=== PATIENT | male | born 1955 | race Hispanic/Latino ===

== ENCOUNTER 2023-12-19 17:22 | Inpatient (IN) | payer BC, OTHER ==
[2023-12-19] MEDS ORDERED: NA CHLORIDE 0.9% 1,000 ML ONE ×2 (18:10→20:11)
[2023-12-19 18:21] LABS: Absolute Lymphocytes (CBC) 0.2 K/uL (0.7-4.9); Absolute Monocytes 0.5 K/uL (0.1-1.3); Absolute Neutrophil 5.9 K/uL (1.8-8.0); Basophils % 0.2 % (0-1.3); Eosinophils % 0.7 % (0-4.4); Hematocrit 40.6 % (39.6-49.0); Hemoglobin 13.3 g/dL (13.6-17.9); Lymphocytes % 2.9 % (15.3-44.8); MCH 30.3 pg (27.0-35.0); MCHC 32.7 g/dL (32.0-36.0); MCV 92.7 fL (80-100); MPV 12.4 fL (7.6-11.3); Monocytes % 8.1 % (3.3-12.3); Neutrophils % 88.1 % (41.7-73.7); Platelets 85 thou/uL (152-406); RBC Red Blood Cell Count 4.38 M/uL (4.33-5.43)
[2023-12-19 18:39] LABS: Magnesium 2.5 mg/dL (1.6-2.4)
[2023-12-19 18:52] LABS: PTT, Activated Partial Thromb 21.8 SECONDS (24.3-36.9); Protime INR 1.19
[2023-12-19] MEDS ORDERED: CALCIUM GLUCONATE 1 GM IVPB 2 GM/100 ML BAG IV ONE (19:03)
[2023-12-19 19:08] LABS: Band Neutrophils 11 % (0-1); Blood Morphology Comment NOT SEEN (NOT SEEN); Differential Total Cells Count 100; Lymphocytes 4 % (15-42); Monocytes 14 % (0-10); Platelet Estimate DECR; Segmented Neutrophils 71 % (40-80); Toxic Granulation 1+; White Blood Cell Scan OK (OK)
[2023-12-19] MEDS ORDERED: KCL 20 MEQ/100 mL IVPB 100 ML IV ONE (20:11)
--- NOTE | 2023-12-19 20:53 | RAD REPORT ---
[facility] 6[facility]58 pm CLINICAL HISTORY: hypotension COMPARISON: No comparisons TECHNIQUE: Portable AP view of the chest. FINDINGS: The lungs are clear. No pneumothorax or effusion. The cardiomediastinal contours are unre markable. IMPRESSION: No acute cardiopulmonary process.
--- NOTE | 2023-12-19 21:09 | ER ---
Nurse's Notes [facility] Name: Shailesh Zavala Age: 68 yrs Sex: Male : 1955 Arrival Date: 12/19/2023 Time: 17:22 Bed 14 Private MD: Darren Allan Diagnosis: Hypocalcemia, hypokalemia, hyponatremia, dehydration, bandemia Presentation: 12/18 17:49 Chief complaint: Patient states: sent from dr office for low calcium. Coronavirus ko1 screen: At this time, the client does not indicate any symptoms associated with coronavirus-19. Ebola Screen: No symptoms or risks identified at this time. Initial Sepsis Screen: Does the patient meet any 2 criteria? No. Patient's initial sepsis screen is negative. Does the patient have a suspected source of infection? No. Patient's initial sepsis screen is negative. Risk Assessment: Do you want to hurt yourself or someone else? Patient reports no desire to harm self or others. Onset of symptoms is unknown. 17:49 Method Of Arrival: Wheelchair ko1 17:49 Acuity: LUCRETIA 3 ko1 Triage Assessment: 17:52 General: Appears in no apparent distress. ill, Behavior is calm, cooperative, ko1 appropriate for age. Pain: Complains of pain in abdomen. Historical: - Allergies: 17:52 No Known Allergies; ko1 - PMHx: 17:52 multiple myeloma; ko1 - Immunization history:: Adult Immunizations up to date. - Infectious Disease History:: Denies. - Social history:: Smoking status: Patient denies any tobacco usage or history of. - Family history:: not pertinent. - Hospitalizations: : No recent hospitalization is reported. Screenin:43 [facility] ED Fall Risk Assessment (Adult) History of falling in the last 3 months, cp4 including since admission No falls in past 3 months (0 pts) Confusion or Disorientation No (0 pts) Intoxicated or Sedated No (0 pts) Impaired Gait No (0 pts) Mobility Assist Device Used No (0 pt) Altered Elimination No (0 pt) Score/Fall Risk Level 0 - 2 = Low Risk. Abuse screen: Denies threats or abuse. Nutritional screening: No deficits noted. Tuberculosis screening: No symptoms or risk factors identified. Assessment: 18:43 General: Appears ill, Behavior is calm, cooperative, appropriate for age. Pain: Denies cp4 pain. Neuro: Level of Consciousness is awake, alert, obeys commands, Oriented to person, place, time, situation, Ancillary Specialist are equal bilaterally Moves all extremities. Gait is unsteady, Speech is normal, Facial symmetry appears normal, Pupils are PERRLA, Intact. 22:10 General: Appears in no apparent distress. uncomfortable, Behavior is calm, cooperative, jw7 appropriate for age. Pain: Denies pain. Neuro: Level of Consciousness is awake, alert, obeys commands, Oriented to person, place, time, situation. Cardiovascular: Capillary refill < 3 seconds Patient's skin is warm and dry. 22:10 GI: Abdomen is round non-distended, Bowel sounds present X 4 quads. Abd is soft Abdomen jw7 is tender to palpation. : No deficits noted. No signs and/or symptoms were reported regarding the genitourinary system. EENT: No deficits noted. No signs and/or symptoms were reported regarding the EENT system. Derm: Skin is intact, is healthy with good turgor, Skin is dry, Skin is normal, Skin temperature is warm. Musculoskeletal: Circulation, motion, and sensation intact. Range of motion: intact in all extremities. 22:10 Respiratory: Airway is patent Trachea midline Respiratory effort is even, unlabored, jw7 Respiratory pattern is regular, symmetrical, Breath sounds are clear bilaterally. Vital Signs: 17:49 BP 98 / 52; Pulse 93; Resp 16; Temp 97.6; Pulse Ox 97% ; ko1 18:30 BP 81 / 51; Pulse 83; Resp 18; Pulse Ox 94% ; cp4 19:00 BP 77 / 49; Pulse 82; Resp 18; Pulse Ox 96% ; cp4 19:24 BP 88 / 46; Pulse 84; Resp 18; Pulse Ox 96% ; Weight 80.29 kg; cp4 19:57 BP 90 / 46; Pulse 82; Resp 17; Pulse Ox 96% ; cp4 20:30 BP 87 / 46; Pulse 84; Resp 18; Pulse Ox 96% ; cp4 21:00 BP 91 / 48; Pulse 82; Resp 17; Pulse Ox 96% ; cp4 22:15 BP 91 / 49; Pulse 85; Resp 18 S; Pulse Ox 93% on R/A; jw7 ED Course: 17:24 Patient arrived in ED. mr 17:24 Darren Allan DO is Private Physician. mr 17:32 Toby Dennis MD is Attending Physician. rn 17:52 Triage completed. ko1 17:52 Arm band placed on right wrist. Patient placed in an exam room, on a stretcher, on ko1 senior environmental scientist, on pulse oximetry, Patient notified of wait time. 17:54 Winter Bhatia is Primary Nurse. cp4 18:11 Magnesium Sent. em1 18:11 BMP Sent. em1 18:11 CBC with Diff Sent. em1 18:11 Initial lab(s) drawn, by al, sent to lab. Inserted saline lock: 22 gauge in right em1 forearm, using aseptic technique. Blood collected. 18:43 Placed in gown. Bed in low position. Call light in reach. Side rails up X2. cp4 18:43 Blood Culture Adult (2) Sent. cp4 18:43 No provider procedures requiring assistance completed. cp4 18:59 Chest Single View XRAY In Process Unspecified. EDMS 20:04 Attending Physician role handed off by Toby Dennis MD sp3 20:04 Onel Allan MD is Attending Physician. sp3 21:08 Prince Sawyer MD is Hospitalizing Provider. sp3 21:09 CT Abd/Pelvis - IV Contrast Only In Process Unspecified. EDMS 22:10 Provided Education on: Use of Call Light. jw7 22:34 Patient admitted, IV remains in place. jw7 Administered Medications: 18:39 Drug: NS 0.9% IV 1000 ml IV at 1000 ml once Route: IV; Rate: 1000 ml; Site: right cp4 antecubital; 20:15 Follow up: Response: No adverse reaction; IV Status: Completed infusion cp4 19:07 Drug: Calcium Gluconate IVPB 2 grams IVPB once over 60 mins; (mix in NS 100 mL) Route: cp4 IVPB; Infused Over: 60 mins; Site: right antecubital; 20:02 Follow up: Response: No adverse reaction; IV Status: Completed infusion cp4 20:15 Drug: NS 0.9% IV 1000 ml IV at 1000 ml once Route: IV; Rate: 1000 ml; Site: right cp4 antecubital; 22:35 Follow up: Response: No adverse reaction; IV Status: Completed infusion; IV Intake: jw7 1000ml 20:15 Drug: Potassium Chloride IV 20 mEq IV at calculated rate once; administer over 1-2 cp4 hours Route: IV; Rate: calculated rate; Site: right antecubital; 22:35 Follow up: Response: No adverse reaction; IV Status: Infusion continued upon admission; jw7 IV Intake: 25ml 20:43 Drug: NS 0.9% IV (30 ml/kg) 30 ml/kg IV at bolus once; subtract fluids already given, cp4 for total of 30ml/kg Route: IV; Rate: bolus; Site: right antecubital; 22:35 Follow up: Response: No adverse reaction; IV Status: Completed infusion; IV Intake: jw7 2408ml 22:00 Drug: Cefepime IVPB 1 grams IVPB at 200 ml/hr once over 30 mins; (mix in NS 100 mL) cp4 Route: IVPB; Rate: 200 ml/hr; Infused Over: 30 mins; Site: right antecubital; 22:34 Follow up: Response: No adverse reaction; IV Status: Completed infusion; IV Intake: jw7 100ml Medication: 18:43 VIS not applicable for this client. cp4 Intake: 22:34 IV: 100ml; Total: 100ml. jw7 22:35 IV: 2408ml; Total: 2508ml. jw7 22:35 IV: 1000ml; Total: 3508ml. jw7 22:35 IV: 25ml; Total: 3533ml. jw7 Outcome: 21:09 Decision to Hospitalize by Provider. sp3 22:33 Admitted to OR accompanied by nurse, family with patient, via stretcher, norris 22:33 Condition: stable 22:33 Instructed on the need for admit, Need for Surgery Demonstrated understanding of instructions, 22:37 Patient left the ED. jw7 Signatures: Dispatcher [employer] EDWA HamiltonGaviota cline, Reg Reg mr Toby Dennis MD MD rn Martinez, Eric em1 Patel, Setul, MD MD sp3 Nakia Valencia RN RN jwMadyson Roberts RN RN Winter Meade cp4 Corrections: (The following items were deleted from the chart) 22:33 22:27 General: Appears in no apparent distress. uncomfortable, Behavior is calm, jw7 cooperative, appropriate for age, jwTrisha 22:33 22:27 Pain: Denies pain. jw7 jw7 22:27 Neuro: Level of Consciousness is awake, alert, obeys commands, Oriented to jw7 person, place, time, situation, jw7 : Cardiovascular: Capillary refill < 3 seconds Patient's skin is warm and dry. jw7 7 :27 Respiratory: Airway is patent Trachea midline Respiratory effort is even, jw7 unlabored, Respiratory pattern is regular, symmetrical, jw7
--- NOTE | 2023-12-19 21:09 | EDPHYS ---
Physician Documentation [facility] Name: Shailesh Zavala Age: 68 yrs Sex: Male : 1955 Arrival Date: 12/19/2023 Time: 17: Bed 14 Private MD: Jerrell [facility] ED Physician Onel Allan HPI: 12/18 17:59 This 68 yrs old Male presents to ER via Wheelchair with complaints of Abnormal rn picu Results. 17:59 Patient reports has multiple myeloma and currently undergoing chemotherapy. Had blood rn work drawn and showed low calcium, told to come to emergency room for infusion. No other acute complaints. Reports chronic lower abdominal pain that he is being worked up with GI and PCP. No vomiting or diarrhea. No fever. Reports muscle cramping and generalized weakness. Onset: The symptoms/episode began/occurred at an unknown time. Severity of symptoms: At their worst the symptoms were mild in the emergency department the symptoms are unchanged. The patient has not experienced similar symptoms in the past. The patient has been recently seen by a physician:. Historical: - Allergies: 17:52 No Known Allergies; ko1 - PMHx: 17:52 multiple myeloma; ko1 - Immunization history:: Adult Immunizations up to date. - Infectious Disease History:: Denies. - Social history:: Smoking status: Patient denies any tobacco usage or history of. - Family history:: not pertinent. - Hospitalizations: : No recent hospitalization is reported. ROS: 17:59 Constitutional: Negative for fever, chills, and weight loss, Neck: Negative for injury, rn pain, and swelling, Cardiovascular: Negative for chest pain, palpitations, and edema, Respiratory: Negative for shortness of breath, cough, wheezing, and pleuritic chest pain, Abdomen/GI: Negative for abdominal pain, nausea, vomiting, diarrhea, and constipation, Back: Negative for injury and pain, MS/Extremity: Negative for injury and deformity, Skin: Negative for injury, rash, and discoloration, Neuro: Positive for generalized weakness Exam: 17:59 Constitutional: This is a well developed, well nourished patient who is awake, alert, rn and in no acute distress. ENT: Dry mucous membranes Cardiovascular: Regular rate and rhythm. No pulse deficits. Respiratory: No increased work of breathing, no retractions or nasal flaring. Abdomen/GI: Soft, non-tender Neuro: Awake and alert, GCS 15 Vital Signs: 17:49 BP 98 / 52; Pulse 93; Resp 16; Temp 97.6; Pulse Ox 97% ; ko1 18:30 BP 81 / 51; Pulse 83; Resp 18; Pulse Ox 94% ; cp4 19:00 BP 77 / 49; Pulse 82; Resp 18; Pulse Ox 96% ; cp4 19:24 BP 88 / 46; Pulse 84; Resp 18; Pulse Ox 96% ; Weight 80.29 kg; cp4 19:57 BP 90 / 46; Pulse 82; Resp 17; Pulse Ox 96% ; cp4 20:30 BP 87 / 46; Pulse 84; Resp 18; Pulse Ox 96% ; cp4 21:00 BP 91 / 48; Pulse 82; Resp 17; Pulse Ox 96% ; cp4 22:15 BP 91 / 49; Pulse 85; Resp 18 S; Pulse Ox 93% on R/A; jw7 MDM: 17:32 Patient medically screened. rn 19:31 ED course: Once triage, patient noted to be hypotensive. Will order full 30/kg bolus rn and reassess situation. No source of infection identified at this time.. 21:06 Data reviewed: vital signs, lab test result(s). ED course: I spoke to patient and sp3 confirmed the patient is not on immunotherapy. Given his extensive electrolyte abnormalities and bandemia, I have started cefepime. Patient will be admitted to hospitalist service for further follow-up and intervention as indicated.. 21:56 ED course: CT scan demonstrates extensive free air from bowel perforation. I have sp3 discussed this with Dr. Moore who will be coming in for emergency surgery. Patient will be placed in the ICU for continued hemodynamic support. Dr. Silverio torres is also here in the ED evaluating the patient.. 22:01 ED course: . sp3 12/18 17:50 Order name: CBC with Diff; Complete Time: 19:10 rn 12/18 17:50 Order name: BMP; Complete Time: 19:02 rn 12/18 17:50 Order name: Magnesium; Complete Time: 19:02 rn 12/18 18:14 Order name: Blood Culture Adult (2) rn 12/18 18:14 Order name: CMP rn 12/18 18:14 Order name: Lactate w/ 2H reflex if indic.; Complete Time: 19:10 rn 12/18 18:14 Order name: Protime (+inr); Complete Time: 19:02 rn 12/18 18:14 Order name: Ptt, Activated; Complete Time: 19:02 rn 12/18 18:14 Order name: Urinalysis w/ reflexes rn 12/18 18:28 Order name: CBC Smear Scan; Complete Time: 19:10 EDMS 12/18 19:07 Order name: Manual Differential; Complete Time: 19:10 EDMS 12/18 18:14 Order name: Chest Single View XRAY; Complete Time: 21:51 rn 12/18 18:16 Order name: CT Abd/Pelvis - IV Contrast Only; Complete Time: 21:56 rn 12/18 17:50 Order name: EKG; Complete Time: 17:51 rn 12/18 17:50 Order name: IV Start; Complete Time: 18:11 rn 12/18 17:50 Order name: EKG - Nurse/Tech; Complete Time: 18:43 rn 12/18 18:14 Order name: Accucheck; Complete Time: 18:39 rn 12/18 18:14 Order name: Cardiac monitoring; Complete Time: 18:39 rn 12/18 18:14 Order name: IV Saline Lock - Large Bore; Complete Time: 18:39 rn 12/18 18:14 Order name: Labs collected and sent; Complete Time: 18:39 rn 12/18 18:14 Order name: O2 Per Protocol; Complete Time: 18:39 rn 12/18 18:14 Order name: O2 Sat Monitoring; Complete Time: 18:39 rn 12/18 18:14 Order name: Vital Signs; Complete Time: 18:39 rn 12/18 19:42 Order name: Misc. Order: Recollect - Blue Top; Complete Time: 20:10 ty 12/18 21:57 Order name: NPO; Complete Time: 22:00 sp3 Administered Medications: 18:39 Drug: NS 0.9% IV 1000 ml IV at 1000 ml once Route: IV; Rate: 1000 ml; Site: right cp4 antecubital; 20:15 Follow up: Response: No adverse reaction; IV Status: Completed infusion cp4 19:07 Drug: Calcium Gluconate IVPB 2 grams IVPB once over 60 mins; (mix in NS 100 mL) Route: cp4 IVPB; Infused Over: 60 mins; Site: right antecubital; 20:02 Follow up: Response: No adverse reaction; IV Status: Completed infusion cp4 20:15 Drug: NS 0.9% IV 1000 ml IV at 1000 ml once Route: IV; Rate: 1000 ml; Site: right cp4 antecubital; 22:35 Follow up: Response: No adverse reaction; IV Status: Completed infusion; IV Intake: jw7 1000ml 20:15 Drug: Potassium Chloride IV 20 mEq IV at calculated rate once; administer over 1-2 cp4 hours Route: IV; Rate: calculated rate; Site: right antecubital; 22:35 Follow up: Response: No adverse reaction; IV Status: Infusion continued upon admission; jw7 IV Intake: 25ml 20:43 Drug: NS 0.9% IV (30 ml/kg) 30 ml/kg IV at bolus once; subtract fluids already given, cp4 for total of 30ml/kg Route: IV; Rate: bolus; Site: right antecubital; 22:35 Follow up: Response: No adverse reaction; IV Status: Completed infusion; IV Intake: jw7 2408ml 22:00 Drug: Cefepime IVPB 1 grams IVPB at 200 ml/hr once over 30 mins; (mix in NS 100 mL) cp4 Route: IVPB; Rate: 200 ml/hr; Infused Over: 30 mins; Site: right antecubital; 22:34 Follow up: Response: No adverse reaction; IV Status: Completed infusion; IV Intake: jw7 100ml Disposition Summary: 12/19/23 21:09 Hospitalization Ordered Notes: Hospitalization Status: Inpatient Admission sp3 Provider: Prince Silverio sp3 Location: Telemetry/[facility] (Inpatient) sp3 Condition: Stable sp3 Problem: an acute exacerbation sp3 Symptoms: have worsened sp3 Bed/Room Type: Standard sp3 Room Assignment: sp3 Diagnosis - Hypocalcemia, hypokalemia, hyponatremia, dehydration, bandemia sp3 Forms: - Medication Reconciliation Form sp3 - SBAR form sp3 - Leadership Thank You Letter sp3 Critical care time excluding procedures: 22:01 Critical care time: Bedside Care: 10 minutes, Consultation: 15 minutes, Family sp3 Intervention: 10 minutes. Total time: 35 minutes Signatures: Dispatcher [employer] EDToby Gallardo MD MD rn Patel, Setul, MD MD sp3 Madyson Field, RN RN [email or web address] Winter Bhatia cp4 Adama Palomares Jodi RN jw7 Corrections: (The following items were deleted from the chart) 18:15 18:15 BLOOD CULTURE*+BA.LAB.BRZ ordered. EDMS EDMS 18:15 18:15 COMPREHENSIVE METABOLIC PANEL+C.LAB.BRZ ordered. EDMS EDMS 18:15 18:15 LACTATE+C.LAB.BRZ ordered. EDMS EDMS 18:15 18:15 PROTIME (+INR)+COAG.LAB.BRZ ordered. EDMS EDMS 18:15 18:15 PTT, ACTIVATED+COAG.LAB.BRZ ordered. EDMS EDMS 18:15 18:15 Urinalysis+U.LAB.BRZ ordered. EDMS EDMS 18:15 18:15 Chest Single View+RAD.RAD.BRZ ordered. EDMS EDMS
[2023-12-19] MEDS: NA CHLORIDE 0.9% 1,000 ML IV SCH (21:16)
--- NOTE | 2023-12-19 21:27 | P.HP ---
Certification for Inpatient Patient admitted to: Inpatient With expected LOS: >2 Midnights Practitioner: I am a practitioner with admitting privileges, knowledge of patient current condition, hospital course, and medical plan of care. Services: Services provided to patient in accordance with Admission requirements found in Title 42 Section 412.3 of the Code of Federal Regulations Patient History Date of Service: 12/19/23 Reason for admission: Perforated bowel History of Present Illness: Patient is a 68-year-old male with newly diagnosed multiple myeloma and currently on chemotherapy. Presented to the ER accompanied by daughter after his oncologist urged him to present to the ER due to electrolyte abnormalities. Patient has severe hypocalcemia with a calcium of 5.9, hypokalemia with a potassium of 3.0 and hyponatremia with a sodium of 127. He has received some potassium replacement by the ER, 2 L of normal saline and 1 g of calcium gluconate. Daughter states that patient has been weak over the past few weeks. His appetite has been poor as well. Additionally, patient has been having abdominal pain especially in the epigastric area. CT abdomen pelvis revealed perforated small bowel. General surgery was urgently consulted and patient be taken to the OR. Allergies No Known Allergies Allergy (Verified 10/23/23 10:14) Physical Examination - Physical Exam General: Mild distress, Other (Frail) HEENT: Atraumatic, Normocephalic Neck: Supple Respiratory: Clear to auscultation bilaterally, Normal air movement Cardiovascular: No edema, Normal pulses, Regular rate/rhythm, Normal S1 S2 Gastrointestinal: Other (Mildly distended abdomen and epigastric tenderness), Tenderness Neurological: Normal speech, Cranial nerves 3-12 intact - Studies Laboratory Data (last 24 hrs) 12/19/23 12/19/23 12/19/23 18:35 18:10 18:10 WBC 6.70 Hgb 13.3 L Hct 40.6 Plt Count 85 L PT 13.0 H INR 1.19 APTT 21.8 L Sodium 127 L Potassium 3.0 L BUN 73 H Creatinine 2.84 H Glucose 288 H Magnesium 2.5 H Assessment and Plan - Problems (Diagnosis) (1) Multiple myeloma Current Visit: Yes Status: Acute (2) Generalized weakness Current Visit: Yes Status: Acute (3) Hypocalcemia Current Visit: Yes Status: Acute (4) Hyponatremia Current Visit: Yes Status: Acute (5) Hypokalemia Current Visit: Yes Status: Acute (6) Thrombocytopenia Current Visit: Yes Status: Acute (7) ARSALAN (acute kidney injury) Current Visit: Yes Status: Acute - Plan Assessments Patient is a 68-year-old male currently on chemotherapy for multiple myeloma. He received chemotherapy this morning and was later called by his oncologist to present to the ER for evaluation of hypocalcemia. Patient and has been having abdominal pain over the past week. Outpatient abdominal ultrasound obtained on 12/15 revealed gallbladder sludge. During this admission, a CT abdomen pelvis revealed a perforated small bowel. Perforated small bowel - please refer to report below General surgery consulted Patient will be taken urgently to the OR Transfer to ICU after surgery due to borderline blood pressure IMPRESSION: Extensive intraperitoneal free air and moderate mostly free fluid in the right flank and pelvis. Areas of poorly loculated fluid in the left aspect of the mesenteric, with adjacent mild fat stranding, may suggest adjacent small bowel perforation, although the site of perforation remains indeterminate. Numerous lucent osseous lesions, concerning for metastatic disease. Healing pathologic fracture of the anterior left ninth rib Hypotension Patient's SBP has remained in the low 90s despite receiving 2 L of fluid Should be transferred to the ICU after his surgery Given patient's immunosuppressive state and perforated viscus, will treat empirically with broad-spectrum antibiotics ARSALAN Most likely prerenal azotemia from a poor oral intake He has received 2 L of normal saline in the ER Will continue with normal saline infusion His baseline creatinine is 0.9 Consider nephrology consult if patient fails to respond to intervention above Electrolyte abnormalities Sodium of 127, potassium of 3.0 and chloride of 91 Patient has received normal saline and potassium replacement in the ER We are repeating BMP in 1 hour will replace as needed Hypermagnesemia Continue monitor Thrombocytopenia Platelet of 85,000. Most likely chemo induced Will avoid anticoagulation for now Generalized weakness Multifactorial: Due to ongoing chemotherapy and malignancy Nutrition consulted PT/OT ordered as well DVT prophylaxisSCD DispoHome when medically cleared CODE STATUSfull code - Advance Directives Does patient have a Living Will: No Does patient have a Durable POA for Healthcare: No
[2023-12-19] MEDS ORDERED: CEFEPIME 1 GM/VIAL ONE (21:55)
[2023-12-19] MEDS ORDERED: NA CHLORIDE 0.9% 100 ML ONE (21:55)
--- NOTE | 2023-12-19 21:55 | RAD REPORT ---
EXAM DESCRIPTION: CT - Abdomen Pelvis W Contrast - 12/19/2023 9:09 pm CLINICAL HISTORY: hypotension;Abd pain COMPARISON: Chest Single View dated 12/19/2023; Abdomen Exam Complete dated 12/16/2023; Shoulder Left Wo Con dated 07/12/2023 TECHNIQUE: Thin cut axial CT imaging of the abdomen and pelvis was performed following intravenous a dministration of 75 mL Isovue 300. Multiplanar reformats were generated and reviewed. All CT scans are performed using dose optimization technique as appropriate and may include automated exposure control or mA/KV adjustment according to patient size. FINDINGS: No suspicious findings in the lung bases. Trace layering left pleural effusion The liver, spleen, adrenal glands, and pancreas show no suspicious findings. Gallbladder is moderatel y distended with numerous small layering calculi. Symmetric renal function is seen with no hydronephrosis or suspicious renal mass. 3.1 cm exophytic le ft superior pole cyst. Extensive intraperitoneal free air, and moderate free fluid in the right flank and pelvis. Long segme nts of mildly prominent small bowel without focal transition. Small areas of poorly loculated fluid a long the mesentery left of midline, with some adjacent mild adventitial small-bowel fat stranding, bueno ggesting a at the site of perforation median dislocation. Mild colonic diverticulosis. No free air, f ree fluid or inflammatory stranding. No hernia, mass or bulky lymphadenopathy. The urinary bladder is without significant finding. Numerous rounded and ovoid lucent osseous lesions. One of the lesions is present along the anterior l eft ninth rib, with changes of a healing pathologic fracture. Partial healing of internally fixated r ight proximal femoral shaft fracture. . IMPRESSION: Extensive intraperitoneal free air and moderate mostly free fluid in the right flank and pelvis. Areas of poorly loculated fluid in the left aspect of the mesenteric, with adjacent mild fat strandin g, may suggest adjacent small bowel perforation, although the site of perforation remains indetermina te. Numerous lucent osseous lesions, concerning for metastatic disease. Healing pathologic fracture of th e anterior left ninth rib. Cholelithiasis. Trace layering left pleural effusion. The findings were communicated to Onel Allan on 12/19/2023 at 21:48 hours.
[2023-12-19] MEDS: CEFEPIME 1 GM in NA CHLORIDE 0.9% 100 ML IV SCH (22:05)
[2023-12-19] MEDS ORDERED: VANCOMYCIN 1 GM in NA CHLORIDE 0.9% 250 ML IVPB SCH (22:06)
[2023-12-19] MEDS: METRONIDAZOLE 500mg IVPB 500 MG/100 ML BAG IV SCH (22:30)
[2023-12-19] MEDS: VANCOMYCIN 1.5 GM in NA CHLORIDE 0.9% 500 ML IVPB ONE (22:30)
[2023-12-19] MEDS: Ringers Lactate 1,000 ML IV ONE ×2 (22:35)
--- NOTE | 2023-12-20 01:06 | P.BOP ---
Preoperative diagnosis: Peritonitis, perforated viscous, MM cancer on chemotherapy Postoperative diagnosis: Perforated diverticulitis, intrabdominal abscess, ventral hernia Primary procedure: 1. Emergent exploratory laparotomy, 2. sigmoid bowel resection Secondary procedure: 3. End colostomy, 4. evacuation of intrabdominal abscess Other procedure(s): 5. Repair of ventral hernia 3cm Estimated blood loss: <100cc Specimen: perforated sigmoid colon Findings: perforated sigmoid colon, intrabdominal abscess Anesthesia: General Complications: None Drain(s): Nasogastric, Urinary catheter, MILLY drain, Other (Packing wet to dry) Transferred to: ICU Condition: Critical
[2023-12-20] MEDS: NA CHLORIDE 0.9% 1,000 ML ONE (01:15)
[2023-12-20] MEDS ORDERED: ONDANSETRON 4 MG/2 ML VIAL IV PRN (01:16)
[2023-12-20] MEDS ORDERED: SODIUM CHLORIDE 0.9% 10ML INJ IV PRN (01:16)
[2023-12-20] MEDS ORDERED: PIPER TAZO 3.375 GM in NA CHLORIDE 0.9% 100 ML IV ONE (01:30)
[2023-12-20] MEDS: HYDROMORPHONE HCL 1 MG/ML INJ ONE (01:45)
[2023-12-20] MEDS: NA CHLORIDE 0.9% 1,000 ML IV SCH (02:38)
[2023-12-20] MEDS: PIPER TAZO 3.375 GM in NA CHLORIDE 0.9% 100 ML IV ONE (02:39)
[2023-12-20] MEDS: NA CHLORIDE 0.9% 100 ML ONE (02:40)
[2023-12-20] MEDS: NA CHLORIDE 0.9% 1,000 ML IV ONE (03:30)
[2023-12-20] MEDS: HYDROMORPHONE HCL 1 MG/ML INJ IV PRN (03:35)
[2023-12-20] MEDS ORDERED: NOREPINEPHRINE BITARTRATE/D5W 4 MG/250 ML BAG IV ONE (04:36)
[2023-12-20] MEDS: NOREPINEPHRINE 4 MG in D5W 250 ML IV SCH (04:49)
--- NOTE | 2023-12-20 05:00 | CON ---
Date of Consultation: 12/19/2023 Diagnoses: Pneumoperitoneum, acute abdominal pain, peritonitis. History Of Present Illness: This is a case of a 68-year-old patient, came to us in ER today after se en this morning by the oncologist and found to have electrolyte abnormalities and sent to the ER. Th ey have been doing a workup on him. They mentioned also for the last 2 weeks he has been having some abdominal pain. Since that did not improve this afternoon, they decided to do a CAT scan and now it was discovered the patient has free air in the diaphragm, unknown etiology and General Surgery now c ray for evaluation. He says he does not have any specific reason for it. He has no previous surge j luis. He having pain so he did not think that this was something different from before un til he got a little bit worse. He denies any recent colonoscopy, he says was several years ago and h as been followed with [facility] over the last few years. The last one was last year and he stated th ere was no cancer found. The multiple myeloma was found in May when he had some shoulder pain a nd when they did the workup, they found something strange and they find out to have cancer. He has b een in chemotherapy to the point that the last chemotherapy was done this morning. The patient nausea with no vomiting. No dysuria, hematuria, hematochezia or melena. Allergies: NONE. Medical Problems: Diabetes, although no insulin dependent. Surgeries: None. Social History: He does not smoke. He does not drink alcohol. Family History: Noncontributory. Review of Systems: Ten points, otherwise, unremarkable. Physical Examination: General: The patient is awake and alert. Eyes: Pupils are equal and reactive. Anicteric. Neck: Supple. Chest: Clear. Abdomen: Distended, generalized abdominal pain with guarding and rebound. Rectal: Deferred. Extremities: Good capillary refill. Laboratory Data: Blood work shows WBC count of 6.7, hemoglobin of 13, platelets of 85. Coag, INR 1. 19, calcium is 5.9, glucose 288, sodium is 127, potassium 3.0, bicarb is 22, creatinine is 2.84. CAT scan of the abdomen and pelvis interpreted by Dr. Ashour as extensive intraperitoneal free fluid and moderate free fluid in the right flank and pelvis. Long segments of mild prominent small bowel w ithout focal transition. Small area of pleural loculated fluid along the mesentery left of the midli ne with some adjacent mild adventitial small bowel fat stranding suggesting a site of perforation. M ild colonic diverticulosis. No hernias seen. Numerous rounded and ovoid osseous lesions suggestive of metastatic cancer. Assessment: This is a 68-year-old patient with multiple myeloma, chemotherapy as recent as this morn ing, found to have electrolyte abnormalities and also in the abdomen, undetermined etiolog y. The patient has peritonitis. He understand the options of emergent laparotomy, possible bowel re section, possible ostomy with benefits, alternatives, and risks including, but not limited to infecti on, bleeding, damage to adjacent structures, anesthesia complication, abscess, SD, even . He al so understands this may not relieve the symptoms, he might need well a surgical intervention, he unde rstands this is a life threatening condition. He still wants to proceed with surgery. LUANN/PETER Voice ID: [id number] Report ID: [id number]
[2023-12-20] MEDS: CEFOXITIN 1 GM in NA CHLORIDE 0.9% 50 ML IVPB SCH (05:09)
[2023-12-20] MEDS ORDERED: CEFOXITIN 1 GM in NA CHLORIDE 0.9% 50 ML IVPB SCH (06:00)
[2023-12-20] MEDS: CALCIUM GLUCONATE 1 GM IVPB 1 GM/50 ML BAG IV ONE ×5 (06:32→23:02)
[2023-12-20] MEDS: CALCIUM GLUC 10% INJ 4.65 MEQ in NA CHLORIDE 0.9% 100 ML IV ONE (07:00)
[2023-12-20] MEDS ORDERED: POTASSIUM CL 40 MEQ in NA CHLORIDE 0.9% 500 ML IV SCH (07:00)
--- NOTE | 2023-12-20 07:05 | P.PN ---
Date of Service: 12/20/23 Subjective: ROS: 10 point ROS as noted above, otherwise negative Physical Exam: GEN: Alert, oriented, NAD HEENT: Normal conjunctiva, sclera anicteric, NGT in place CV: Regular rate and rhythm, no edema Pulm: Nonlabored respirations on 3L NC, diminished ABD: epigastric tederness, dressing in placed packed wet to dry with blood on dressing, colostomy bag in place with blood-tinged stool output Neuro: Normal speech, normal affect NGT in place Sol in place MILLY drain in place colostomy bag in place vitals reviewed Problem List: Perforated diverticulitis, s/p sigmoid bowel resection with end colostomy (12/19) intraabdominal abscess s/p evacuation (12/19) Ventral hernia 3cm s/p repair (12/19) NSTEMI Hypotension ARSALAN Hyponatremia, Hypokalemia, Hypocalcemia Multiple myeloma on chemotherapy Generalized weakness Thrombocytopenia Perforated diverticulitis, s/p sigmoid bowel resection with end colostomy (12/19) intraabdominal abscess s/p evacuation (12/19) Ventral hernia 3cm s/p repair (12/19) Hypotension Came to ER per patients oncologist due to outpatient labs with electrolyte abnormalities. Presents with epigastric abdominal pain, generalized weakness, poor PO intake over the past weeks. CT abdomen (12/19): Extensive intraperitoneal free air and moderate mostly free fluid in the right flank and pelvis. Areas of poorly loculated fluid in the left aspect of the mesenteric, with adjacent mild fat stranding, may suggest adjacent small bowel perforation, although the site of perforation remains indeterminate. Numerous lucent osseous lesions, concerning for metastatic disease. Healing pathologic fracture of the anterior left ninth rib Moderate gallbladder distention with numerous small layering calculi. Trace layering left pleural effusion Recent abdominal ultrasound (12/15) fatty liver, gallbladder distention with sludge, benign 3.1 cm cyst left kidney KUB (12/19): ordered to further evlucrecia Moore, general surgery consulted Taken to OR for emergent ex lap, found to have perforated diverticulitis, intrabdominal abscess, ventral hernia s/p sigmoid bowel resection with end colostomy, evacuation of intraabdominal abscess, and ventral hernia repair (12/19) NGT, MILLY drain in place wound care per surgery IV Protonix BID Continue empiric zosyn and cefoxitin (12/19-) ID consulted afebrile, no leukocytosis follow blood and wound cultures PRN analgesics / antiemetics Dr. Rich, pulm/sheet metal former consulted PICC line ordered 12/19 STEMI Patient noted to be in vtach HR 140s this morning and felt like his heart was racing. +chest pain Rapid response called ~5:50 am today. BP dropped to 43/38 - MAP 43 levophed adjusted EKG with ST elevations Cardiology called this morning and on way in to take patient for cath for STEMI aspirin 325mg, brilinta, and heparin IV 4000 x1 ordered per cardiology recs prior to cath continue close monitoring in ICU ARSALAN Hyponatremia, Hypokalemia, Hypocalcemia suspect prerenal ARSALAN secondary to poor intake. Family reports patients been feeling weak past few weeks and has had very poor appetite/intake. Creatinine 2.84 on admission Nephrology consulted Continue IV fluids on levophed drip continue to monitor renal function Monitor electrolytes. replete as needed Multiple myeloma on chemotherapy Generalized weakness Thrombocytopenia Reports recent diagnosis of multiple myeloma. On chemotherapy - last received chemo treatment 12/18 am. weakness and thrombocytopenia likely secondary to cancer / chemo PT/OT/Dietitian consult Code: Full Dispo: continue ICU level of care
[2023-12-20 07:17] LABS: AST/SGOT 11 U/L (15-37); Albumin 1.9 g/dL (3.4-5.0); Albumin/Globulin Ratio 0.6 (1.1-1.8); Alkaline Phosphatase 54 U/L (45-117); Anion Gap 16.1 mEq/L (5.0-15.0); BUN Blood Urea Nitrogen 70 mg/dL (7-18); Bicarbonate 20 mEq/L (21-32); Bilirubin Total 0.7 mg/dL (0.2-1.0); Globulin 3.3 g/dL (2.3-3.5); Glomerular Filtration Rate 26 ml/min (=/>90); Glucose Level 166 mg/dL (74-106); Magnesium 2.4 mg/dL (1.6-2.4); Potassium 3.1 mEq/L (3.5-5.1); Protein, Total 5.2 g/dL (6.4-8.2); Sodium Level 136 mEq/L (136-145)
[2023-12-20 07:18] LABS: ALT/SGPT < 14 U/L (16-61)
[2023-12-20] MEDS: TICAGRELOR 90 MG TABLET PO ONE (07:22)
[2023-12-20 07:23] LABS: Troponin High Sensitivity 293.3 pg/mL (<58.9)
[2023-12-20] MEDS: ASPIRIN 325 MG TAB PO ONE (07:23)
[2023-12-20] MEDS: HEPARIN 5000 UNIT/ML 1 ML VIAL IV ONE (07:23)
[2023-12-20] MEDS ORDERED: LIDOCAINE 1% 20 ML MDV ONE (07:25)
[2023-12-20] MEDS ORDERED: NITROGLYCERIN/D5W 50 MG/250 ML BTL IV ONE (07:25)
[2023-12-20] MEDS ORDERED: HEPA 1000U/500MLS 2,000 UNIT/1,000 ML BAG IV ONE (07:25)
[2023-12-20] MEDS: Mupirocin NASAL 2 APPL/1 GM TUBE NAS SCH (07:25)
[2023-12-20] MEDS: KCL 20 MEQ/100 mL IVPB 100 ML IV SCH (07:25)
[2023-12-20] MEDS ORDERED: MIDAZOLAM HCL 2 MG/2 ML INJ ONE (07:26)
[2023-12-20] MEDS ORDERED: TICAGRELOR 90 MG TABLET PO ONE (07:26)
[2023-12-20] MEDS ORDERED: ATROPINE SULF 1 MG/10 ML SYR IV ONE (07:26)
[2023-12-20] MEDS ORDERED: FENTANYL CITR 100 MCG/2 ML ONE (07:26)
[2023-12-20] MEDS: PANTOPRAZOLE 40 MG INJ IVP SCH (07:26)
[2023-12-20] MEDS ORDERED: HEPARIN 10,000 UNIT/10 ML VIAL IV ONE (07:27)
[2023-12-20] MEDS ORDERED: ASPIRIN 325 MG TAB ONE (07:27)
[2023-12-20] MEDS ORDERED: CLOPIDOGREL 75 MG TABLET ONE (07:27)
[2023-12-20] MEDS ORDERED: Phenylephrine HCl 10 MG/ML 1 ML VIAL ONE (07:28)
[2023-12-20] MEDS: NOREPINEPHRINE 8 MG in D5W 250 ML IV SCH (11:13)
[2023-12-20 11:19] LABS: Anion Gap 12.4 mEq/L (5.0-15.0); Potassium 3.4 mEq/L (3.5-5.1)
--- NOTE | 2023-12-20 11:34 | P.CNS ---
Date of Consult: 12/20/23 Reason for Consult: ARSALAN, hypocalcemia, hypokalemia Requesting Physician: Eddie Dennis Chief Complaint: Perforated bowel History of Present Illness: Pls note history obtained solely through chart review and information provided by family at bedside. Patient is a 68-year-old male with reports of multiple myeloma (unspecified stage/other) and currently on chemotherapy with recent administration. Presented to the ER yesterday reportedly being advised to do so after recent labs revealed electrolyte abnormalities. Patient found to have renal impairment and severe hypocalcemia with a total (uncorrected) calcium of 5.9, hypokalemia with a potassium of 3.0 and hyponatremia with a sodium of 127. Pt reported had beel weak over the past few weeks. His appetite has been poor as well. Additionally, patient had been having abdominal pain especially in the epigastric area. CT abdomen pelvis revealed perforated bowel and free air. S/p laparatomy and sigmoid colon resection with end colostomy and washout of peritonitis related abscess, other. Pt also in the post operative period developed V-tach and NSTEMI and is now s/p LHC and PCI with reported several stents placed. He is in the ICU on pressor support. Allergies No Known Allergies Allergy (Verified 10/23/23 10:14) - Past Medical/Surgical History Diabetic: Yes -: Multiple Myeloma - Social History Alcohol use: No CD- Drugs: No Caffeine use: Yes Place of Residence: Home Review of Systems is unable to be obtained Physical Examination Temp Pulse Resp BP Pulse Ox 96.7 F L 96 H 14 117/64 98 12/20/23 06:45 12/20/23 07:30 12/20/23 07:30 12/20/23 07:30 12/20/23 07:30 General: Other (Lethargic, resting) HEENT: Atraumatic, Normocephalic, Other (NC) Neck: Supple, Other (Rt IJ CVC) Respiratory: Other (b/l air entry without wheezes or rhonchi) Cardiovascular: Other (Non tachy, mostly regular) Gastrointestinal: Other (Distended, mild to mod, midline incision covered with dressing, left sided stoma with blood in the colostomy bag, MILLY drains) Musculoskeletal: Other (No sig LE edema, SCDs b/l) Integumentary: No rashes Neurological: Other (Lethargic, sleeping from recent sedation, no tremors or myoclonus noted) Laboratory Data (last 24 hrs) 12/19/23 12/19/23 12/19/23 18:35 18:14 18:10 WBC Hgb Hct Plt Count PT 13.0 H INR 1.19 APTT 21.8 L Sodium Cancelled 127 L Potassium Cancelled 3.0 L BUN Cancelled 73 H Creatinine Cancelled 2.84 H Glucose Cancelled 288 H Magnesium 2.5 H Total Bilirubin Cancelled AST Cancelled ALT Cancelled Alkaline Phosphatase Cancelled 12/19/23 18:10 WBC 6.70 Hgb 13.3 L Hct 40.6 Plt Count 85 L PT INR APTT Sodium Potassium BUN Creatinine Glucose Magnesium Total Bilirubin AST ALT Alkaline Phosphatase Conclusions/Impression: A/P) 1. Stage II ARSALAN in the setting of infection, hypotension, hypovolemia, other. Cr level acutely elevated from earlier in the mo. Now s/p contrast load with PCI, will have to see if PORTIA develops and perpetuates the renal injury. 2. However, UOP good currently, pt is non oliguric. 3. Hyponatremia on admission 2nd to hypovolemia with Na level rising with isotonic IVF, trend closely 4. Hypokalemia in the setting of GI losses, other -cont to replete with IV KCL, 20 meq IV given this AM, additional 20 meq ordered now 5. Severe hypocalcemia with total corrected Ca < 7 mg/dl, unclear if ionized Ca level sent off, will order STAT. Drop in Ca in the setting of acute illness +/- any recent administration of Prolia or bisphosphonates as OP as family mentions a prior hx of hypercelamia with MM. Will dose additional 2 gm of Ca gluconate now, 2 gm given this AM, each gram may raise levels by ~ 0.5 mg/dl 6. Hypotension in the setting of infection, peritonitis, other -cont pressor support, cont crystalloids, change maintenance IVF to a balanced solution like LR 7. Perforated viscus, peritonitis s/p lap, sigmoid colectomy with end colostomy -management per gen surgery Ike Friend MD, JUAN PABLO
--- NOTE | 2023-12-20 11:40 | RAD REPORT ---
EXAM DESCRIPTION: RADChest Single View12/20/2023 10:39 am CLINICAL HISTORY: central line placement COMPARISON: Chest Single View dated 12/19/2023 TECHNIQUE: Portable AP view of the chest. FINDINGS: Decreased inspiratory effort limits evaluation. Elevation of the right hemidiaphragm. Josseline hilar interstitial and streaky opacities, may reflect atelectasis or mild edema. Right IJ CVC in plac e with catheter tip projecting at the level of the right atrium. Enteric tube courses below the lower film margin. No pneumothorax or effusion. The cardiomediastinal contours are unremarkable. IMPRESSION: Right IJ CVC in place, with catheter tip projecting at the level of the right atrium. Perihilar interstitial and streaky opacities, may reflect atelectasis in the setting of decreased ins piratory effort, or mild edema.
[2023-12-20] MEDS: PIPER TAZO 3.375 GM in NA CHLORIDE 0.9% 100 ML IV SCH (11:55)
[2023-12-20] MEDS: Ringers Lactate 1,000 ML IV SCH (11:57)
[2023-12-20] MEDS: CALCIUM GLUCONATE 1 GM IVPB 1 GM/50 ML BAG IV SCH (11:57)
[2023-12-20] MEDS: KCL 20 MEQ/100 mL IVPB 20 MEQ/100 ML BAG IV SCH (11:57)
--- NOTE | 2023-12-20 12:50 | OP ---
Date of Procedure: 12/20/2023 Surgeon: Fred Moore MD Preoperative Diagnoses: Peritonitis; perforated viscus; multiple myeloma, cancer, on chemotherapy. Postoperative Diagnoses: Perforated diverticulitis, intraabdominal abscess, ventral hernia. Procedures: 1.Emergent exploratory laparotomy. 2.Sigmoid bowel resection. 3.End-colostomy. 4.Evacuation of intraabdominal abscess. 5.Repair of ventral hernia about 3 cm. Estimated Blood Loss: Less than 100 cc. Specimen: Perforated sigmoid colon. Findings: The patient has perforated sigmoid colon with intraabdominal abscess involving the entire abdomen, multiple fibrin present in all small bowel and large bowel loops. Anesthesia: General. Complications: None. Drain: MILLY drain x2. Indications: This is the case of a 68-year-old patient who comes to us with multiple medical problem s this morning from the oncology service after chemotherapy with imbalance of electrolytes, found to have in ER to have a perforated viscus. I was called emergently, taken to the surgery. The etiology of that is unknown. Did have fluid levels and collections in the abdomen. The patient stated that he always has some discomfort, so he is not sure exactly when this started and just he fell sick toda y, so that is why he came to the ER. The benefits, alternatives, and risks of emergent laparotomy, p ossible bowel resection, possible ostomy were fully explained, which include, but not limited to infe ction, bleeding, damage to adjacent structures, anesthesia complication, abscess, LA, and even . He also understands this may not relieve the symptoms. He might need more than one surgical interv ention. He did present even a high risk. He just received chemotherapy, so has also high risk for u ncontrolled infection. He understood his options. He still wanted to go for surgery, so the person in the OR was emergently called. Description Of Procedure: The patient was brought to the operating room, placed in supine position. Anesthesia was done without complication. Abdominal area was prepped and draped in sterile fashion. A time-out was called. Midline incision was made. Once we got incision, we had foul-smelling flui d coming from the abdomen. A lot of fibrin present in all small bowel and large bowel. When we had profuse irrigation of several liters, we were able to identify a perforated diverticulitis. So, we m obilized the left colon through white line of Toldt. We preserved the ureters. I obtained proximal and distal control around the perforation. Then, transected the bowel with a ALEXANDRA 80 proximal and dis maryam making sure once again, the ureters were protected. The mesentery was a dissected once again pro tecting the ureters and the specimen was sent to the pathologist. At that moment, we decided to crea te a colostomy so we could pick a space in the abdomen where we can put through the mobilized proxima l colon. We did profuse irrigation of the abdomen with several liters until clear. We cleaned the s mall bowel and large bowel. We did not see any other pathology at this moment, evacuated the hematom a. I have to mention on the entrance of his abdomen, we noticed a ventral hernia that was also repai red at the end. We verified NG tube to be in place. Once again, the profuse irrigation was obtained and then after that proceeded to MILLY #10 in the lower abdomen and then proceeded to verify for any bl eeding. Once we have no bleeding, no bowel leak and then at that moment, I proceeded to close the fa scia with #2 nylon in a running fashion. We are going to leave the midline to be closed by secondary intentions, so we packed the area and covered it. Then, after that we proceeded to [place] the colost leilani and mature it and we did chromic at 3, 9, 6, and 12 o'clock and then a 3-0 chromic in between tho se multiple times. Ostomy seems to be nice and smooth and pink. We visualized the colostomy and see ms to be Intact. Midline was covered with wet-to-dry dressing. The patient tolerated the procedure well. Sp onge count and instrument count was correct. The patient was sent to recovery room in critical condition. Patient will go to the ICU. HM/MODL Voice ID: [id number] Report ID: [id number]
[2023-12-20 13:07] LABS: Hematocrit 32.1 % (39.6-49.0); Hemoglobin 10.4 g/dL (13.6-17.9); Lymphocytes % 4.8 % (15.3-44.8); MCH 30.1 pg (27.0-35.0); MCHC 32.4 g/dL (32.0-36.0); MCV 92.8 fL (80-100); MPV 13.3 fL (7.6-11.3); Neutrophils % 78.7 % (41.7-73.7); RBC Red Blood Cell Count 3.46 M/uL (4.33-5.43); Red Cell Distribution Width 16.8 % (12.1-15.2)
[2023-12-20 13:08] LABS: Absolute Eosinophils 0.1 K/uL (0-0.5); Absolute Lymphocytes (CBC) 0.1 K/uL (0.7-4.9); Absolute Monocytes 0.4 K/uL (0.1-1.3); Absolute Neutrophil 2.4 K/uL (1.8-8.0); Basophils % 0.1 % (0-1.3); Eosinophils % 2.6 % (0-4.4); Monocytes % 13.8 % (3.3-12.3)
[2023-12-20 13:09] LABS: Platelets 40 thou/uL (152-406)
--- NOTE | 2023-12-20 13:26 | P.CNS ---
Date of Consult: 12/20/23 Reason for Consult: bowel perforation Chief Complaint: Perforated bowel History of Present Illness: 68-year-old male with newly diagnosed multiple myeloma and currently on chemotherapy. Presented to the ER after his oncologist urged him to present to the ER due to electrolyte abnormalities. Patient was found to have severe hypocalcemia, hypokalemia and hyponatremia. Patient reportedly has been weak over the past few weeks. His appetite has been poor as well. Additionally, patient has been having abdominal pain especially in the epigastric area. CT abdomen pelvis revealed perforated small bowel. General surgery was urgently consulted and patient was taken to the OR. Allergies No Known Allergies Allergy (Verified 10/23/23 10:14) Home medications list reviewed: Yes - Past Medical/Surgical History Diabetic: Yes -: Multiple Myeloma - Social History Alcohol use: No CD- Drugs: No Caffeine use: Yes Place of Residence: Home Physical Examination Temp Pulse Resp BP Pulse Ox 98.9 F 88 16 106/64 100 12/20/23 12:00 12/20/23 13:00 12/20/23 13:00 12/20/23 13:00 12/20/23 13:00 Patient off unit - laborer yard Laboratory, Microbiology and Imaging Data reviewed Conclusions/Impression: Problem List Perforated Diverticulitis Intra-Abdominal Abscess Ventral Hernia NSTEMI Hypotension Acute Kidney Injury Multiple Myeloma, on chemo Perforated Diverticulitis Intra-Abdominal Abscess - CT abdomen pelvis 12/18: "Extensive intraperitoneal free air and moderate mostly free fluid in the right flank and pelvis. Areas of poorly loculated fluid in the left aspect of the mesenteric, with adjacent mild fat stranding, may suggest adjacent small bowel perforation, although the site of perforation remains indeterminate. Numerous lucent osseous lesions, concerning for metastatic disease. Healing pathologic fracture of the anterior left ninth rib. Cholelithiasis. Trace layering left pleural effusion. " - OR 12/[address] Moore, found to have Perforated diverticulitis, intrabdominal abscess, ventral hernia - procedures: Emergent exploratory laparotomy, Sigmoid bowel resection, End colostomy, and Evacuation of intrabdominal abscess - blood cultures 12/18: pending - Abdominal wound culture 12/18: pending - Currently on Zosyn Recommendations - Started on empiric Meropenem and Vancomycin. - follow up with blood and wound culture results. will adjust antibiotics as appropriate. - renally dose medications - electrolyte replacement per protocol - surgical site care per Dr. Moore - supportive care Case discussed with Senait Bellamy
[2023-12-20 13:36] LABS: Blood Morphology Comment NOTED (NOT SEEN); Platelet Estimate DECR; White Blood Cell Scan OK (OK)
[2023-12-20] MEDS: Meropenem 1,000 MG in NA CHLORIDE 0.9% 100 ML IV SCH (14:08)
[2023-12-20] MEDS: VANCOMYCIN 1.75 GM in NA CHLORIDE 0.9% 500 ML IVPB SCH (14:08)
[2023-12-20 15:18] LABS: Anion Gap 15.6 mEq/L (5.0-15.0); Potassium 3.6 mEq/L (3.5-5.1)
--- NOTE | 2023-12-20 15:40 | EKG ---
Test Date: 2023-12-20 Test Time: 06:12:35 Audio Visual [employer]ids Director: GEORGIANA MEASUREMENT RESULTS: Intervals: Rate: 89 HI: 180 QRSD: 84 QT: 398 QTc: 484 [place]: P: 34 HI: 180 QRS: -11 T: 5 INTERPRETIVE STATEMENTS: Sinus rhythm with premature atrial complexes with aberrant conduction ST elevation, consider anterolateral injury or acute infarct ST elevation, consider inferior injury or acute infarct Prolonged QT ACUTE IN Abnormal ECG Compared to ECG 12/19/2023 18:05:51 Atrial premature complex(es) now present Aberrant conduction of supraventricular beat(s) now present ST (T wave) deviation now present Myocardial infarct finding now present Left-axis deviation no longer present Electronically Signed On 12-20-23 15:40:06 CDT by Jaskaran Frederick
--- NOTE | 2023-12-20 15:43 | EKG ---
Test Date: 2023-12-19 Test Time: 18:05:51 Staff Occupational Therapist: DASHA MEASUREMENT RESULTS: Intervals: Rate: 87 TX: 160 QRSD: 98 QT: 452 QTc: 543 [place]: P: 55 TX: 160 QRS: -63 T: 50 INTERPRETIVE STATEMENTS: Normal sinus rhythm Left axis deviation Prolonged QT Abnormal ECG No previous ECG available for comparison Electronically Signed On 12-20-23 15:40:53 CDT by Jaskaran Frederick
--- NOTE | 2023-12-20 15:57 | P.CNS ---
Date of Consult: 12/20/23 Chief Complaint: Perforated bowel History of Present Illness: Patient is s/p open lapratomy for bowel perforation, started having chest pain, wide complex tachycardia then bradycardia, EKG shown ST elevation anterolateral leads so patient was taken emergently to [facility]. Allergies No Known Allergies Allergy (Verified 10/23/23 10:14) Home Medications: Lenalidomide [Revlimid] 25 mg PO DAILY 12/20/23 Olmesartan Medoxomil [Benicar] 20 mg PO DAILY 12/20/23 RX: Aspirin 81 mg PO DAILY 12/20/23 RX: Simvastatin 20 mg PO DAILY 12/20/23 RX: hydroCHLOROthiazide [Hydrochlorothiazide] 25 mg PO DAILY 12/20/23 Vitamin D [Drisdol] 50 mcg PO DAILY 12/20/23 Vitamin E (Dl,Tocopheryl Acet) [Vitamin E] 180 mg PO DAILY 12/20/23 dexAMETHasone [Hemady] 20 mg PO DAILY 12/20/23 - Past Medical/Surgical History Diabetic: Yes -: Multiple Myeloma - Social History Alcohol use: No CD- Drugs: No Caffeine use: Yes Place of Residence: Home Review of Systems 10-point ROS is otherwise unremarkable Physical Examination Temp Pulse Resp BP Pulse Ox 98.9 F 92 H 20 105/61 100 12/20/23 12:00 12/20/23 15:15 12/20/23 15:15 12/20/23 15:15 12/20/23 15:15 General: Alert, In no apparent distress HEENT: Atraumatic, PERRLA, Mucous membr. moist/pink, EOMI, Sclerae nonicteric Neck: Supple, 2+ carotid pulse no bruit, No LAD, Without JVD or thyroid abnormality Respiratory: Clear to auscultation bilaterally, Normal air movement Cardiovascular: Regular rate/rhythm, Normal S1 S2 Musculoskeletal: No tenderness Integumentary: No rashes Neurological: Normal gait, Normal speech, Normal tone, Normal affect Lymphatics: No axilla or inguinal lymphadenopathy Laboratory Data (last 24 hrs) 12/19/23 12/19/23 12/19/23 18:35 18:14 18:10 WBC Hgb Hct Plt Count PT 13.0 H INR 1.19 APTT 21.8 L Sodium Cancelled 127 L Potassium Cancelled 3.0 L BUN Cancelled 73 H Creatinine Cancelled 2.84 H Glucose Cancelled 288 H Magnesium 2.5 H Total Bilirubin Cancelled AST Cancelled ALT Cancelled Alkaline Phosphatase Cancelled 12/19/23 18:10 WBC 6.70 Hgb 13.3 L Hct 40.6 Plt Count 85 L PT INR APTT Sodium Potassium BUN Creatinine Glucose Magnesium Total Bilirubin AST ALT Alkaline Phosphatase - Problems (1) STEMI (ST elevation myocardial infarction) Current Visit: Yes Status: Acute Plan: Patient developed VT and ST elevation OK after Lapratomy, EKG shown ST elevation anterolateral leads so was taken emergently to [facility] and multiple stents were placed. ASA 81 mg daily Brilinta 90 mg po BID Lipitor 40 mg daily (2) Shock Current Visit: Yes Status: Acute Plan: most likely secondary to recent lapratomy and peritonitis, continue vasopressors support for MAP > 65 mmHg appreciate surgical team input. please get Echo (3) Perforated bowel Current Visit: Yes Status: Acute Plan: appreciate surgical team input and follow up.
[2023-12-20] MEDS: CALCIUM GLUC 10% INJ 9.3 MEQ in NA CHLORIDE 0.9% 100 ML IV ONE (16:06)
--- NOTE | 2023-12-20 16:06 | P.CNS ---
Date of Consult: 12/20/23 Reason for Consult: Hypovolemia shock Chief Complaint: Perforated bowel History of Present Illness: Patient is 68 years of age admitted with that ball perforations status post colostomy also developed the STEMI postop and had to undergo three emergent stents patient is currently on leave a fed alert responsive Allergies No Known Allergies Allergy (Verified 10/23/23 10:14) Home Medications: Aspirin 81 mg PO DAILY 12/20/23 Lenalidomide [Revlimid] 25 mg PO DAILY 12/20/23 Olmesartan Medoxomil [Benicar] 20 mg PO DAILY 12/20/23 Simvastatin 20 mg PO DAILY 12/20/23 Vitamin D [Drisdol] 50 mcg PO DAILY 12/20/23 Vitamin E (Dl,Tocopheryl Acet) [Vitamin E] 180 mg PO DAILY 12/20/23 dexAMETHasone [Hemady] 20 mg PO DAILY 12/20/23 hydroCHLOROthiazide [Hydrochlorothiazide] 25 mg PO DAILY 12/20/23 - Past Medical/Surgical History Diabetic: Yes -: Multiple Myeloma - Social History Alcohol use: No CD- Drugs: No Caffeine use: Yes Place of Residence: Home Review of Systems 10-point ROS is otherwise unremarkable General: Weakness Gastrointestinal: Abdominal Pain Physical Examination Temp Pulse Resp BP Pulse Ox 98.9 F 92 H 20 105/61 100 12/20/23 12:00 12/20/23 15:15 12/20/23 15:15 12/20/23 15:15 12/20/23 15:15 General: Alert, In no apparent distress, Oriented x3 Neck: Supple Respiratory: Clear to auscultation bilaterally Cardiovascular: No edema, Regular rate/rhythm, Normal S1 S2 Musculoskeletal: No clubbing, No swelling Integumentary: No rashes, No breakdown Laboratory Data (last 24 hrs) 12/19/23 12/19/23 12/19/23 18:35 18:14 18:10 WBC Hgb Hct Plt Count PT 13.0 H INR 1.19 APTT 21.8 L Sodium Cancelled 127 L Potassium Cancelled 3.0 L BUN Cancelled 73 H Creatinine Cancelled 2.84 H Glucose Cancelled 288 H Magnesium 2.5 H Total Bilirubin Cancelled AST Cancelled ALT Cancelled Alkaline Phosphatase Cancelled 12/19/23 18:10 WBC 6.70 Hgb 13.3 L Hct 40.6 Plt Count 85 L PT INR APTT Sodium Potassium BUN Creatinine Glucose Magnesium Total Bilirubin AST ALT Alkaline Phosphatase - Problems (1) Shock Current Visit: Yes Status: Acute Plan: Patient is 68 years of age admitted with bowel perforation status post laparotomy with a colostomy postoperatively patient developed a STEMI and and had to undergo three stents. Is currently on leave of Fed alert responsive denies any dyspnea. Oxygenation is satisfactory labs reviewed/Currently on Merem and Vanc IV Fluid bolus/Non specific changes on /cxry [id number] Procedures: 1. Emergent exploratory laparotomy. 2. Sigmoid bowel resection. 3. End-colostomy. 4. Evacuation of intraabdominal abscess. 5. Repair of ventral hernia about 3 cm.
--- NOTE | 2023-12-20 16:18 | RAD REPORT ---
EXAM DESCRIPTION: RAD - Abdomen 1 View (KUB) - 12/20/2023 1:56 am CLINICAL HISTORY: Placement of NGT/OGT. Post Insertion. COMPARISON: None. TECHNIQUE: XR ABDOMEN 1 VIEW (KUB) 12/20/2023 1:16 AM CDT FINDINGS: Bowel gas pattern is nonspecific. There are no abnormal radiopaque foreign bodies or abnor mal calcifications. Osseous structures are grossly unremarkable. NG tube tip is in the distal stomach . There are postoperative changes of the pelvis. IMPRESSION: NG tube tip in stomach. Electronically signed by: Caesar Guidry MD 12/20/2023 02:54 AM CDT RP Due to temporary technical issues with the PACS/Fluency reporting system, reports are being signed by the in house radiologists without review as a courtesy to insure prompt reporting. The interpreting radiologist is fully responsible for the content of the report.
[2023-12-20] MEDS: CALCIUM GLUCONATE 1 GM IVPB 2 GM/100 ML BAG IV ONE (18:04)
[2023-12-20 18:46] LABS: Absolute Eosinophils 0.1 K/uL (0-0.5); Absolute Lymphocytes (CBC) 0.1 K/uL (0.7-4.9); Absolute Monocytes 0.5 K/uL (0.1-1.3); Absolute Neutrophil 4.2 K/uL (1.8-8.0); Basophils % 0.1 % (0-1.3); Eosinophils % 2.2 % (0-4.4); Hemoglobin 10.2 g/dL (13.6-17.9); MCH 30.5 pg (27.0-35.0); MCHC 32.9 g/dL (32.0-36.0); MCV 92.6 fL (80-100); MPV 13.1 fL (7.6-11.3); Monocytes % 10.2 % (3.3-12.3); Neutrophils % 85.5 % (41.7-73.7); Nucleated Red Blood Cells % 0.2 % (0-0); Platelets 45 thou/uL (152-406); RBC Red Blood Cell Count 3.35 M/uL (4.33-5.43); Red Cell Distribution Width 16.5 % (12.1-15.2)
--- NOTE | 2023-12-20 19:06 | PN ---
Date of Progress Note: 12/20/2023 Reason For Service: Perforated diverticulitis with intraabdominal abscess. Sepsis. Subjective: This is the case of a 68-year-old patient who came to us with sepsis, intraabdominal abs cess. He is on chemotherapy for metastatic cancer disease. Yesterday, he received his chemotherapy in the afternoon, sent to the ER, then found to have free air, taken emergently to surgery just fincharu diaz this morning, sent to the ICU. After that, this morning, they find out the patient also is havin g signs of HI. Cardiology came and did workup, did stents. He is still in critical condition since the beginning. The family understand how critical he is, and understand also his prognosis. From th e surgical standpoint, they have to anticoagulate this patient due to the stents placed and the HI an d even though we just finished the surgery a few hours ago, but we explained to the personnel and the staff and the MDs that this obviously will create some other complications that may be hematomas and bleeding. We have drains in that area. We have a colostomy that looks viable today. Objective: Abdomen: Intact surgical site. Bowel sounds negative. Extremities: Good capillary refill. Blood Work: WBC count of 3.1 with hemoglobin of 10.4 and platelets of 40. INR of 1.19, glucose 253, potassium 3.4. Plan: Continue in ICU, Critical Care, Cardiology, Medicine, and Surgery. NPO. Wet-to-dry dressing midline. HM/MODL Voice ID: [id number] Report ID: [id number]
[2023-12-20 19:37] LABS: Anion Gap 21.6 mEq/L (5.0-15.0); Potassium 3.6 mEq/L (3.5-5.1)
[2023-12-20] MEDS: TICAGRELOR 90 MG TABLET PO SCH (20:21)
[2023-12-20 21:55] LABS: Blood Morphology Comment NOT SEEN (NOT SEEN); Platelet Estimate DECR; White Blood Cell Scan OK (OK)
[2023-12-20 22:41] LABS: Anion Gap 20.6 mEq/L (5.0-15.0); Potassium 3.6 mEq/L (3.5-5.1)
[2023-12-20] MEDS ORDERED: CALCIUM GLUC 10% INJ 4.65 MEQ in NA CHLORIDE 0.9% 100 ML IV ONE (23:00)
[2023-12-20] MEDS: NA CHLORIDE 0.9% 250 ML ONE (23:59)
--- NOTE | 2023-12-21 02:12 | OP ---
Date of Procedure: 12/20/2023 Surgeon: Jaskaran Frederick Procedures Performed: 1.Left heart catheterization. 2.Selective coronary angiogram. 3.PCI of the LAD with Synergy 2.5 x 38 mm drug-eluting stent. 4.PCI of the diagonal with 2.25 x 20 mm drug-eluting stent. 5.PCI of the OM1 with Synergy 2.5 x 20 mm drug-eluting stent. Indication For Procedure: ST-elevation RI after having an open laparotomy, shock. Complications: None. Access: 1.Right IJ central line secured in place. 2.Right common femoral artery 6-Burmese, closed by an Angio-Seal. Sedation: Sedation time is 90 minutes with Versed and fentanyl. Description Of Procedure: After risks, benefits, and alternatives were explained to the patient and family, the patient was brought back to the energy systems laboratory director in critical condition. The patient signed infor med consent and prepped and draped in sterile fashion. Right internal jugular artery access was obta ined using micropuncture technique. A central line sheath was inserted and secured in place. Next, right common femoral artery 6-Burmese ultrasound-guided micropuncture technique was obtained. Next, J R4 catheter was advanced over a J wire. Right coronary angiogram was performed that was later exchan ged for an EBU 3.5 mm guide into the left coronary system. ACT was administered. Heparin was therap eutic, so we inserted a run-through wire into the LAD and another run-through wire into the diagonal. We pre-dilated the diagonal lesions with a 2.0 mm balloon and then we pre-dilated the LAD lesions w ith a 2.5 mm balloon. Next, we placed 2.25 mm x 20 mm drug-eluting stent into the diagonal back into the LAD that was later crashed and we recrossed and dilated the diagonal stent and then after that, we placed a 2.5 x 38 mm drug-eluting stent and closed the LAD that was postdilated with an NC 3.0 mm balloon. The LAD crossed into the diagonal and serial predilatation was done and then final kissing balloon inflation was done with 2.5 NC into the diagonal and 2.75 into the LAD. Final angiogram show s OLESYA-3 flow. Next, we passed the run-through wire into the OM1 lesion. The Synergy 2.[address] ug-eluting stent was placed to close the lesion, postdilated with a stent balloon. Final angiogram s hows OLESYA-3 flow in all arteries. So, wires were removed. Guide was removed over a J-wire and sheat h was removed and Angio-Seal applied. The patient was moved back to the ICU in stable condition. Findings: 1.Left main is normal. 2.LAD, proximal mild LI, mid diffuse hazy 80% disease. PCI done with Synergy 2.5 x 38 mm drug-eluti ng stent, mid to distal mild LI. 3.Diagonal at the origin of the LAD disease that has proximal to mid diffuse 80% to 90% disease. PC I done with 2.25 x 20 mm drug-eluting stent in a kissing fashion with LAD stent. 4.Left circ, proximal mild LI, continues with large OM1 that has proximal 90% disease with PCI done with Synergy 2.5 x 20 mm drug-eluting stent. 5.RCA, large, dominant, diffuse mild LI, RPDA mild LI, RPLV gives 2 branches, one of them has proxim al 80% disease. Assessment: 1.Severe mid LAD disease and diagonal disease, bifurcation stenting was done with Synergy 2.5 x 38 m m drug-eluting stent into LAD and Synergy 2.25 x 20 mm drug-eluting stent into the diagonal. 2.Significant mid circ/proximal OM1 disease, PCI done with Synergy 2.5 x 20 mm drug-eluting stent. 3.Severe proximal RPLV disease, medical management for now until the patient's condition stabilize. Plan: 1.Aspirin 325 mg x1 was given in the energy systems laboratory director, continue aspirin 81 mg daily. 2.Brilinta 180 mg p.o. x1 was given in the energy systems laboratory director, continue Brilinta 90 mg p.o. b.i.d. 3.Continue aggressive medical treatment for CAD. LOGAN/PETER Voice ID: [id number] Report ID: [id number]
[2023-12-21 02:26] LABS: MPV 11.6 fL (7.6-11.3); Platelet Distribution Width 16.7 fL (9.0-17.0); Platelets 70 thou/uL (152-406)
[2023-12-21 04:54] LABS: Absolute Basophils 0.1 K/uL (0-0.5); Absolute Eosinophils 0.1 K/uL (0-0.5); Absolute Lymphocytes (CBC) 0.2 K/uL (0.7-4.9); Absolute Monocytes 1.3 K/uL (0.1-1.3); Absolute Neutrophil 5.1 K/uL (1.8-8.0); Basophils % 1.1 % (0-1.3); Eosinophils % 1.6 % (0-4.4); Hematocrit 26.8 % (39.6-49.0); Hemoglobin 8.7 g/dL (13.6-17.9); Lymphocytes % 3.2 % (15.3-44.8); MCH 30.3 pg (27.0-35.0); MCHC 32.5 g/dL (32.0-36.0); MCV 93.3 fL (80-100); MPV 11.3 fL (7.6-11.3); Monocytes % 19.1 % (3.3-12.3); Nucleated Red Blood Cells % 0.1 % (0-0); Platelets 65 thou/uL (152-406); RBC Red Blood Cell Count 2.87 M/uL (4.33-5.43); Red Cell Distribution Width 16.7 % (12.1-15.2)
[2023-12-21 05:19] LABS: Anion Gap 17.3 mEq/L (5.0-15.0); Magnesium 2.1 mg/dL (1.6-2.4); Phosphorus 3.6 mg/dL (2.5-4.9); Potassium 3.3 mEq/L (3.5-5.1)
[2023-12-21] MEDS ORDERED: CALCIUM GLUC 10% INJ 9.3 MEQ in NA CHLORIDE 0.9% 100 ML IV ONE (06:00)
[2023-12-21] MEDS: CALCIUM GLUCONATE 1 GM IVPB 1 GM/50 ML BAG IV SCH (06:04)
[2023-12-21] MEDS: NA CHLORIDE 0.9% 100 ML ONE (06:04)
[2023-12-21] MEDS: KCL 20 MEQ/100 mL IVPB 20 MEQ/100 ML BAG IV SCH (06:04)
--- NOTE | 2023-12-21 06:50 | P.PN ---
Date of Service: 12/21/23 Subjective: s/p LHC yesterday and had 3 stents placed MILLY drain with minimal serosanguinous output small amount of blood clots in colostomy with some soft stool remains on levophed. BP in 110-120s ROS: 10 point ROS as noted above, otherwise negative Physical Exam: GEN: Alert, oriented, NAD HEENT: Normal conjunctiva, sclera anicteric, NGT in place CV: Regular rate and rhythm, no edema Pulm: Nonlabored respirations on 2L NC, diminished ABD: epigastric tederness, dressing in placed packed wet to dry with blood on dressing, colostomy bag in place with blood-tinged stool output Neuro: Normal speech, normal affect NGT in place Sol in place MILLY drain in place colostomy bag in place vitals reviewed Problem List: Perforated diverticulitis, s/p sigmoid bowel resection with end colostomy (12/19) intraabdominal abscess s/p evacuation (12/19) Ventral hernia 3cm s/p repair (12/19) Hypotension acute blood loss anemia STEMI Severe CAD, s/p PCI x3 (12/19) ARSALAN Hyponatremia, Hypokalemia, Hypocalcemia Multiple myeloma on chemotherapy Generalized weakness Thrombocytopenia Perforated diverticulitis, s/p sigmoid bowel resection with end colostomy (12/19) intraabdominal abscess s/p evacuation (12/19) Ventral hernia 3cm s/p repair (12/19) Hypotension Came to ER per patients oncologist due to outpatient labs with electrolyte abnormalities. Presents with epigastric abdominal pain, generalized weakness, poor PO intake over the past weeks. CT abdomen (12/19): Extensive intraperitoneal free air and moderate mostly free fluid in the right flank and pelvis. Areas of poorly loculated fluid in the left aspect of the mesenteric, with adjacent mild fat stranding, may suggest adjacent small bowel perforation, although the site of perforation remains indeterminate. Numerous lucent osseous lesions, concerning for metastatic disease. Healing pathologic fracture of the anterior left ninth rib Moderate gallbladder distention with numerous small layering calculi. Trace layering left pleural effusion Recent abdominal ultrasound (12/15) fatty liver, gallbladder distention with sludge, benign 3.1 cm cyst left kidney Dr. Moore, general surgery consulted Taken to OR for emergent ex lap, found to have perforated diverticulitis, intrabdominal abscess, ventral hernia s/p sigmoid bowel resection with end colostomy, evacuation of intraabdominal abscess, and ventral hernia repair (12/19) NGT, MILLY drain in place wound care per surgery IV Protonix BID zosyn/cefoxitin (12/19-12/19) switched to merrem / vanc (12/19-) ID following afebrile, no leukocytosis follow blood and wound cultures PRN analgesics / antiemetics acute blood loss anemia pt with unknown IgG antibody currently on chemo ordered irradiated PRBCs, hb downtrending, seems to be slowing oozing on exam slowing and levophed weaning down STEMI Severe CAD, s/p PCI x3 (12/19) Patient noted to be in vtach HR 140s 12/19 morning and felt like his heart was racing. +chest pain. BP dropped to 43/38 at the time - MAP 43 levophed adjusted EKG with ST elevations Cardiology is following s/p LHC found to have Severe mid LAD disease (~80%) and diagonal disease (80- 90%), s/p PCI to LAD and diagonal Significant mid circ/proximal OM1 disease (90%), s/p PCI Severe proximal RPLV disease (~80%), continue medical management for now until the patient's condition stabilize. obtain echo continue aspirin 81 mg, brilinta continue close monitoring in ICU ARSALAN Hyponatremia, Hypokalemia, Hypocalcemia suspect prerenal ARSALAN secondary to poor intake. Family reports patients been feeling weak past few weeks and has had very poor appetite/intake. Nephrology consulted Continue IV fluids on levophed drip continue to monitor renal function Monitor electrolytes. replete as needed Multiple myeloma on chemotherapy Generalized weakness Thrombocytopenia Reports recent diagnosis of multiple myeloma. On chemotherapy - last received chemo treatment 12/18 am. weakness and thrombocytopenia likely secondary to cancer / chemo PT/OT/Dietitian consult s/p 1 platelet transfusion overnight 12/19-12/20 Code: Full Dispo: continue ICU level of care
[2023-12-21] MEDS: ASPIRIN 81 MG CHEWABLE TABLET PO SCH (08:45)
--- NOTE | 2023-12-21 11:02 | P.PN ---
Subjective Date of Service: 12/21/23 Chief Complaint: Perforated bowel Subjective: No new changes Review of Systems 10-point ROS is otherwise unremarkable Physical Examination - Vital Signs Temperature: 97.8 F Blood Pressure: 98/76 Pulse: 95 Respirations: 26 Pulse Ox (%): 99 - Physical Exam General: Alert, In no apparent distress HEENT: Atraumatic, PERRLA, EOMI Neck: Supple, JVD not distended Respiratory: Clear to auscultation bilaterally, Normal air movement Cardiovascular: Regular rate/rhythm, Normal S1 S2 Musculoskeletal: No tenderness Integumentary: No rashes Neurological: Normal speech, Normal tone, Normal affect Lymphatics: No axilla or inguinal lymphadenopathy - Studies Medications List Reviewed: Yes Assessment And Plan - Current Problems (Diagnosis) (1) STEMI (ST elevation myocardial infarction) Current Visit: Yes Status: Acute Plan: Patient developed VT and ST elevation OR after Lapratomy, EKG shown ST elevation anterolateral leads so was taken emergently to seed laboratory technician and multiple stents were placed. ASA 81 mg daily Brilinta 90 mg po BID Lipitor 40 mg daily (2) Shock Current Visit: Yes Status: Acute Plan: most likely secondary to recent lapratomy and peritonitis and bleeding, continue vasopressors support for MAP > 65 mmHg appreciate surgical team input. please get Echo (3) Perforated bowel Current Visit: Yes Status: Acute Plan: appreciate surgical team input and follow up.
[2023-12-21 11:59] LABS: Hematocrit 24.7 % (39.6-49.0); MCH 29.9 pg (27.0-35.0); MCHC 32.2 g/dL (32.0-36.0); MPV 12.2 fL (7.6-11.3); Platelets 52 thou/uL (152-406); RBC Red Blood Cell Count 2.66 M/uL (4.33-5.43); Red Cell Distribution Width 16.7 % (12.1-15.2)
--- NOTE | 2023-12-21 15:09 | PN ---
Date of Progress Note: 12/21/2023 Diagnoses: Metastatic cancer, on chemotherapy, perforated diverticulitis with intraabdominal abscess , large contamination of the abdomen with stools in the colon due to large perforation. The patient also is septic, heart attack, morbid obesity, diabetes. Objective: Vital Signs: Today showed blood pressure about 98/53. Respiratory rate about 17. [place] rature is 97.6. General: The patient is awake, he responds, always keeps high spirits. He understands how many issu es he has at this moment, how many battles he is fighting. Chest: Clear. Abdomen: Soft and depressible. Ostomy looks viable. Obviously the patient has to be on anticoagula tion, so you are going to see more oozing from the ostomy site, but the ostomy itself looks good with no significant active GI bleed. Mid line is intact. Obviously we have packing there. So the skin is open. The MILLY drains, no active bleeding coming from them, we have 2 MILLY drains inside the belly. Laboratory Data: Blood work shows a WBC count of 5.5 with hemoglobin of 8 and platelets of 52. Chem istry shows a calcium 6.4, bicarb of 17, potassium 3.3, glucose 340. Plan: Continue resuscitation. This patient may need blood transfusion. Obviously, he did have rece nt surgery and heparin anticoagulation has to be started. As long as we understand this will somehow bring down the hemoglobin even in this case where the platelets are so low. I did not see any signi ficant bleeding right now other than oozing, a little bit from the ostomy and the MILLY drains are putti ng minimal, but we have to keep an eye on that one because that even though it is not large over the days he is going to drop his hemoglobin. Obviously, heparin anticoagulation is important for the res t of the medical issue so after surgery just keep an eye on that and see how we can minimize the blee ding. Other than that, really hoping the best, hopefully he has good attitude, although once again, like I mentioned so many battles at the same time. Continue the antibiotics. HM/MODL Voice ID: [id number] Report ID: [id number]
[2023-12-21 15:10] LABS: PTT, Activated Partial Thromb 24.1 SECONDS (24.3-36.9)
[2023-12-21 15:11] LABS: PT Prothrombin Time 13.1 SECONDS (9.5-12.5); Protime INR 1.2
--- NOTE | 2023-12-21 21:24 | RAD REPORT ---
EXAM DESCRIPTION: RAD - Chest Single View - 12/21/2023 9:10 pm CLINICAL HISTORY: PICC Placement COMPARISON: Chest Single View dated 12/20/2023; Abdomen 1 View (KUB) dated 12/20/2023; Chest Single Vi ew dated 12/19/2023; Abdomen Pelvis W Contrast dated 12/19/2023 FINDINGS: Lines: Right subclavian approach PICC with tip overlying the distal SVC. Right IJ approach central line with tip at the lower right atrium. Enteric tube below the diaphragm terminating in the stomach. Lungs: No evidence of edema or pneumonia. Pleural: No significant pleural effusions or pneumothorax. Cardiac: The heart size is within normal limits. Mediastinum: Within normal limits. Bones: No acute fractures. Other: None IMPRESSION: The PICC terminates overlying the the distal SVC in satisfactory position. Lungs are charles ar.
[2023-12-21] MEDS: NA CHLORIDE 0.9% 250 ML ONE (22:28)
[2023-12-22 06:32] LABS: Albumin 1.6 g/dL (3.4-5.0); Albumin/Globulin Ratio 0.5 (1.1-1.8); Bilirubin Total 0.4 mg/dL (0.2-1.0); Globulin 3.2 g/dL (2.3-3.5); Phosphorus 2.5 mg/dL (2.5-4.9); Protein, Total 4.8 g/dL (6.4-8.2)
[2023-12-22 06:33] LABS: Absolute Eosinophils 0.2 K/uL (0-0.5); Absolute Lymphocytes (CBC) 0.2 K/uL (0.7-4.9); Absolute Monocytes 0.8 K/uL (0.1-1.3); Basophils % 0.2 % (0-1.3); Eosinophils % 3.7 % (0-4.4); Hematocrit 24.8 % (39.6-49.0); Hemoglobin 8.3 g/dL (13.6-17.9); Lymphocytes % 4.3 % (15.3-44.8); MCH 30.3 pg (27.0-35.0); MCHC 33.2 g/dL (32.0-36.0); MCV 91.2 fL (80-100); MPV 11.7 fL (7.6-11.3); Monocytes % 18.9 % (3.3-12.3); Neutrophils % 72.9 % (41.7-73.7); Nucleated Red Blood Cells % 0.1 % (0-0); Platelets 24 thou/uL (152-406); RBC Red Blood Cell Count 2.72 M/uL (4.33-5.43); Red Cell Distribution Width 17.2 % (12.1-15.2)
[2023-12-22] MEDS: NA CHLORIDE 0.9% 100 ML ONE (07:02)
[2023-12-22] MEDS: KCL 20 MEQ/100 mL IVPB 20 MEQ/100 ML BAG IV SCH ×2 (07:03→19:31)
[2023-12-22] MEDS: CALCIUM GLUCONATE 1 GM IVPB 1 GM/50 ML BAG IV ONE (08:23)
--- NOTE | 2023-12-22 08:41 | P.PN ---
Date of Service: 12/22/23 Subjective: minimal bloody output from ostomy/MILLY drain overnight reported off levophed since 6am Awake/alert. Responding to questions appropriately NGT remains in place hungry ROS: 10 point ROS as noted above, otherwise negative Physical Exam: GEN: Alert, oriented, NAD HEENT: Normal conjunctiva, sclera anicteric, NGT in place CV: Regular rate and rhythm, trace pedal edema Pulm: Nonlabored respirations on 2L NC, diminished ABD: epigastric tederness, dressing in placed packed wet to dryg, colostomy bag in place with some bloody output Neuro: Normal speech, normal affect NGT in place Sol in place MILLY drain x2 in place colostomy bag in place vitals reviewed Problem List: Perforated diverticulitis, s/p sigmoid bowel resection with end colostomy (12/19) intraabdominal abscess s/p evacuation (12/19) Ventral hernia 3cm s/p repair (12/19) Shock - multifactorial - sepsis/hypovolemic ARSALAN acute blood loss anemia STEMI, Severe CAD, s/p PCI x3 (12/19) Hyponatremia, Hypokalemia, Hypocalcemia Multiple myeloma on chemotherapy Generalized weakness Thrombocytopenia Perforated diverticulitis, s/p sigmoid bowel resection with end colostomy (12/19) intraabdominal abscess s/p evacuation (12/19) Ventral hernia 3cm s/p repair (12/19) Shock - multifactorial - sepsis/hypovolemic Came to ER per patients oncologist due to outpatient labs with electrolyte abnormalities. Presents with epigastric abdominal pain, generalized weakness, poor PO intake over the past weeks. CT abdomen (12/19): Extensive intraperitoneal free air and moderate mostly free fluid in the right flank and pelvis. Areas of poorly loculated fluid in the left aspect of the mesenteric, with adjacent mild fat stranding, may suggest adjacent small bowel perforation, although the site of perforation remains indeterminate. Numerous lucent osseous lesions, concerning for metastatic disease. Healing pathologic fracture of the anterior left ninth rib Moderate gallbladder distention with numerous small layering calculi. Trace layering left pleural effusion Recent abdominal ultrasound (12/15) fatty liver, gallbladder distention with sludge, benign 3.1 cm cyst left kidney Dr. Moore, general surgery consulted Taken to OR for emergent ex lap, found to have perforated diverticulitis, intrabdominal abscess, ventral hernia s/p sigmoid bowel resection with end colostomy, evacuation of intraabdominal abscess, and ventral hernia repair (12/19) NGT, MILLY drain x2 in place IV Protonix BID zosyn/cefoxitin (12/19-12/19) switched to merrem / vanc (12/19-) ID following afebrile, no leukocytosis blood cx (12/18): NGTD wound cx (12/18): 1+ GNR prelim PRN analgesics / antiemetics shock likely secondary to hypovolemic and a degree of distributive shock from perforated diverticulitis / sepsis improving start TPN 12/21, adjust IVF acute blood loss anemia pt with unknown IgG antibody - lab report reaction is effect of his MM medication and not true allergy currently on chemo - is immunosupressed s/p 1 unit irradiated PRBCs (12/20) oozing on exam slowing and levophed weaned off earlier this morning Continue to monitor H&H. fibrinogen pending STEMI Severe CAD, s/p PCI x3 (12/19) Patient noted to be in vtach HR 140s 12/19 morning and felt like his heart was racing. +chest pain. BP dropped to 43/38 at the time - MAP 43 levophed adjusted EKG with ST elevations Cardiology is following s/p LHC found to have Severe mid LAD disease (~80%) and diagonal disease (80- 90%), s/p PCI to LAD and diagonal Significant mid circ/proximal OM1 disease (90%), s/p PCI Severe proximal RPLV disease (~80%), continue medical management for now until the patient's condition stabilize. obtain echo continue aspirin 81 mg, brilinta continue close monitoring in ICU ARSALAN Hyponatremia, Hypokalemia, Hypocalcemia suspect prerenal ARSALAN secondary decreased PO intake, hypotension. Family reports patients been feeling weak past few weeks and has had very poor appetite/intake. Nephrology consulted Continue IV fluids on levophed drip continue to monitor renal function Monitor electrolytes. replete as needed Multiple myeloma on chemotherapy Generalized weakness Thrombocytopenia Reports recent diagnosis of multiple myeloma. On chemotherapy - last received chemo treatment 12/18 am. weakness and thrombocytopenia likely secondary to cancer / chemo PT/OT/Dietitian consult s/p 1 platelet transfusion overnight (12/19-12/20) platelets down to 24 (12/21) 1 unit irradiated plt ordered (12/21) fibrinogen pending Code: Full Dispo: continue ICU level of care
--- NOTE | 2023-12-22 13:07 | P.PN ---
Subjective Date of Service: 12/22/23 Chief Complaint: Perforated bowel Subjective: No new changes, No C/O voiced, Tolerating diet, Ambulating, Improving Review of Systems 10-point ROS is otherwise unremarkable Physical Examination - Vital Signs Temperature: 98.6 F Blood Pressure: 124/64 Pulse: 67 Respirations: 15 Pulse Ox (%): 98 - Physical Exam General: Alert, In no apparent distress HEENT: Atraumatic, PERRLA, EOMI Neck: Supple, JVD not distended Respiratory: Clear to auscultation bilaterally, Normal air movement Cardiovascular: Regular rate/rhythm, Normal S1 S2 Gastrointestinal: Normal bowel sounds, No tenderness Musculoskeletal: No tenderness Integumentary: No rashes Neurological: Normal speech, Normal tone, Normal affect Lymphatics: No axilla or inguinal lymphadenopathy - Studies Medications List Reviewed: Yes Assessment And Plan - Current Problems (Diagnosis) (1) STEMI (ST elevation myocardial infarction) Current Visit: Yes Status: Acute Plan: Patient developed VT and ST elevation [place] after Lapratomy, EKG shown ST elevation anterolateral leads so was taken emergently to veterinarian laboratory animal care and multiple stents were placed. ASA 81 mg daily Brilinta 90 mg po BID Lipitor 40 mg daily (2) Shock Current Visit: Yes Status: Acute Plan: most likely secondary to recent lapratomy and peritonitis and bleeding, continue vasopressors support for MAP > 65 mmHg appreciate surgical team input. please get Echo (3) Perforated bowel Current Visit: Yes Status: Acute Plan: appreciate surgical team input and follow up.
[2023-12-22] MEDS: VANCOMYCIN 2 GM in NA CHLORIDE 0.9% 500 ML IVPB SCH (14:05)
[2023-12-22] MEDS: AA 5%/D20W/ELECTROLYTES-TPN 2,000 ML, Lipids 20% 250 ML with MULTIVITAMINS INJ 10 ML IV SCH (17:00)
[2023-12-22 18:17] LABS: Absolute Eosinophils 0.1 K/uL (0-0.5); Absolute Lymphocytes (CBC) 0.1 K/uL (0.7-4.9); Absolute Monocytes 0.8 K/uL (0.1-1.3); Absolute Neutrophil 2.9 K/uL (1.8-8.0); Basophils % 0.3 % (0-1.3); Eosinophils % 3.7 % (0-4.4); Hematocrit 26.8 % (39.6-49.0); Hemoglobin 8.8 g/dL (13.6-17.9); Lymphocytes % 3.2 % (15.3-44.8); MCH 29.2 pg (27.0-35.0); MCHC 32.7 g/dL (32.0-36.0); MCV 89.1 fL (80-100); Monocytes % 19.8 % (3.3-12.3); Nucleated Red Blood Cells % 0.1 % (0-0); RBC Red Blood Cell Count 3.01 M/uL (4.33-5.43); Red Cell Distribution Width 17.2 % (12.1-15.2)
[2023-12-22 18:22] LABS: MPV 8.8 fL (7.6-11.3); Platelets 31 thou/uL (152-406)
[2023-12-22 18:58] LABS: Band Neutrophils 4 % (0-1); Differential Total Cells Count 100; Lymphocytes 5 % (15-42); Segmented Neutrophils 68 % (40-80)
[2023-12-22 18:59] LABS: Anisocytosis SLIGHT; Blood Morphology Comment NOTED (NOT SEEN); Eosinophils 6 % (0-3); Monocytes 17 % (0-10); Platelet Estimate DECR
[2023-12-22] MEDS: POTASSIUM CHLORIDE-0.45% NACL 20 MEQ/1,000 ML BAG IV SCH (19:00)
[2023-12-22] MEDS ORDERED: NACHLORIDE 0.45% 1,000 ML with POTASSIUM CL 40 MEQ IV SCH (19:00)
[2023-12-22] MEDS: Ringers Lactate 1,000 ML IV SCH (19:52)
--- NOTE | 2023-12-22 21:17 | P.PN ---
Subjective Date of Service: 12/22/23 Chief Complaint: Perforated bowel, intrabd abscess, metastatic cancer on chemo, diabetes, [place] Subjective: Improving Review of Systems Respiratory: Shortness of Breath (no) Cardiovascular: Chest Pain (no) Gastrointestinal: Nausea (no), No Distention Genitourinary: Dysuria (no) Physical Examination - Vital Signs Temperature: 97 F Blood Pressure: 131/70 Pulse: 68 Respirations: 19 Pulse Ox (%): 99 - Physical Exam General: Alert, In no apparent distress, Oriented x3 HEENT: Normocephalic, PERRLA Neck: Supple Cardiovascular: Normal pulses Gastrointestinal: Hypoactive, Other (intact midline, MILLY serosanguineous minimal, ostomy viable) Neurological: Normal speech - Studies Medications List Reviewed: Yes Assessment And Plan - Plan INcntive Shani d/c NGT wound care meds with sip of water scd abx
--- NOTE | 2023-12-22 21:51 | PN ---
Date of Progress Note: 12/22/2023 Subjective: The patient was seen and examined in the NICU at bedside. The patient denies any other complaints. He has gotten some IV potassium replacement and repeat potassium is still at 3.2. He is still not able to take p.o. intake. He has an NG tube in place. Physical Examination: Vital Signs: At this time are showing temperature of 98.6, pulse rate of 67, respiratory rate of 18, and blood pressure of 124/64. O2 saturation of 99% on room air. General: He appears in no acute distress. HEENT: Atraumatic head. Lungs: Auscultation of lungs revealed bilateral equal air entry anteriorly. Abdomen: Slightly distended. No bowel sounds were appreciated. Extremities: No evidence of edema. Laboratory Data: At this time are showing sodium of 139, potassium of 3.2, chloride of 108, BUN of 5 8, and creatinine of 2.34. Calcium is at 6.2. He received 1 g of calcium gluconate this morning. L FTs are within normal limits. CBC showing stable hemoglobin, hematocrit, and platelet count. Current Medications: Have been reviewed. Impression: 1.Acute renal failure secondary to combination of contrast-induced nephropathy as well as acute tubu lar necrosis. Nonoliguric and stable renal function despite having contrast exposure on Saturday. 2.Multiple electrolyte abnormalities, including hypokalemia and hypocalcemia. The patient's IV flui ds will be changed to half NS with 20 of potassium chloride and another additional 20 mEq of potassiu m chloride will be repleted IV, and also for the calcium, I have ordered 2 g of calcium gluconate berta ly to be given for the next 3 days. 3.Perforated diverticulitis status post sigmoid bowel resection and end colostomy. The patient will benefit from starting TPN. 4.Ugh-VA-aylvwanye myocardial infarction status post percutaneous coronary intervention 2 days ago. Continue medical management and monitor hemoglobin closely. Plan: Overall, the patient is clinically stable. Continue to address replacement protocols with courtney cium gluconate and potassium chloride. Will benefit from starting TPN. Continue to monitor closely and will follow up. VV/MODL Voice ID: [id number] Report ID: [id number]
[2023-12-23 04:42] LABS: Absolute Eosinophils 0.2 K/uL (0-0.5); Absolute Lymphocytes (CBC) 0.2 K/uL (0.7-4.9); Absolute Monocytes 0.9 K/uL (0.1-1.3); Absolute Neutrophil 2.6 K/uL (1.8-8.0); Basophils % 0.2 % (0-1.3); Eosinophils % 4.6 % (0-4.4); Hemoglobin 8.8 g/dL (13.6-17.9); Lymphocytes % 4.2 % (15.3-44.8); MCH 30.2 pg (27.0-35.0); MCV 88.9 fL (80-100); MPV 9.7 fL (7.6-11.3); Monocytes % 22.4 % (3.3-12.3); Neutrophils % 68.6 % (41.7-73.7); Nucleated Red Blood Cells % 0.3 % (0-0); Platelets 28 thou/uL (152-406); RBC Red Blood Cell Count 2.92 M/uL (4.33-5.43); Red Cell Distribution Width 17.1 % (12.1-15.2)
[2023-12-23 05:12] LABS: AST/SGOT 17 U/L (15-37); Albumin 1.7 g/dL (3.4-5.0); Albumin/Globulin Ratio 0.5 (1.1-1.8); Alkaline Phosphatase 50 U/L (45-117); Anion Gap 10.5 mEq/L (5.0-15.0); BUN Blood Urea Nitrogen 49 mg/dL (7-18); Bicarbonate 23 mEq/L (21-32); Bilirubin Total 0.5 mg/dL (0.2-1.0); Globulin 3.2 g/dL (2.3-3.5); Glomerular Filtration Rate 38 ml/min (=/>90); Glucose Level 154 mg/dL (74-106); Magnesium 1.5 mg/dL (1.6-2.4); Potassium 3.5 mEq/L (3.5-5.1); Protein, Total 4.9 g/dL (6.4-8.2); Sodium Level 142 mEq/L (136-145)
[2023-12-23 05:13] LABS: ALT/SGPT < 14 U/L (16-61); Phosphorus 1.5 mg/dL (2.5-4.9)
[2023-12-23] MEDS ORDERED: CALCIUM GLUC 10% INJ 4.65 MEQ in NA CHLORIDE 0.9% 100 ML IV ONE (06:00)
[2023-12-23] MEDS: Magnesium Sulfate 2gm IVPB 2 G/50 ML BAG IV ONE (06:07)
[2023-12-23] MEDS: CALCIUM GLUCONATE 1 GM IVPB 1 GM/50 ML BAG IV ONE ×2 (06:07→12:02)
[2023-12-23] MEDS: NA CHLORIDE 0.9% 250 ML IV SCH (06:13)
[2023-12-23] MEDS: POTASSIUM PHOS IN 0.9 % NACL 15 MMOL/250 ML BAG IV ONE ×2 (06:49→10:21)
[2023-12-23] MEDS ORDERED: CALCIUM GLUC 10% INJ 9.3 MEQ in NA CHLORIDE 0.9% 100 ML IV SCH (09:00)
--- NOTE | 2023-12-23 09:40 | P.PN ---
Date of Service: 12/23/23 Subjective: slight bloody output from ostomy/MILLY drain off levophed yesterday am NGT removed yesterday; tolerating few ice chips feeling better, reports some gas from ostomy once afebrile ROS: 10 point ROS as noted above, otherwise negative Physical Exam: GEN: Alert, oriented, NAD HEENT: Normal conjunctiva, sclera anicteric CV: Regular rate and rhythm, trace pedal edema Pulm: Nonlabored respirations on RA, diminished ABD: dressing in place, colostomy bag in place with slight bloody output Neuro: Normal speech, normal affect Sol in place MILLY drain x2 in place colostomy bag in place vitals reviewed Problem List: Perforated diverticulitis, s/p sigmoid bowel resection with end colostomy (12/19) intraabdominal abscess s/p evacuation (12/19) Ventral hernia 3cm s/p repair (12/19) Shock - multifactorial - sepsis/hypovolemic ARSALAN acute blood loss anemia STEMI, Severe CAD, s/p PCI x3 (12/19) Hyponatremia, Hypokalemia, Hypocalcemia Multiple myeloma on chemotherapy Generalized weakness Thrombocytopenia Perforated diverticulitis, s/p sigmoid bowel resection with end colostomy (12/19) intraabdominal abscess s/p evacuation (12/19) Ventral hernia 3cm s/p repair (12/19) Shock - multifactorial - sepsis/hypovolemic Came to ER per patients oncologist due to outpatient labs with electrolyte abnormalities. Presents with epigastric abdominal pain, generalized weakness, poor PO intake over the past weeks. Dr. Moore, general surgery consulted s/p sigmoid bowel resection with end colostomy, evacuation of intraabdominal abscess, and ventral hernia repair (12/19) NGT dc'd 12/21 MILLY drain x2 in place IV Protonix BID zosyn/cefoxitin (12/19-12/19) switched to merrem / vanc (12/19-) DC vanc 12/22 ID following afebrile, no leukocytosis blood cx (12/18): NGTD wound cx (12/18): E. coli ESBL PRN analgesics / antiemetics shock likely secondary to hypovolemia and a degree of distributive shock from perforated diverticulitis / sepsis improving PICC placed 12/20. continue TPN (12/22), adjust IVF acute blood loss anemia pt with unknown IgG antibody - lab report reaction is effect of his MM medication and not true allergy currently on chemo - is immunosupressed s/p 2 unit irradiated PRBCs (12/20 & 12/21) 1 more unit irradiated PRBCs ordered oozing on exam slowing. Off levophed sicne 12/21 am Continue to monitor H&H. STEMI Severe CAD, s/p PCI x3 (12/19) Patient noted to be in vtach HR 140s 12/19 morning and felt like his heart was racing. +chest pain. BP dropped to 43/38 at the time - MAP 43 off levophed since 12/[address] elevations Cardiology is following s/p LHC found to have Severe mid LAD disease (~80%) and diagonal disease (80- 90%), s/p PCI to LAD and diagonal Significant mid circ/proximal OM1 disease (90%), s/p PCI Severe proximal RPLV disease (~80%), continue medical management for now until the patient's condition stabilize. echo ordered to reeval continue aspirin 81 mg, brilinta continue close monitoring in ICU ARSALAN Hyponatremia, Hypokalemia, Hypocalcemia suspect prerenal ARSALAN secondary decreased PO intake, hypotension. Family reports patients been feeling weak past few weeks and has had very poor appetite/intake. Nephrology consulted on TPN (12/21-), adjust IVF continue to monitor renal function Monitor electrolytes. replete as needed Multiple myeloma on chemotherapy Generalized weakness Thrombocytopenia Reports recent diagnosis of multiple myeloma. On chemotherapy - last received chemo treatment 12/18 am. weakness and thrombocytopenia likely secondary to cancer / chemo PT/OT/Dietitian consult s/p 1 platelet transfusion overnight (12/19-12/20) s/p 2 unit irradiated plt so far; 3rd unit ordered (12/22) Daily labs fibrinogen 591 Code: Full Dispo: continue ICU level of care
--- NOTE | 2023-12-23 09:50 | P.PN ---
Subjective Date of Service: 12/23/23 Chief Complaint: Hypocalcemia thrombocytopenia Subjective: Improving (Patient is improving doing well pertinent problems include hypocalcemia and thrombocytopenia hypocalcemia is mild when corrected for albumin he is doing much better denies any complaints off vasopressors) Review of Systems General: Weakness Respiratory: Shortness of Breath Physical Examination - Vital Signs Temperature: 97 F Blood Pressure: 117/66 Pulse: 64 Respirations: 18 Pulse Ox (%): 98 - Physical Exam General: Alert, In no apparent distress, Oriented x3 Respiratory: Clear to auscultation bilaterally Cardiovascular: No edema, Regular rate/rhythm, Normal S1 S2 - Studies Medications List Reviewed: Yes Assessment And Plan - Current Problems (Diagnosis) (1) Thrombocytopenia Current Visit: Yes Status: Acute Plan: Patient is currently doing better he is off vasopressors renal function is improving some bleeding at the site of the colostomy tube patient is on Brilinta and aspirin patient has pancytopenia with worsening thrombocytopenia renal function is improved oxygenation vital signs all stable. Stopping vancomycin due to thrombocytopenia evidence of active sepsis continue with meropenem ESBL isolated from the wound/patient is off vasopressors oxygenation satisfactory pain is declined he has been advanced to fluids sips
[2023-12-23] MEDS: CALCIUM GLUCONATE 1 GM IVPB 2 GM/100 ML BAG IV SCH (10:22)
[2023-12-23] MEDS: NACHLORIDE 0.45% 1,000 ML with POTASSIUM CL 40 MEQ IV SCH (10:22)
[2023-12-23] MEDS: AA 5%/D20W/ELECTROLYTES-TPN 2,000 ML, Lipids 20% 250 ML with MULTIVITAMINS INJ 10 ML IV SCH (10:22)
[2023-12-23 11:01] LABS: Hematocrit 26.6 % (39.6-49.0); MCHC 33.7 g/dL (32.0-36.0); MCV 88.9 fL (80-100); Platelets 51 thou/uL (152-406); RBC Red Blood Cell Count 2.99 M/uL (4.33-5.43); Red Cell Distribution Width 17.2 % (12.1-15.2)
--- NOTE | 2023-12-23 12:49 | P.PN ---
Subjective Date of Service: 12/23/23 Chief Complaint: Hypocalcemia thrombocytopenia Subjective: No new changes (Patient looks better today and was able to communicate better), No C/O voiced, Tolerating diet, Ambulating, Improving Review of Systems 10-point ROS is otherwise unremarkable Physical Examination - Vital Signs Temperature: 97.7 F Blood Pressure: 120/61 Pulse: 64 Respirations: 21 Pulse Ox (%): 98 - Physical Exam General: Alert, In no apparent distress HEENT: Atraumatic, PERRLA, EOMI Neck: Supple, JVD not distended Respiratory: Clear to auscultation bilaterally, Normal air movement Cardiovascular: Regular rate/rhythm, Normal S1 S2 Gastrointestinal: Normal bowel sounds, No tenderness Musculoskeletal: No tenderness Integumentary: No rashes Neurological: Normal speech, Normal tone, Normal affect Lymphatics: No axilla or inguinal lymphadenopathy - Studies Medications List Reviewed: Yes Assessment And Plan - Current Problems (Diagnosis) (1) STEMI (ST elevation myocardial infarction) Current Visit: Yes Status: Acute Plan: Patient developed VT and ST elevation [place] after Lapratomy, EKG shown ST elevation anterolateral leads so was taken emergently to matlab developer and multiple stents were placed. ASA 81 mg daily Brilinta 90 mg po BID Lipitor 40 mg daily (2) Shock Current Visit: Yes Status: Acute Plan: most likely secondary to recent lapratomy and peritonitis and bleeding, BP has been more stable, off pressors, continue to monitor appreciate surgical team input. please get Echo (3) Perforated bowel Current Visit: Yes Status: Acute Plan: appreciate surgical team input and follow up.
[2023-12-23] MEDS ORDERED: AA 5%/D20W/ELECTROLYTES-TPN 2,000 ML, Lipids 20% 250 ML with MULTIVITAMINS INJ 10 ML IV SCH (17:00)
[2023-12-24 06:35] LABS: Absolute Eosinophils 0.1 K/uL (0-0.5); Absolute Lymphocytes (CBC) 0.2 K/uL (0.7-4.9); Absolute Monocytes 0.8 K/uL (0.1-1.3); Absolute Neutrophil 2.4 K/uL (1.8-8.0); Basophils % 0.3 % (0-1.3); Eosinophils % 4.1 % (0-4.4); Hematocrit 24.1 % (39.6-49.0); Hemoglobin 8.2 g/dL (13.6-17.9); Lymphocytes % 4.7 % (15.3-44.8); MCH 30.1 pg (27.0-35.0); MCHC 33.9 g/dL (32.0-36.0); MPV 9.1 fL (7.6-11.3); Monocytes % 22.7 % (3.3-12.3); Neutrophils % 68.2 % (41.7-73.7); Nucleated Red Blood Cells % 0.2 % (0-0); Platelets 30 thou/uL (152-406); RBC Red Blood Cell Count 2.71 M/uL (4.33-5.43); Red Cell Distribution Width 17.3 % (12.1-15.2)
[2023-12-24 06:59] LABS: ALT/SGPT < 14 U/L (16-61); AST/SGOT 12 U/L (15-37); Albumin 1.6 g/dL (3.4-5.0); Albumin/Globulin Ratio 0.5 (1.1-1.8); Alkaline Phosphatase 47 U/L (45-117); BUN Blood Urea Nitrogen 42 mg/dL (7-18); Bicarbonate 23 mEq/L (21-32); Bilirubin Total 0.5 mg/dL (0.2-1.0); Globulin 3.1 g/dL (2.3-3.5); Glomerular Filtration Rate 51 ml/min (=/>90); Glucose Level 228 mg/dL (74-106); Magnesium 1.5 mg/dL (1.6-2.4); Protein, Total 4.7 g/dL (6.4-8.2); Sodium Level 138 mEq/L (136-145)
[2023-12-24] MEDS: CALCIUM GLUCONATE 1 GM IVPB 1 GM/50 ML BAG IV SCH (08:14)
[2023-12-24] MEDS: KCL 20 MEQ/100 mL IVPB 20 MEQ/100 ML BAG IV SCH (08:16)
[2023-12-24] MEDS: Magnesium Sulfate 2gm IVPB 2 G/50 ML BAG IV ONE (08:16)
[2023-12-24] MEDS: POTASSIUM PHOS IN 0.9 % NACL 15 MMOL/250 ML BAG IV ONE (08:17)
[2023-12-24 09:09] LABS: Blood Morphology Comment NOT SEEN (NOT SEEN); Differential Total Cells Count 100; Eosinophils 2 % (0-3); Lymphocytes 12 % (15-42); Monocytes 30 % (0-10); Platelet Estimate DECR; Segmented Neutrophils 54 % (40-80)
--- NOTE | 2023-12-24 09:44 | P.PN ---
(S) Pt doing better since last seen, remains in the ICU, tolerating clears, on TPN, still repleting lytes, no sig abd pain or N/V (O) Vitals reviewed in the EMR General: NAD HEENT: Atraumatic, Normocephalic, Other (NC) Neck: Supple, Other (Rt IJ CVC) Respiratory: Other (b/l air entry without wheezes or rhonchi) Cardiovascular: Other (Non tachy, mostly regular) Gastrointestinal: Other (Less distended, mod, midline incision covered with dressing, left sided stoma MILLY drains) Musculoskeletal: Other (Some mild dependent LE edema, SCDs b/l) Integumentary: No rashes Neurological: Other (Awake, alert, no tremors or myoclonus noted) Laboratory Data (last 24 hrs) Reviewed in the EMR Conclusions/Impression: A/P) 1. Stage II ARSALAN in the setting of infection, hypotension, hypovolemia, PORTIA and other. Cr level peaked and has since downward trended nicely. 3. Hyponatremia on admission 2nd to hypovolemia -resolved 4. Hypokalemia in the setting of GI losses, other -cont to replete with IV KCL 5. Severe hypocalcemia with total corrected Ca < 7 mg/dl initially. Drop in Ca in the setting of acute illness +/- any recent administration of Prolia or bisphosphonates as OP as family mentions a prior hx of hypercelamia with MM. Total corrected Ca now > 8 mg/dl 6. Hypotension in the setting of infection, peritonitis, other -resolved 7. Perforated viscus, peritonitis s/p lap, sigmoid colectomy with end colostomy -management per gen surgery Ike Friend MD, JUAN PABLO
--- NOTE | 2023-12-24 10:21 | P.PN ---
Subjective Date of Service: 12/24/23 (Hospitalist) Chief Complaint: Hypocalcemia thrombocytopenia Subjective: Improving (Patient is improving doing well denies any abdominal pain tolerating some sips of fluid minimal bleeding from the colostomy tube) Review of Systems Unremarkable General: Weakness Respiratory: Shortness of Breath Physical Examination - Vital Signs Temperature: 97.6 F Blood Pressure: 112/61 Pulse: 63 Respirations: 22 Pulse Ox (%): 98 - Physical Exam General: Alert, Oriented x3, Mild distress Neck: Supple Respiratory: Clear to auscultation bilaterally Cardiovascular: No edema, Regular rate/rhythm Gastrointestinal: Hypoactive - Studies Medications List Reviewed: Yes Assessment And Plan - Current Problems (Diagnosis) (1) Thrombocytopenia Current Visit: Yes Status: Acute Plan: Patient is thrombocytopenic vital signs are all stable minimal bleeding platelet count is now 30,000 continue to monitor vancomycin was discontinued denies history of multiple myeloma number cytopenia and may be part aggravated by an infection (2) Peritonitis Current Visit: Yes Status: Acute Plan: Continue with present treatment no change in therapy patient is mildly anemic serum calcium is improving renal function is also improving start patient on TPN today continue with meropenem
--- NOTE | 2023-12-24 10:27 | P.PN ---
Subjective Date of Service: 12/24/23 Chief Complaint: Hypocalcemia thrombocytopenia Subjective: No new changes, No C/O voiced, Tolerating diet, Ambulating, Improving Review of Systems 10-point ROS is otherwise unremarkable Physical Examination - Vital Signs Temperature: 97.6 F Blood Pressure: 112/61 Pulse: 63 Respirations: 22 Pulse Ox (%): 98 - Physical Exam General: Alert, In no apparent distress HEENT: Atraumatic, PERRLA, EOMI Neck: Supple, JVD not distended Respiratory: Clear to auscultation bilaterally, Normal air movement Cardiovascular: Regular rate/rhythm, Normal S1 S2 Gastrointestinal: Normal bowel sounds, No tenderness Musculoskeletal: No tenderness Integumentary: No rashes Neurological: Normal speech, Normal tone, Normal affect Lymphatics: No axilla or inguinal lymphadenopathy - Studies Medications List Reviewed: Yes Assessment And Plan - Current Problems (Diagnosis) (1) STEMI (ST elevation myocardial infarction) Current Visit: Yes Status: Acute Plan: Patient developed VT and ST elevation [place] after Lapratomy, EKG shown ST elevation anterolateral leads so was taken emergently to labor custodian and multiple stents were placed. ASA 81 mg daily Brilinta 90 mg po BID Lipitor 40 mg daily (2) Shock Current Visit: Yes Status: Acute Plan: most likely secondary to recent lapratomy and peritonitis and bleeding, BP has been more stable, off pressors, continue to monitor appreciate surgical team input. please get Echo (3) Perforated bowel Current Visit: Yes Status: Acute Plan: appreciate surgical team input and follow up.
--- NOTE | 2023-12-24 14:40 | ECHO ---
HEIGHT: 5 ft 6 in WEIGHT: 182 lb 0 oz DATE OF STUDY: 12/24/[address]: Eddie Dennis MD 2-DIMENSIONAL: YES M.MODE: YES DOPPLER: YES COLOR FLOW: YES TDS: PORTABLE: YES DEFINITY: BUBBLE STUDY: DIAGNOSIS: EVALUATE EJECTION FRACTION, STENOSIS CARDIAC HISTORY: CATHERIZATION: YES SURGERY: NO PROSTHETIC VALVE: NO PACEMAKER: NO MEASUREMENTS (cm) DIASTOLIC (NORMALS) SYSTOLIC (NORMALS) IVSd 1.2 (0.6-1.2) LA Diam 2.9 (1.9-4.0) LVEF 55-60% LVIDd 4.8 (3.5-5.7) LVIDs 3.3 (2.0-3.5) %FS 31% LVPWd 1.2 (0.6-1.2) Ao Diam 2.7 (2.0-3.7) 2 DIMENSIONAL ASSESSMENT: RIGHT ATRIUM: NORMAL LEFT ATRIUM: NORMAL RIGHT VENTRICLE: NORMAL LEFT VENTRICLE: NORMAL TRICUSPID VALVE: MILD TRICUSPID REGURGITAITON MITRAL VALVE: MILD MITRAL REGURGITATION PULMONIC VALVE: NORMAL AORTIC VALVE: NORMAL PERICARDIAL EFFUSION: NONE AORTIC ROOT: NORMAL LEFT VENTRICULAR WALL MOTION: NORMAL DOPPLER/COLOR FLOW: SEE BELOW COMMENTS: 1. POOR STUDY 2. NORMAL LEFT VENTRICULAR EJECTION FRACTION 55-60% 3. GRADE I DIASTOLIC DYSFUNCTION 4. MILD MITRAL REGURGITATION/ MILD TRICUSPID REGURGITATION TECHNOLOGIST: BREA FORD
--- NOTE | 2023-12-24 15:45 | PN ---
Date of Progress Note: 12/24/2023 Subjective: The patient is lying in bed. No new acute event. Chart reviewed. Objective: Vital Signs: Temperature 97, pulse 63, respirations 22, blood pressure 112/61. HEENT: Unremarkable. Neck: Supple. Lungs: Basal crackles. Heart: S1, S2. Regular. Abdomen: Soft, nontender. Bowel sounds present. Extremity: Trace edema. Laboratory Data: Shows WBC 3.6, hemoglobin 8.2, platelets are 30. Chemistry is sodium 138, potassiu m 3, chloride 108, bicarb 23, BUN 42, creatinine 1.4. His albumin level is 1.6. Micro data is showi ng E coli ESBL from abdominal wound on December 18. Assessment And Plan: 68-year-old male with history of multiple myeloma, now with pancytopenia and pe ritonitis. Abdominal wound cultures are growing E coli ESBL, currently on meropenem, broad spectrum. The patient denies any discomfort at this time. We will continue current treatment. Stage 2 acute kidney injury. Hyponatremia and hypokalemia with perforated viscus, status post laparotomy surgery and sigmoid colectomy with end colostomy placement, currently on TPN. No other recommendation, at th is time. Continue current antibiotic. Consider long-term acute care evaluation. We will follow the patient as needed. NF/MODL Voice ID: [id number] Report ID: [id number]
[2023-12-24] MEDS ORDERED: AA 5%/D20W/ELECTROLYTES-TPN 2,000 ML IV SCH (17:00)
--- NOTE | 2023-12-24 17:09 | PN ---
Date of Progress Note: 12/24/2023 Diagnoses: Ruptured perforated diverticulitis with intraabdominal abscess, requiring emergent laparo ana with bowel resection and end colostomy. He is on chemotherapy for a metastatic cancer. Also TRINA weinberg, recent. Morbid obesity. Subjective: The patient is doing well. He is talking. He is cooperative. He is in good spirits. Objective: Vital Signs: Reviewed. Chest: Clear. Abdomen: Soft and depressible. Intact midline. We are still doing the packing. Ostomy viable and have some gas on it. Extremities: Good capillary refill. Laboratory Data: Blood work shows a WBC count of 3.6 with hemoglobin of 8.2. INR is 1.20. Glucose of 228. Plan: Start clear liquid diet. Out of bed ambulation. From the surgical standpoint, he can be ambrose sferred to the floor whenever the medical doctors believe it is safe. If he goes to floor, we will c ontinue with the same orders including the antibiotics, the MILLY drain, the ambulation, and the incenti ve spirometry. HM/MODL Voice ID: [id number] Report ID: [id number]
[2023-12-24] MEDS: MAGNESIUM IV SCH (17:24)
[2023-12-24] MEDS: [UNRECOGNIZED DRUG - OTHER] IV SCH (17:24)
[2023-12-24] MEDS: POTASSIUM PHOS IV SCH (17:24)
[2023-12-24] MEDS ORDERED: KCL 20 MEQ/100 mL IVPB 20 MEQ/100 ML BAG IV SCH (23:00)
[2023-12-25] MEDS: KCL 20 MEQ/100 mL IVPB 20 MEQ/100 ML BAG IV SCH ×2 (01:14→15:58)
[2023-12-25 05:31] LABS: Absolute Eosinophils 0.3 K/uL (0-0.5); Absolute Lymphocytes (CBC) 0.2 K/uL (0.7-4.9); Absolute Neutrophil 2.2 K/uL (1.8-8.0); Basophils % 0.3 % (0-1.3); Eosinophils % 8.4 % (0-4.4); Hematocrit 24.4 % (39.6-49.0); Hemoglobin 8.2 g/dL (13.6-17.9); Lymphocytes % 5.5 % (15.3-44.8); MCH 29.7 pg (27.0-35.0); MCHC 33.4 g/dL (32.0-36.0); MCV 88.7 fL (80-100); MPV 10.1 fL (7.6-11.3); Monocytes % 25.8 % (3.3-12.3); Nucleated Red Blood Cells % 0.1 % (0-0); Platelets 28 thou/uL (152-406); RBC Red Blood Cell Count 2.75 M/uL (4.33-5.43)
[2023-12-25 05:49] LABS: Albumin 1.6 g/dL (3.4-5.0); Albumin/Globulin Ratio 0.5 (1.1-1.8); Alkaline Phosphatase 57 U/L (45-117); Anion Gap 8.4 mEq/L (5.0-15.0); BUN Blood Urea Nitrogen 41 mg/dL (7-18); Bicarbonate 24 mEq/L (21-32); Bilirubin Total 0.6 mg/dL (0.2-1.0); Globulin 3.2 g/dL (2.3-3.5); Glomerular Filtration Rate 63 ml/min (=/>90); Glucose Level 201 mg/dL (74-106); Magnesium 1.6 mg/dL (1.6-2.4); Potassium 3.4 mEq/L (3.5-5.1); Protein, Total 4.8 g/dL (6.4-8.2); Sodium Level 137 mEq/L (136-145)
[2023-12-25 05:55] LABS: ALT/SGPT < 14 U/L (16-61); AST/SGOT < 10 U/L (15-37)
[2023-12-25 06:56] LABS: Blood Morphology Comment NOT SEEN (NOT SEEN); Differential Total Cells Count 100; Eosinophils 3 % (0-3); Lymphocytes 8 % (15-42); Monocytes 22 % (0-10); Platelet Estimate DECR; Segmented Neutrophils 67 % (40-80)
[2023-12-25 08:21] LABS: Phosphorus 3.1 mg/dL (2.5-4.9)
--- NOTE | 2023-12-25 09:02 | P.PN ---
Subjective Date of Service: 12/25/23 Chief Complaint: Hypocalcemia thrombocytopenia Subjective: Improving (Patient is improving doing well minimal abdominal discomfort no further bleeding through the colostomy) Review of Systems General: Weakness Respiratory: Shortness of Breath Physical Examination - Vital Signs Temperature: 97.9 F Blood Pressure: 94/54 Pulse: 64 Respirations: 19 Pulse Ox (%): 100 - Physical Exam General: Alert, In no apparent distress, Oriented x3 Respiratory: Clear to auscultation bilaterally Gastrointestinal: Hypoactive, Non-distended - Studies Microbiology Data (last 24 hrs): 12/19/23 18:50 Blood - Blood Aerobic Blood Culture - Final No growth in 5 days. 12/19/23 18:50 Blood - Blood Anaerobic Blood Culture - Final No growth in 5 days. 12/19/23 18:34 Blood - Blood Aerobic Blood Culture - Final No growth in 5 days. 12/19/23 18:34 Blood - Blood Anaerobic Blood Culture - Final No growth in 5 days. Medications List Reviewed: Yes Assessment And Plan - Current Problems (Diagnosis) (1) Thrombocytopenia Current Visit: Yes Status: Acute Plan: Patient's thrombocytopenia is now stable (2) Peritonitis Current Visit: Yes Status: Acute Plan: Condition has improved and has mild pancytopenia transfer to the floor transferred to the floor physical therapy
--- NOTE | 2023-12-25 10:37 | P.PN ---
(S) BP a bit soft, pt acknowledges mild orthostatic symptoms, still on TPN, getting ready to transfer out of ICU. No active N/V (O) Vitals reviewed in the EMR General: NAD HEENT: Atraumatic, Normocephalic, Other (NC) Neck: Supple, Other (Rt IJ CVC) Respiratory: Other (b/l air entry without wheezes or rhonchi) Cardiovascular: Other (Non tachy, mostly regular) Gastrointestinal: Other (Less distended, mod, midline incision covered with dressing, left sided stoma MILLY drains) Musculoskeletal: Other (Some mild dependent LE edema, SCDs b/l) Integumentary: No rashes Neurological: Other (Awake, alert, no tremors or myoclonus noted) Laboratory Data (last 24 hrs) Reviewed in the EMR Conclusions/Impression: A/P) 1. Stage II ARSALAN in the setting of infection, hypotension, hypovolemia, PORTIA and other, now resolving. Cr level peaked and has since downward trended nicely. 3. Hyponatremia on admission 2nd to hypovolemia -resolved 4. Hypokalemia in the setting of GI losses, other -cont to replete with IV KCL, KCL added to TPN 5. Severe hypocalcemia with total corrected Ca < 7 mg/dl initially. Drop in Ca in the setting of acute illness +/- any recent administration of Prolia or bisphosphonates as OP as family mentions a prior hx of hypercelamia with MM. Total corrected Ca now > 8 mg/dl. Added PO calcium carbonate 6. Hypotension in the setting of infection, peritonitis, other -resolved but BP remains soft, monitor I/Os. Will dose IV Albumin x 1 now and PRN fluid bolus as needed 7. Perforated viscus, peritonitis s/p lap, sigmoid colectomy with end colostomy -management per gen surgery Ike Friend MD, JUAN PABLO
[2023-12-25] MEDS: ALBUMIN HUMAN 25% 100 ML IV ONE (11:32)
[2023-12-25] MEDS: Magnesium Sulfate 2gm IVPB 2 G/50 ML BAG IV ONE (11:33)
--- NOTE | 2023-12-25 13:07 | PN ---
Date of Progress Note: 12/25/2023 Subjective: The patient is lying in bed. No new acute event. Chart reviewed. Objective: Vital Signs: Temperature 97, pulse 64, respiration 19, blood pressure 94/54. Lungs: Basal crackles. Heart: S1, S2. Regular. Abdomen: Soft, nontender. Bowel sounds present. Extremity: No edema. Wounds noted. Laboratory Data: Shows WBC 3.7, hemoglobin 8.2, platelets 28. Chemistry shows BUN of 41, creatinine 1.2. Medications: The patient currently on TPN and meropenem. See MAR for other medications. Assessment And Plan: Pancytopenia in patient with multiple myeloma and abdominal wound with E coli E SBL, currently on meropenem and TPN. Continue current treatment. No other recommendation at this ti ma. NF/MODL Voice ID: [id number] Report ID: [id number]
[2023-12-25] MEDS: CALCIUM CARBONATE 500 MG TAB PO SCH (15:58)
[2023-12-25] MEDS: ENOXAPARIN 40 MG/0.4 ML SQ SCH (15:58)
[2023-12-25] MEDS: ALBUMIN HUMAN 25% 50 ML IV ONE (16:05)
--- NOTE | 2023-12-25 16:51 | P.PN ---
Subjective Date of Service: 12/25/23 Chief Complaint: Hypocalcemia thrombocytopenia Subjective: No new changes Review of Systems 10-point ROS is otherwise unremarkable Physical Examination - Vital Signs Temperature: 97.5 F Blood Pressure: 106/58 Pulse: 65 Respirations: 20 Pulse Ox (%): 96 - Physical Exam General: Alert, In no apparent distress HEENT: Atraumatic, PERRLA, EOMI Neck: Supple, JVD not distended Respiratory: Clear to auscultation bilaterally, Normal air movement Cardiovascular: Regular rate/rhythm, Normal S1 S2 Gastrointestinal: Normal bowel sounds, No tenderness Musculoskeletal: No tenderness Integumentary: No rashes Neurological: Normal speech, Normal tone, Normal affect Lymphatics: No axilla or inguinal lymphadenopathy - Studies Microbiology Data (last 24 hrs): 12/19/23 18:50 Blood - Blood Aerobic Blood Culture - Final No growth in 5 days. 12/19/23 18:50 Blood - Blood Anaerobic Blood Culture - Final No growth in 5 days. 12/19/23 18:34 Blood - Blood Aerobic Blood Culture - Final No growth in 5 days. 12/19/23 18:34 Blood - Blood Anaerobic Blood Culture - Final No growth in 5 days. Medications List Reviewed: Yes Assessment And Plan - Current Problems (Diagnosis) (1) STEMI (ST elevation myocardial infarction) Current Visit: Yes Status: Acute Plan: Patient developed VT and ST elevation [place] after Lapratomy, EKG shown ST elevation anterolateral leads so was taken emergently to cathode builder and multiple stents were placed. ASA 81 mg daily Brilinta 90 mg po BID Lipitor 40 mg daily (2) Shock Current Visit: Yes Status: Acute Plan: most likely secondary to recent lapratomy and peritonitis and bleeding, BP has been more stable, off pressors, continue to monitor appreciate surgical team input. Echo reviewed. (3) Perforated bowel Current Visit: Yes Status: Acute Plan: appreciate surgical team input and follow up.
[2023-12-25] MEDS: AA 5%/D20W/ELECTROLYTES-TPN 2,000 ML, Lipids 20% 250 ML with MULTIVITAMINS INJ 10 ML, P... IV SCH (18:02)
[2023-12-26] MEDS: NA CHLORIDE 0.9% 100 ML ONE (01:11)
[2023-12-26 05:10] LABS: Absolute Eosinophils 0.4 K/uL (0-0.5); Absolute Lymphocytes (CBC) 0.2 K/uL (0.7-4.9); Absolute Monocytes 0.8 K/uL (0.1-1.3); Absolute Neutrophil 1.7 K/uL (1.8-8.0); Basophils % 0.2 % (0-1.3); Eosinophils % 12.1 % (0-4.4); Hematocrit 22.1 % (39.6-49.0); Hemoglobin 7.5 g/dL (13.6-17.9); Lymphocytes % 6.9 % (15.3-44.8); MCH 30.2 pg (27.0-35.0); MCV 88.7 fL (80-100); MPV 11.8 fL (7.6-11.3); Monocytes % 25.8 % (3.3-12.3); Nucleated Red Blood Cells % 0.1 % (0-0); Platelets 56 thou/uL (152-406); Red Cell Distribution Width 16.9 % (12.1-15.2)
[2023-12-26 05:31] LABS: Anion Gap 9.5 mEq/L (5.0-15.0); Magnesium 1.9 mg/dL (1.6-2.4); Phosphorus 2.8 mg/dL (2.5-4.9); Potassium 3.5 mEq/L (3.5-5.1)
--- NOTE | 2023-12-26 09:46 | P.PN ---
Subjective Date of Service: 12/26/23 Chief Complaint: Hypocalcemia thrombocytopenia Subjective: No new changes (Patient continues to do better.), No C/O voiced, Tolerating diet, Ambulating, Improving Review of Systems 10-point ROS is otherwise unremarkable Physical Examination - Vital Signs Temperature: 98.4 F Blood Pressure: 99/64 Pulse: 66 Respirations: 14 Pulse Ox (%): 99 - Physical Exam General: Alert, In no apparent distress HEENT: Atraumatic, PERRLA, EOMI Neck: Supple, JVD not distended Respiratory: Clear to auscultation bilaterally, Normal air movement Cardiovascular: Regular rate/rhythm, Normal S1 S2 Gastrointestinal: Normal bowel sounds, No tenderness Musculoskeletal: No tenderness Integumentary: No rashes Neurological: Normal speech, Normal tone, Normal affect Lymphatics: No axilla or inguinal lymphadenopathy - Studies Medications List Reviewed: Yes Assessment And Plan - Current Problems (Diagnosis) (1) STEMI (ST elevation myocardial infarction) Current Visit: Yes Status: Acute Plan: Patient developed VT and ST elevation PA after Lapratomy, EKG shown ST elevation anterolateral leads so was taken emergently to technology lab teacher and multiple stents were placed. ASA 81 mg daily Brilinta 90 mg po BID Lipitor 40 mg daily (2) Shock Current Visit: Yes Status: Acute Plan: most likely secondary to recent lapratomy and peritonitis and bleeding, BP has been more stable, off pressors, continue to monitor appreciate surgical team input. Echo reviewed. (3) Perforated bowel Current Visit: Yes Status: Acute Plan: appreciate surgical team input and follow up.
--- NOTE | 2023-12-26 10:05 | P.PN ---
(S) BP a bit soft, pt acknowledges mild orthostatic symptoms, still on TPN,, remains in the ICU. No active N/V (O) Vitals reviewed in the EMR General: NAD HEENT: Atraumatic, Normocephalic, Other (NC) Neck: Supple, Other (Rt IJ CVC) Respiratory: Other (b/l air entry without wheezes or rhonchi) Cardiovascular: Other (Non tachy, mostly regular) Gastrointestinal: Other (Less distended, mod, midline incision covered with dressing, left sided stoma MILLY drains) Musculoskeletal: Other (Some mild dependent LE edema, SCDs b/l) Integumentary: No rashes Neurological: Other (Awake, alert, no tremors or myoclonus noted) Laboratory Data (last 24 hrs) Reviewed in the EMR Conclusions/Impression: A/P) 1. Stage II ARSALAN in the setting of infection, hypotension, hypovolemia, PORTIA and other, now resolving. Cr level peaked and has since downward trended nicely. D/c hetal 3. Hyponatremia on admission 2nd to hypovolemia -resolved 4. Hypokalemia in the setting of GI losses, other -cont to replete with IV KCL as needed, K at LLN, KCL added to TPN 5. Severe hypocalcemia with total corrected Ca < 7 mg/dl initially. Drop in Ca in the setting of acute illness +/- any recent administration of Prolia or bisphosphonates as OP as family mentions a prior hx of hypercelamia with MM. Total corrected Ca now > 8 mg/dl. Added PO calcium carbonate 6. Hypotension in the setting of infection, peritonitis, other -resolved but BP remains soft, monitor I/Os which show slight neg fluid balance over the prior 24h. Did dose IV Albumin x 1 yesterday, NS 500 cc bolus ordered today. 7. Perforated viscus, peritonitis s/p lap, sigmoid colectomy with end colostomy -management per gen surgery Ike Friend MD, JUAN PABLO
[2023-12-26] MEDS: NA CHLORIDE 0.9% 500 ML IV ONE (10:19)
[2023-12-26] MEDS: KCL 20 MEQ/100 mL IVPB 20 MEQ/100 ML BAG IV SCH (10:19)
--- NOTE | 2023-12-26 11:41 | P.PN ---
Subjective Date of Service: 12/26/23 Chief Complaint: Hypocalcemia thrombocytopenia Subjective: Improving (Patient is doing better no new complaints hemodynamically stable) Review of Systems General: Weakness Respiratory: Shortness of Breath Gastrointestinal: Abdominal Pain Physical Examination - Vital Signs Temperature: 98.4 F Blood Pressure: 105/58 Pulse: 69 Respirations: 20 Pulse Ox (%): 100 - Studies Medications List Reviewed: Yes Assessment And Plan - Current Problems (Diagnosis) (1) Thrombocytopenia Current Visit: Yes Status: Acute Plan: Patient's platelet count is stabilized with slight decline in his hemoglobin will transfuse 1 unit of packed red blood cells (2) Peritonitis Current Visit: Yes Status: Acute Plan: Condition improving continue with meropenem she has a colostomy no further bleed start physical therapy ambulate poor appetite
[2023-12-26] MEDS: ENSURE HIGH PROTEIN 237 ML CAN PO SCH (14:00)
[2023-12-26] MEDS ORDERED: HYDROCODONE/APAP 5/325 MG TAB PO PRN (16:16)
[2023-12-26] MEDS: HYDROCODONE/APAP 10/325 TAB PO PRN (16:35)
[2023-12-26] MEDS: HYDROMORPHONE HCL 1 MG/ML INJ IV PRN (17:53)
[2023-12-26 19:14] LABS: Hemoglobin 8.4 g/dL (13.6-17.9)
[2023-12-26 19:46] LABS: Hematocrit 25.1 % (39.6-49.0)
--- NOTE | 2023-12-26 20:46 | PN ---
Date of Progress Note: 12/26/2023 Diagnoses: Status post bowel perforation, metastatic colon cancer, laparotomy, bowel resection and c olostomy, diabetes, morbid obesity. Subjective: The patient is doing well. Good attitude. No shortness of breath. No chest pain. No fever. Objective: Chest: Clear. Abdomen: Soft and depressible. Intact surgical site. Doing dressing changes. Ostomy viable and fu nctional. Extremities: Good capillary refill. Laboratory Data: Blood work shows WBC count of 3.2, hemoglobin of 7.5, platelets of 56. Chemistry s hows a sodium of 135 and glucose 174. MILLY drains serosanguineous. Plan: Continue dressing changes. Wound VAC when possible. Out of bed. Incentive spirometry. Diet . HM/MODL Voice ID: [id number] Report ID: [id number]
[2023-12-27 04:40] LABS: Absolute Eosinophils 0.4 K/uL (0-0.5); Absolute Lymphocytes (CBC) 0.2 K/uL (0.7-4.9); Absolute Monocytes 0.9 K/uL (0.1-1.3); Absolute Neutrophil 2.3 K/uL (1.8-8.0); Basophils % 0.8 % (0-1.3); Eosinophils % 9.6 % (0-4.4); Hematocrit 24.9 % (39.6-49.0); Hemoglobin 8.5 g/dL (13.6-17.9); Lymphocytes % 5.8 % (15.3-44.8); MCH 29.7 pg (27.0-35.0); MCHC 34.1 g/dL (32.0-36.0); MCV 87.1 fL (80-100); MPV 10.2 fL (7.6-11.3); Monocytes % 24.4 % (3.3-12.3); Neutrophils % 59.4 % (41.7-73.7); Nucleated Red Blood Cells % 0.1 % (0-0); Platelets 89 thou/uL (152-406); RBC Red Blood Cell Count 2.86 M/uL (4.33-5.43); Red Cell Distribution Width 17.4 % (12.1-15.2)
[2023-12-27 05:00] LABS: Anion Gap 6.9 mEq/L (5.0-15.0); Magnesium 1.8 mg/dL (1.6-2.4); Potassium 3.9 mEq/L (3.5-5.1)
[2023-12-27] MEDS: POTASSIUM CL SA 10 MEQ TAB PO ONE (08:08)
[2023-12-27] MEDS: MAGNESIUM SULFATE 1 gm IVPB 1 GM/100 ML BAG IV ONE (08:09)
--- NOTE | 2023-12-27 11:24 | P.PN ---
Subjective Date of Service: 12/27/23 Chief Complaint: Hypocalcemia thrombocytopenia Subjective: Improving (Patient is complaining of abdominal pain pain at the osteotomy site) Review of Systems General: Weakness Respiratory: Shortness of Breath Gastrointestinal: Abdominal Pain Physical Examination - Vital Signs Temperature: 97.6 F Blood Pressure: 122/67 Pulse: 68 Respirations: 18 Pulse Ox (%): 99 - Physical Exam General: Alert, Mild distress Respiratory: Clear to auscultation bilaterally Cardiovascular: No edema, Normal S1 S2 Gastrointestinal: Hypoactive - Studies Medications List Reviewed: Yes Assessment And Plan - Current Problems (Diagnosis) (1) Thrombocytopenia Current Visit: Yes Status: Acute Plan: Patient's laboratory data have all stabilized platelet count has now increased hemoglobin stable (2) Peritonitis Current Visit: Yes Status: Acute Plan: No change in treatment evaluate for inpatient rehab
--- NOTE | 2023-12-27 11:28 | P.PN ---
(S) BP doing better. Remains on TPN, eating about 30% of his solid meals tray he reports. Has had some sore throat and cough (O) Vitals reviewed in the EMR General: NAD HEENT: Atraumatic, Normocephalic, Other (off NC) Neck: Supple, Other (Rt IJ CVC) Respiratory: Other (b/l air entry without wheezes or rhonchi) Cardiovascular: Other (Non tachy, mostly regular) Gastrointestinal: Other (Less distended, mod, midline incision covered with dressing, left sided stoma) Musculoskeletal: Other (no sig dependent LE edema, SCDs b/l) Integumentary: No rashes Neurological: Other (Awake, alert, no tremors or myoclonus noted) Laboratory Data (last 24 hrs) Reviewed in the EMR Conclusions/Impression: A/P) 1. Stage II ARSALAN in the setting of infection, hypotension, hypovolemia, PORTIA and other, now resolved. Cr level peaked and has since downward trended nicely. D/c hetal 3. Hyponatremia on admission 2nd to hypovolemia -had resolved, slightly lower, will monitor and have pharmacy adjust TPN Na content if needed 4. Hypokalemia in the setting of GI losses, other -resolved, KCL added to TPN 5. Severe hypocalcemia with total corrected Ca < 7 mg/dl initially. Drop in Ca in the setting of acute illness +/- any recent administration of Prolia or bisphosphonates as OP as family mentions a prior hx of hypercelamia with MM. Total corrected Ca now > 8 mg/dl. Added PO calcium carbonate 6. Hypotension in the setting of infection, peritonitis, other -improved but BP remained soft, monitor I/Os which showed in prior days slight neg fluid balance. BP better today. 7. Perforated viscus, peritonitis s/p lap, sigmoid colectomy with end colostomy -management per gen surgery. TPN duration per gen surgery Ike Freind MD, JUAN PABLO
--- NOTE | 2023-12-27 20:10 | PN ---
Date of Progress Note: 12/27/2023 Subjective: Seen by bedside, no chest pain, no shortness of breath. Review of Systems: No chest pain, shortness of breath, orthopnea, cough. No nausea, vomiting, diarrhea. All other syst ems reviewed are negative. Objective: Vital Signs: Reviewed. Head and Neck: Pupils are equal, reactive to light. Intact eye movements. No JVD. No cervical lym phadenopathy. Neck supple. Thyroid is not enlarged. Lungs: Clear to auscultation bilaterally. No rhonchi, wheezing, or crackles. No accessory muscle u se. Heart: Regular rate and rhythm. No extra sounds. Abdomen: Soft, nontender. Bowel sounds positive. No organomegaly. No masses or hernia. No rigidi ty or rebound. Extremities: No edema, clubbing, cyanosis. Intact pulses, Skin: No rashes. Neurologic: Alert, awake, and oriented x3. No acute focal deficit appreciated. Lymph Nodes: No cervical or axillary lymphadenopathy. Investigations: BUN 37, creatinine 1.1, hemoglobin is 8.5. Assessment/recommendations: 1.ST-elevation myocardial infarction post surgery, status post successful multiple PCIs. No chest p ain. No ventricular tachycardia anymore. Continue aspirin and Brilinta. 2.Dyslipidemia. Continue Lipitor 40 mg at bedtime. 3.Ventricular tachycardia, ischemic in nature, status post ST-elevation myocardial infarction and th is is resolved now. I recommend a low-dose beta-miguelito, metoprolol 12.5 mg twice a day if possible if the blood pressure tolerates. 4.Perforated bowel, status post surgery and patient is clinically and hemodynamically stable. Once he is able to take medications by mouth, please put him on Bentyl 40 mg at bedtime. SR/MODL Voice ID: [id number] Report ID: [id number]
[2023-12-28] MEDS: FENTANYL CITR 100 MCG/2 ML IV ONE (04:41)
[2023-12-28] MEDS: FENTANYL 25 MCG/PATCH TD SCH (09:09)
--- NOTE | 2023-12-28 10:21 | P.PN ---
Subjective Date of Service: 12/28/23 Chief Complaint: Hypocalcemia thrombocytopenia Subjective: Improving (Patient is improving colostomy is working complaining of abdominal discomfort) Review of Systems General: Weakness Gastrointestinal: Abdominal Pain Physical Examination - Vital Signs Temperature: 98.1 F Blood Pressure: 131/69 Pulse: 70 Respirations: 18 Pulse Ox (%): 98 - Physical Exam General: Alert, Oriented x3, Moderate distress Respiratory: Clear to auscultation bilaterally Cardiovascular: No edema, Regular rate/rhythm - Studies Medications List Reviewed: Yes Assessment And Plan - Current Problems (Diagnosis) (1) Thrombocytopenia Current Visit: Yes Status: Acute Plan: Currently stable no evidence of bleeding will recheck labs every other day now (2) Peritonitis Current Visit: Yes Status: Acute Plan: No change in treatment evaluate for inpatient rehab. Continue with meropenem have ordered some fentanyl patches new with pain meds evaluate for rehab
--- NOTE | 2023-12-28 12:15 | PN ---
Subjective: The patient was seen at [facility] at [facility] in [place]. The patient is in room 207. His daughter is in the room with him. He is alert, awake, able to answ er questions. Denies any significant discomfort. He is doing well today. Objective: Vital signs: His blood pressure is 131/69, pulse is 70, respirations around 18, O2 sats are 98% on room air. Lungs: Clear to auscultation. Abdomen: Soft. He does have a wound VAC in place. He does have an ostomy in place as well. Extremities: Revealed trace edema. Heart: Sounds are regular. Laboratory Data: Reviewed. Labs show WBC count of 3.8, hemoglobin stable at 8.5, hematocrit 24.9, p latelet counts of 89. This is lab work from December 26. Sodium 133, potassium 3.9, chloride 106, bica rb 24, BUN 37, creatinine 1.13. Calcium has been running low but relatively stable. Calcium is abou t 6.2, magnesium 1.8. Assessment And Plan: The patient with acute kidney injury, mild hypertension, hypovolemia. At this point, significantly improved. Creatinine level is now improving down to 1.13 and has been stable fr om last check, monitoring mainly for the electrolytes. Calcium has been on the lower side. He is ge tting calcium replacement. We will increase Os-Matheus to 3 times a day. Repeat labs ordered for tomorr ow. Discussed with primary nurse and also discussed the plan with Dr. Rich. /PETER Voice ID: [id number] Report ID: [id number]
[2023-12-28] MEDS: HYDROMORPHONE HCL 2 MG/ML inj IV PRN (12:31)
[2023-12-28] MEDS: CALCIUM CARBONATE 500 MG TAB PO SCH (12:32)
--- NOTE | 2023-12-28 14:36 | PN ---
Date of Progress Note: 12/28/2023 Subjective: Seen by bedside, doing clinically well. No chest pain. Review of Systems: No chest pain, shortness of breath, orthopnea, cough. No nausea, vomiting, diarrhea. All systems re viewed are negative. Generally he is very weak. Physical Examination: Vital Signs: Reviewed. Head and Neck: Pupils are equal, reactive to light. Intact eye movements. No JVD. No cervical. Neck: Supple. Thyroid is not enlarged. Lungs: Clear to auscultation bilaterally. No rhonchi, rales, or crackles. No accessory muscle use. Heart: Regular rate and rhythm. No extra sounds. Abdomen: Soft, nontender. Bowel sounds positive. No organomegaly. No masses or hernia. No rigidi ty or rebound. Extremities: No clubbing, cyanosis. Intact pulses. Skin: No rash. Neurologic: Alert, awake, no acute focal deficits appreciated. Lymph nodes: No cervical or axillar y lymphadenopathy. Investigations: Labs reviewed. Assessment/recommendations: 1.ST-elevation myocardial infarction, status post successful multiple PCIs, doing clinically well. Continue current management. 2.Dyslipidemia. Continue Lipitor. 3.Ventricular tachycardia. I will start him on metoprolol 12.5 mg twice a day. SR/MODL Voice ID: [id number] Report ID: [id number]
[2023-12-28] MEDS: MAGIC MOUTHWASH 180 ML BTL PO PRN (17:25)
--- NOTE | 2023-12-28 18:42 | PN ---
Date of Progress Note: 12/28/2023 Diagnoses: Perforated diverticulitis, perforated viscus with intraabdominal abscess, bowel resection , and end colostomy. Subjective: The patient is doing good, tolerating diet. The wound VAC has been in place. Objective: Vital Signs: Reviewed. Chest: Clear. Abdomen: Soft and depressible. Ostomy viable and intact. Wound with the wound VAC. Extremities: Good capillary refill. Plan: Continue medical care from the surgical standpoint. When he gets discharged, we would [facility] or my office, whatever is easier for him for continuation of car e in the midline incision and then after that, plan for the future reversal of colostomy in the next few months. LUANN/PETER Voice ID: [id number] Report ID: [id number]
[2023-12-28] MEDS: METOPROLOL TAR 25 MG TAB PO SCH (20:42)
[2023-12-29 06:49] LABS: Absolute Eosinophils 0.3 K/uL (0-0.5); Absolute Lymphocytes (CBC) 0.3 K/uL (0.7-4.9); Absolute Monocytes 0.9 K/uL (0.1-1.3); Absolute Neutrophil 3.6 K/uL (1.8-8.0); Basophils % 0.6 % (0-1.3); Eosinophils % 5.1 % (0-4.4); Hematocrit 19.4 % (39.6-49.0); Hemoglobin 6.6 g/dL (13.6-17.9); Lymphocytes % 5.5 % (15.3-44.8); MCH 29.7 pg (27.0-35.0); MCHC 33.9 g/dL (32.0-36.0); MCV 87.6 fL (80-100); MPV 9.2 fL (7.6-11.3); Monocytes % 17.5 % (3.3-12.3); Neutrophils % 71.3 % (41.7-73.7); Nucleated Red Blood Cells % 0.1 % (0-0); Platelets 172 thou/uL (152-406); RBC Red Blood Cell Count 2.22 M/uL (4.33-5.43); Red Cell Distribution Width 17.1 % (12.1-15.2)
[2023-12-29 06:59] LABS: Anion Gap 10.7 mEq/L (5.0-15.0); Magnesium 2.6 mg/dL (1.6-2.4); Potassium 5.7 mEq/L (3.5-5.1)
[2023-12-29 08:35] LABS: Anisocytosis 2+; Blood Morphology Comment NOTED (NOT SEEN); Hypochromasia 1+; Platelet Estimate ADEQ; White Blood Cell Scan OK (OK)
--- NOTE | 2023-12-29 08:42 | P.PN ---
Subjective Date of Service: 12/29/23 Chief Complaint: Anemia worsening renal function Patient's labs are now abnormal has been a decline in his hemoglobin worsening renal function still has some abdominal discomfort but no bleeding noted in the colostomy still has abdominal tenderness Review of Systems General: Weakness Gastrointestinal: Nausea, Abdominal Pain Physical Examination - Vital Signs Temperature: 96.8 F Blood Pressure: 120/60 Pulse: 70 Respirations: 19 Pulse Ox (%): 98 - Physical Exam General: Alert, Moderate distress Respiratory: Clear to auscultation bilaterally Cardiovascular: No edema, Regular rate/rhythm, Normal S1 S2 Gastrointestinal: Normal bowel sounds, Non-distended, Tenderness (Generalized tenderness) Musculoskeletal: No clubbing, No swelling - Studies Medications List Reviewed: Yes Assessment And Plan - Current Problems (Diagnosis) (1) Peritonitis Current Visit: Yes Status: Acute Plan: Patient still has abdominal tenderness no bleeding positive bowel sounds still has some abdominal discomfort (2) Anemia Current Visit: Yes Status: Acute Plan: Patient has become anemic overnight obvious bleeding liver function is also worse will transfuse 2 units may be all prerenal Lovenox discontinued Qualifiers: Bone marrow failure anemia type: unspecified bone marrow failure
[2023-12-29] MEDS: SODIUM ZIRCONIUM CYCLOSILICATE 10 GM/PKT PO ONE (13:28)
--- NOTE | 2023-12-29 13:49 | PN ---
Date of Progress Note: 12/29/2023 Subjective: The patient was seen in room 204 at [facility] in [place]. The patient is alert, awake. Denies any nausea, vomiting. States he is feeling okay. Has not noticed any bleed ing. His lab work does show significant drop in his hemoglobin. Primary team is aware and blood tra nsfusions have been ordered by Dr. Rich. The patient's sodium was 128, potassium was 5.7. Also his BUN and creatinine have jumped up to 81 and 2.61. Patient did not have any lab work yesterday, b ut it seems that since December 26, this is an increase. Patient has low blood pressure as well with bl ood pressure systolic reading in 110. Objective: Vital Signs: 110/61, pulse 65, respirations around 14 to 16 and comfortable, afebrile, O 2 sats are 95% to 100% on room air. Lungs: Clear to auscultation. Abdomen: Soft. Ostomy bag and wound looks okay. Extremities: The patient has no swelling in his lower extremities. Lungs: Clear. Heart: Sounds are regular. Laboratory Data: Reviewed. Labs showed WBC count of 5.1, hemoglobin 6.6, hematocrit 19.4, platelet count 172. Sodium 128, potassium 5.7, chloride 101, bicarb is 22, BUN 81, creatinine 2.61, calcium l evel 6.4. Medications: Reviewed. Assessment And Plan: Patient with acute kidney injury on chronic kidney disease, question volume aníbal fts, question secondary to anemia and drop in hemoglobin. Primary team are aware. Blood transfusion s have been ordered. Should improve with blood transfusions. Also patient has been getting electrol ytes with peripheral nutrition and this may need to be adjusted if potassium stays up. However, we w ill give a dose of Lokelma now and we will check lab work tomorrow. Recommend until patient is stabilized to continue checking lab work on a daily basis. /PETER Voice ID: [id number] Report ID: [id number]
[2023-12-29 17:19] LABS: Anion Gap 14.9 mEq/L (5.0-15.0)
[2023-12-29 17:35] LABS: Potassium 7.9 mEq/L (3.5-5.1)
[2023-12-29] MEDS: AMINO ACIDS 5 %/DEXTROSE 20 % 2,000 ML IV SCH (17:52)
[2023-12-29 17:55] LABS: Hematocrit 24.5 % (39.6-49.0); Hemoglobin 8.1 g/dL (13.6-17.9); MCHC 33.1 g/dL (32.0-36.0); MCV 87.8 fL (80-100); MPV 9.2 fL (7.6-11.3); Platelets 173 thou/uL (152-406); RBC Red Blood Cell Count 2.79 M/uL (4.33-5.43); Red Cell Distribution Width 17.2 % (12.1-15.2)
[2023-12-29 18:26] LABS: Anion Gap 12.4 mEq/L (5.0-15.0)
[2023-12-29 18:27] LABS: Potassium 6.4 mEq/L (3.5-5.1)
[2023-12-29] MEDS: D50W 25 GM/50 ML SYRINGE IV ONE (19:02)
[2023-12-29] MEDS: CALCIUM GLUC 10% INJ 4.65 MEQ in NA CHLORIDE 0.9% 100 ML IV ONE ×2 (19:02→20:54)
[2023-12-29] MEDS ORDERED: D10W 125 ML IV PRN (19:12)
[2023-12-29] MEDS: ALBUTEROL 2.5 MG/3 ML NEB SOL NEB ONE (19:50)
[2023-12-29] MEDS: D5 0.9 NS 1,000 ML IV ONE (20:35)
[2023-12-29] MEDS: CALCIUM GLUCONATE 1 GM IVPB 1 GM/50 ML BAG IV ONE ×2 (20:57→21:06)
[2023-12-30 00:51] LABS: Absolute Eosinophils 0.2 K/uL (0-0.5); Absolute Lymphocytes (CBC) 0.3 K/uL (0.7-4.9); Absolute Monocytes 0.8 K/uL (0.1-1.3); Absolute Neutrophil 3.5 K/uL (1.8-8.0); Basophils % 0.3 % (0-1.3); Eosinophils % 3.5 % (0-4.4); Hematocrit 24.4 % (39.6-49.0); Hemoglobin 8.3 g/dL (13.6-17.9); Lymphocytes % 5.7 % (15.3-44.8); MCH 29.2 pg (27.0-35.0); MCHC 33.9 g/dL (32.0-36.0); MCV 86.2 fL (80-100); Monocytes % 16.3 % (3.3-12.3); Neutrophils % 74.2 % (41.7-73.7); Platelets 178 thou/uL (152-406); RBC Red Blood Cell Count 2.83 M/uL (4.33-5.43); Red Cell Distribution Width 17.2 % (12.1-15.2)
[2023-12-30 01:10] LABS: Anion Gap 12.8 mEq/L (5.0-15.0)
[2023-12-30 01:12] LABS: Potassium 6.8 mEq/L (3.5-5.1)
[2023-12-30] MEDS: D5 0.9 NS 1,000 ML IV SCH ×2 (02:00→11:38)
[2023-12-30] MEDS: CALCIUM GLUC 10% INJ 4.65 MEQ in NA CHLORIDE 0.9% 100 ML IV ONE (02:23)
[2023-12-30] MEDS: CALCIUM GLUCONATE 1 GM IVPB 1 GM/50 ML BAG IV ONE (02:24)
[2023-12-30] MEDS: SODIUM ZIRCONIUM CYCLOSILICATE 10 GM/PKT PO ONE (02:31)
[2023-12-30] MEDS: D50W 25 GM/50 ML SYRINGE IV ONE (02:32)
[2023-12-30] MEDS: FUROSEMIDE 20 MG/ 2ML VIAL IV ONE (02:34)
[2023-12-30] MEDS: ALBUTEROL 2.5 MG/3 ML NEB SOL NEB ONE (02:55)
[2023-12-30 07:19] LABS: Hematocrit 24.2 % (39.6-49.0); MCHC 33.2 g/dL (32.0-36.0); MCV 87.5 fL (80-100); MPV 8.5 fL (7.6-11.3); Platelets 198 thou/uL (152-406); RBC Red Blood Cell Count 2.77 M/uL (4.33-5.43); Red Cell Distribution Width 17.1 % (12.1-15.2)
[2023-12-30 07:26] LABS: Anion Gap 8.7 mEq/L (5.0-15.0); Magnesium 2.6 mg/dL (1.6-2.4); Phosphorus 7.1 mg/dL (2.5-4.9)
[2023-12-30 07:27] LABS: Potassium 6.7 mEq/L (3.5-5.1)
--- NOTE | 2023-12-30 08:18 | RAD REPORT ---
EXAM DESCRIPTION: US - Renal Ultrasound-Complete - 12/30/2023 7:41 am CLINICAL HISTORY: acute on chronic renal failure COMPARISON: Abdomen Exam Complete dated 12/16/2023 FINDINGS: Both kidneys are normal in size, shape and echotexture. The right kidney measures 12.9 x 6.8 x 7.6 cm. No hydronephrosis, focal mass or perinephric fluid. The left kidney measures 12.9 x 7.0 x 5.2 cm. No hydronephrosis, focal mass or perinephric fluid. 3.2 cm benign-appearing cyst. The urinary bladder is incompletely distended without gross abnormality seen. IMPRESSION: 3 cm benign-appearing left renal cysts, otherwise negative study
--- NOTE | 2023-12-30 08:42 | P.PN ---
Subjective Date of Service: 12/30/23 Chief Complaint: Anemia worsening renal function Patient is doing better today less some abdominal discomfort denies any bleeding no new complaints feels a little weak Review of Systems General: Weakness Respiratory: Shortness of Breath Physical Examination - Vital Signs Temperature: 97.8 F Blood Pressure: 101/61 Pulse: 72 Respirations: 18 Pulse Ox (%): 97 - Physical Exam General: Alert, In no apparent distress, Oriented x3 HEENT: Atraumatic, Other Cardiovascular: No edema, Regular rate/rhythm, Normal S1 S2 Gastrointestinal: Tenderness (Mild generalized tenderness no rebound no distention positive bowel sounds) - Studies Medications List Reviewed: Yes Assessment And Plan - Current Problems (Diagnosis) (1) Anemia Current Visit: Yes Status: Acute Plan: Patient's hemoglobin is stable continue to monitor no bleeding noted Qualifiers: Bone marrow failure anemia type: unspecified bone marrow failure (2) Acute on chronic renal failure Current Visit: Yes Status: Acute Plan: Patient's renal function is worsening renal ultrasound is unremarkable of ordered a urinalysis discontinue meropenem for the possibility of interstitial nephritis monitor potassium patient was given some Lokelma repeat basic metabolic profile at noon today patient is being followed by nephrology continue with physical therapy additional electrolytes are removed from TPN
--- NOTE | 2023-12-30 10:34 | P.PN ---
Date of Service: 12/30/23 Vital Signs Temp Pulse Resp BP Pulse Ox 97.8 F 72 18 101/61 97 12/30/23 08:44 12/30/23 08:44 12/30/23 08:44 12/30/23 08:44 12/30/23 08:44 Medications Hydrocodone Bitart/Acetaminophen (Hydrocodone/Apap 10/325 Tab) 1 tab PO Q6H PRN PRN Reason: Pain scale 5-7 (Moderate) Last Admin: 12/30/23 02:30 Dose: 1 tab Aspirin (Aspirin 81 Mg Chewable Tablet) 81 mg PO DAILY [facility] Last Admin: 12/30/23 08:38 Dose: 81 mg Calcium Carbonate/Glycine (Calcium Carbonate 500 Mg Tab) 500 mg PO TIDWM [facility] Diphenhydr/Magaldrate/Simeth/Lidoca (Magic Mouthwash 180 Ml Btl) 15 ml PO QID PRN PRN Reason: SORE THROAT Last Admin: 12/29/23 21:04 Dose: 15 ml Enteral Nutritional Formula (Nepro Shake 237 Ml Can) 240 ml PO TID [facility] Fentanyl (Fentanyl 25 Mcg/Patch) 25 mcg TD EVERY 3RD DAY [facility] Last Admin: 12/28/23 09:09 Dose: 25 mcg Furosemide (Furosemide 20 Mg/ 2ml Vial) 20 mg IV 1X ONE Stop: 12/30/23 10:27 Hydromorphone HCl (Hydromorphone Hcl 2 Mg/Ml Inj) 2 mg IV Q4H PRN PRN Reason: Pain scale 8-10 (Severe) Last Admin: 12/30/23 08:41 Dose: 2 mg Sodium Chloride (Sodium Chloride) 250 mls @ 0 mls/hr IV .Q0M [facility] Last Admin: 12/23/23 06:13 Dose: 250 mls AMINO ACIDS 5 %/DEXTROSE 20 % (Clinimix 5%-20% Solution) 2,000 mls @ 70 mls/hr IV [id number] [facility] Last Admin: 12/29/23 17:52 Dose: 2,000 mls Multivitamins 10 ml/ AMINO ACIDS 5 %/DEXTROSE 20 %/ Fat Emulsion Intravenous 2,260 mls @ 70 mls/hr IV [id number] [facility] Dextrose (Dextrose 10% Water Iv Soln.) 125 mls @ 0 mls/hr IV PRN PRN; Protocol PRN Reason: HYPOGLYCEMIA Sodium Chloride (Sodium Chloride) 250 mls @ 0 mls/hr IV 1X ONE Stop: 12/30/23 10:28 Metoprolol Tartrate (Metoprolol Tar 25 Mg Tab) 12.5 mg PO BID 6AM 6PM [facility] Last Admin: 12/30/23 06:00 Dose: Not Given Ondansetron HCl (Ondansetron 4 Mg/2 Ml Vial) 4 mg IV Q6HP PRN PRN Reason: NAUSEA / VOMITING Pantoprazole Sodium (Pantoprazole 40 Mg Inj) 40 mg IVP DAILY [facility] Last Admin: 12/30/23 08:38 Dose: 40 mg Sodium Chloride (Sodium Chloride 0.9% 10ml Inj) 10 ml IV UD PRN PRN Reason: Diluant Ticagrelor (Ticagrelor 90 Mg Tablet) 90 mg PO BID [facility] Last Admin: 12/30/23 08:38 Dose: 90 mg Microbiology Results 12/19/23 18:50 Blood - Blood Aerobic Blood Culture - Final No growth in 5 days. 12/19/23 18:50 Blood - Blood Anaerobic Blood Culture - Final No growth in 5 days. 12/19/23 18:34 Blood - Blood Aerobic Blood Culture - Final No growth in 5 days. 12/19/23 18:34 Blood - Blood Anaerobic Blood Culture - Final No growth in 5 days. Assessment/ Plan: Nephrology Progress Note No Dyspnea No Chest Pain Anorexia No Acute Events Overnight Vital Signs, Medications, Blood Work, and Imaging reviewed in the chart NAD. NCAT. MMM. Neck Supple. Normal Respiratory Effort/ CTA. RRR. Abd Tender with wound vac. No C/C. Hip Edema trace. No Rash. AAO. Normal Speech. Assessment & Plan Stage II ARSALAN suspicious for ATN -No NSAIDs -Insert fong now for accurate I/Os and urine chemistries Hyponatremia -Continue IVF with NS Hyperkalemia -Low potassium diet -Lokelma prn -Kayexalate as ordered Hypocalcemia Hyperphosphatemia -Calcium with meals Orthostatic Hypotension -NS Bolus X2 -Continue IVF Anemia in chronic illness -PRBC prn -Retacrit X1 Surgery following for perforation of the intestine Hospitalist notes reviewed Case reviewed with hospitalist team Addendum: Repeat blood work demonstrated Stage III ARSALAN and Hyperkalemia. Surgery consulted for a non-tunneled HD CVC. Acute HD ordered. Greater than 30min patient care
[2023-12-30] MEDS ORDERED: FUROSEMIDE 20 MG/ 2ML VIAL IV ONE (11:00)
[2023-12-30] MEDS: EPOETIN ALFA-EPBX 10,000 UNIT/ML VIAL SQ ONE (11:35)
[2023-12-30] MEDS: SOD POLYSTYREN SUL 15 GM/60 ML UCUP PO ONE ×2 (11:35→16:05)
[2023-12-30] MEDS: CALCIUM CARBONATE 500 MG TAB PO SCH (11:35)
[2023-12-30] MEDS: NA CHLORIDE 0.9% 250 ML IV ONE ×2 (11:36→16:05)
--- NOTE | 2023-12-30 11:46 | P.PN ---
Subjective Date of Service: 12/30/23 Chief Complaint: Anemia worsening renal function Subjective: No new changes (Patient complain of bilateral hip pain.), No C/O voiced, Tolerating diet, Ambulating, Improving Review of Systems 10-point ROS is otherwise unremarkable Physical Examination - Vital Signs Temperature: 97.8 F Blood Pressure: 101/61 Pulse: 72 Respirations: 18 Pulse Ox (%): 97 - Physical Exam General: Alert, In no apparent distress HEENT: Atraumatic, PERRLA, EOMI Neck: Supple, JVD not distended Respiratory: Clear to auscultation bilaterally, Normal air movement Cardiovascular: Regular rate/rhythm, Normal S1 S2 Gastrointestinal: Normal bowel sounds, No tenderness Musculoskeletal: No tenderness Integumentary: No rashes Neurological: Normal speech, Normal tone, Normal affect Lymphatics: No axilla or inguinal lymphadenopathy - Studies Medications List Reviewed: Yes Assessment And Plan - Current Problems (Diagnosis) (1) STEMI (ST elevation myocardial infarction) Current Visit: Yes Status: Acute Plan: Patient developed VT and ST elevation GA after Lapratomy, EKG shown ST elevation anterolateral leads so was taken emergently to medical lab director and multiple stents were placed. ASA 81 mg daily Brilinta 90 mg po BID Lipitor 40 mg daily Cardiology will sign off, please call if any questions or concerns. (2) Shock Current Visit: Yes Status: Acute Plan: most likely secondary to recent lapratomy and peritonitis and bleeding, BP has been more stable, off pressors, continue to monitor appreciate surgical team input. Echo reviewed. (3) Perforated bowel Current Visit: Yes Status: Acute Plan: appreciate surgical team input and follow up.
[2023-12-30 13:01] LABS: Anion Gap 12.5 mEq/L (5.0-15.0)
[2023-12-30 13:06] LABS: Potassium 7.5 mEq/L (3.5-5.1)
[2023-12-30] MEDS: NEPRO SHAKE 237 ML CAN PO SCH (13:13)
[2023-12-30] MEDS ORDERED: NA CHLORIDE 0.9% 1,000 ML IV PRN (15:40)
[2023-12-30] MEDS ORDERED: MANNITOL 25% 12.5 GM/50 ML VIAL IV PRN (15:40)
[2023-12-30] MEDS: AMINO ACIDS 5 %/DEXTROSE 20 % 2,000 ML, Lipids 20% 250 ML with MULTIVITAMINS INJ 10 ML IV SCH (17:14)
[2023-12-30 18:14] LABS: Specific Gravity 1.007 (1.005-1.030); Sqamous Epithelial <5 /HPF (None Seen); Urine Bacteria <20 /HPF (<20); Urine Bilirubin NEGATIVE (Negative); Urine Blood 3+ (OVER) (Negative); Urine Clarity Extremely Turbid (Clear); Urine Color Light-Brown (Yellow); Urine Culture Reflex Order REFLEXED; Urine Glucose NEGATIVE (Negative); Urine Ketones NEGATIVE (Negative); Urine Micro Reflex YN NO BILL MICROSCOPIC; Urine Mucus Slight /HPF (None Seen); Urine Nitrite NEGATIVE (Negative); Urine Protein TRACE (Negative); Urine RBC >50 /HPF (None Seen); Urine Urobilinogen Normal (Normal)
[2023-12-30 18:28] LABS: HBsAG Nonreactive Report Report; Hepatitis B Core IgM Nonreactive (Nonreactive); Hepatitis B Surface Ab - Quant 3.81 mIU/mL (<8.0); Hepatitis B surface AG Interp. Nonreactive (Nonreactive)
[2023-12-30 21:32] LABS: UR MICROALBUMIN 5.8 mg/dL (< 1.9); UR PROTEIN 54.3 mg/dL (<11.9)
[2023-12-30 21:33] LABS: UR CREAT < 18.0 mg/dL (20-370)
--- NOTE | 2023-12-31 03:41 | OP ---
Date of Procedure: 12/30/2023 Surgeon: Fred Moore MD Preoperative Diagnosis: Renal insufficiency. Postoperative Diagnosis: Renal insufficiency. Procedures: 1.Ultrasound of the right femoral region. 2.Placement of Mahurkar-Jose Elias hemodialysis catheter. Anesthesia: Local. Complications: None. Indications: This is a case of a 68-year-old patient, known by us, due to history of perforated visc us, on chemotherapy for metastatic cancer. Seemed to have also renal insufficiency, so today this af ternoon an emergent hemodialysis catheter was requested by the primary doctor and renal service. The patient was fully explained, and the family, the benefits, alternatives, and risks of hemodialysis c atheter placement which include, but not limited to, infection, bleeding, damage to adjacent structur es, anesthesia complication, hematomas, bleeding, SD, even . He also understands this may not r elieve symptoms. He might need more than one surgical intervention. We understand at this moment he is also on blood thinners due to cardiac event, so once again there is increased risk of bleeding an d hematoma. He understands that, but at the same time with a potassium of 7 and unable to control th at medically, he understands it is an emergency, so we will proceed with it. Procedure In Detail: The patient was brought to a supine position. Right femoral and abdomen were p repped and draped in usual sterile fashion. We used ultrasound to the right area to identify the rig ht vein to make sure it is compressible. At that moment, using that guidance, we proceeded to put an 18-gauge needle in the right femoral vein at the first attempt. Guidewire was passed through, needl e was removed, serial dilators were placed until we had the Mahurkar catheter placed in and the guide wire was removed. This was done using Seldinger technique. The Mahurkar placed shows excellent back flow and inflow, heparinized, and secured in place with 3-0 nylon and sterile dressings on top. The patient tolerated procedure well. At the end of the case, there was no bleeding. There were no ashleigh bharti. From here, the patient will go for emergent surgery. The abdomen at this moment is soft and depressible. Wound VAC intact. Ostomy viable. MILLY minimal drainage. HM/MODL Voice ID: [id number] Report ID: [id number]
[2023-12-31 05:14] VITALS: BMI 33.0
[2023-12-31 06:04] LABS: Absolute Eosinophils 0.1 K/uL (0-0.5); Absolute Lymphocytes (CBC) 0.2 K/uL (0.7-4.9); Absolute Monocytes 0.3 K/uL (0.1-1.3); Absolute Neutrophil 2.5 K/uL (1.8-8.0); Basophils % 0.3 % (0-1.3); Hematocrit 22.4 % (39.6-49.0); Hemoglobin 7.7 g/dL (13.6-17.9); Lymphocytes % 5.6 % (15.3-44.8); MCHC 34.6 g/dL (32.0-36.0); MCV 86.9 fL (80-100); MPV 8.2 fL (7.6-11.3); Monocytes % 11.2 % (3.3-12.3); Neutrophils % 80.9 % (41.7-73.7); Nucleated Red Blood Cells % 0.3 % (0-0); Platelets 204 thou/uL (152-406); RBC Red Blood Cell Count 2.58 M/uL (4.33-5.43); Red Cell Distribution Width 17.1 % (12.1-15.2)
[2023-12-31 06:18] LABS: AST/SGOT 16 U/L (15-37); Albumin 1.5 g/dL (3.4-5.0); Albumin/Globulin Ratio 0.4 (1.1-1.8); Alkaline Phosphatase 122 U/L (45-117); Anion Gap 8.9 mEq/L (5.0-15.0); BUN Blood Urea Nitrogen 49 mg/dL (7-18); Bicarbonate 26 mEq/L (21-32); Bilirubin Total 0.6 mg/dL (0.2-1.0); Globulin 3.7 g/dL (2.3-3.5); Glomerular Filtration Rate 34 ml/min (=/>90); Glucose Level 173 mg/dL (74-106); Magnesium 1.9 mg/dL (1.6-2.4); Phosphorus 4.4 mg/dL (2.5-4.9); Potassium 3.9 mEq/L (3.5-5.1); Protein, Total 5.2 g/dL (6.4-8.2); Sodium Level 135 mEq/L (136-145); Uric Acid 3.3 mg/dL (3.5-7.2)
[2023-12-31 06:20] LABS: ALT/SGPT < 14 U/L (16-61)
--- NOTE | 2023-12-31 06:51 | P.PN ---
Date of Service: 12/31/23 Subjective: Feeling better today had acute HD yesterday ~2.6L output overnight from fong appetite slowly improving able to get out of bed yesterday ROS: 10 point ROS as noted above, otherwise negative Physical Exam: GEN: Alert, oriented, NAD HEENT: Normal conjunctiva, sclera anicteric CV: Regular rate and rhythm, trace pedal edema Pulm: Nonlabored respirations on RA, diminished ABD: dressing in place, colostomy bag in place Neuro: Normal speech, normal affect Fong in place MILLY drain x2 in place colostomy bag in place vitals reviewed Problem List: Perforated diverticulitis, s/p sigmoid bowel resection with end colostomy (12/19) intraabdominal abscess s/p evacuation (12/19) Ventral hernia 3cm s/p repair (12/19) Shock - multifactorial - sepsis/hypovolemic; resolved acute blood loss anemia ARSALAN Hyponatremia, Hypokalemia, Hypocalcemia STEMI, Severe CAD, s/p PCI x3 (12/19) Multiple myeloma on chemotherapy Generalized weakness Thrombocytopenia Perforated diverticulitis, s/p sigmoid bowel resection with end colostomy (12/19) intraabdominal abscess s/p evacuation (12/19) Ventral hernia 3cm s/p repair (12/19) Shock - multifactorial - sepsis/hypovolemic; resolved Came to ER per patients oncologist due to outpatient labs with electrolyte abnormalities. Presented with epigastric pain, generalized weakness, poor PO intake over the past weeks. Dr. Moore, general surgery consulted s/p sigmoid bowel resection with end colostomy, evacuation of intraabdominal abscess, and ventral hernia repair (12/19) will need to follow up at wound healing center for continued management. +tentative plan for reversal of colostomy in the next few months MILLY drain x2 in place IV Protonix BID wound cx (12/18): E. coli ESBL urine cx (12/29): pending completed ~10 days of merrem / vanc (12/19-12/29) ID following on TPN; plan to wean once PO intake improves - today vs tomorrow acute blood loss anemia pt with unknown IgG antibody - lab report reaction is effect of his MM medication and not true allergy currently on chemo - is immunosupressed s/p 3 unit irradiated PRBCs (12/20 & 12/21, 12/25) Continue to monitor H&H. ARSALAN Hyponatremia, Hypokalemia, Hypocalcemia Nephrology consulted renal u/s (12/29): 3.2 cm benign-appearing left renal cyst otherwise negative General surgery consulted for non-tunneled HD CVC; placed 12/29 acute HD per nephrology - last received HD 12/29 Fong initally dc'd 12/25-12/26. reinserted 12/29 creatinine 4.17 -> 2.05 (12/30) continue to monitor renal function. Monitor electrolytes. replete as needed on TPN (12/21-), adjust IVF STEMI, Severe CAD, s/p PCI x3 (12/19) EKG with ST elevations off levophed since 12/21 am Cardiology is following s/p LHC found to have Severe mid LAD disease (~80%) and diagonal disease (80- 90%), s/p PCI to LAD and diagonal Significant mid circ/proximal OM1 disease (90%), s/p PCI Severe proximal RPLV disease (~80%) echo (12/22): 55-60% EF, poor study, grade 1 diastolic dysfunction, mild MR/TR continue aspirin 81 mg, brilinta, metoprolol 12.5 BID Multiple myeloma on chemotherapy Generalized weakness Thrombocytopenia Reports recent diagnosis of multiple myeloma. On chemotherapy weakness and thrombocytopenia likely secondary to cancer / chemo PT/OT/Dietitian consult s/p 1 platelet transfusion (12/19) s/p 2 unit irradiated plt (12/21, 12/22) Daily labs Code: Full Dispo: inpatient rehab, pending stability and how long will need HD
--- NOTE | 2023-12-31 10:58 | P.PN ---
Date of Service: 12/31/23 Vital Signs Temp Pulse Resp BP Pulse Ox 97.3 F 74 14 116/50 L 99 12/31/23 08:00 12/31/23 10:00 12/31/23 10:00 12/31/23 10:00 12/31/23 10:00 Medications Hydrocodone Bitart/Acetaminophen (Hydrocodone/Apap 10/325 Tab) 1 tab PO Q6H PRN PRN Reason: Pain scale 5-7 (Moderate) Last Admin: 12/31/23 09:06 Dose: 1 tab Aspirin (Aspirin 81 Mg Chewable Tablet) 81 mg PO DAILY [facility] Last Admin: 12/31/23 08:06 Dose: 81 mg Calcium Carbonate/Glycine (Calcium Carbonate 500 Mg Tab) 500 mg PO TIDWM [facility] Last Admin: 12/31/23 08:06 Dose: 500 mg Diphenhydr/Magaldrate/Simeth/Lidoca (Magic Mouthwash 180 Ml Btl) 15 ml PO QID PRN PRN Reason: SORE THROAT Last Admin: 12/31/23 05:06 Dose: 15 ml Enteral Nutritional Formula (Nepro Shake 237 Ml Can) 240 ml PO TID [facility] Last Admin: 12/31/23 08:06 Dose: 240 ml Fentanyl (Fentanyl 25 Mcg/Patch) 25 mcg TD EVERY 3RD DAY [facility] Last Admin: 12/31/23 08:16 Dose: 25 mcg Heparin Sodium (Porcine) (Heparin 1,000 Unit/Ml Vial) 6,000 unit IV EVERY HD PRN PRN Reason: AFTER EACH Last Admin: 12/30/23 21:47 Dose: 6,000 unit Hydromorphone HCl (Hydromorphone Hcl 2 Mg/Ml Inj) 2 mg IV Q4H PRN PRN Reason: Pain scale 8-10 (Severe) Last Admin: 12/31/23 09:49 Dose: 2 mg Sodium Chloride (Sodium Chloride) 250 mls @ 0 mls/hr IV .Q0M [facility] Last Admin: 12/23/23 06:13 Dose: 250 mls AMINO ACIDS 5 %/DEXTROSE 20 % (Clinimix 5%-20% Solution) 2,000 mls @ 70 mls/hr IV [id number] [facility] Last Admin: 12/29/23 17:52 Dose: 2,000 mls Multivitamins 10 ml/ AMINO ACIDS 5 %/DEXTROSE 20 %/ Fat Emulsion Intravenous 2,260 mls @ 70 mls/hr IV [id number] [facility] Last Admin: 12/30/23 17:14 Dose: 2,260 mls Dextrose (Dextrose 10% Water Iv Soln.) 125 mls @ 0 mls/hr IV PRN PRN; Protocol PRN Reason: HYPOGLYCEMIA Dextrose/Sodium Chloride (D5w Ns 1-Liter Bag) 1,000 mls @ 125 mls/hr IV .Q8H [facility] Last Admin: 12/31/23 09:07 Dose: 1,000 mls Albumin Human (Albumin 25%) 50 mls @ 100 mls/hr IV EVERY HD KARLY Lactated Ringer's (Lactated Ringers) 1,000 mls @ 100 mls/hr IV .Q10H [facility] Mannitol (Mannitol 25% 12.5 Gm/50 Ml Vial) 12.5 gm IV EVERY HD PRN PRN Reason: Titrate to SBP (MUST DEFINE) Metoprolol Tartrate (Metoprolol Tar 25 Mg Tab) 12.5 mg PO BID 6AM 6PM [facility] Last Admin: 12/31/23 06:00 Dose: Not Given Ondansetron HCl (Ondansetron 4 Mg/2 Ml Vial) 4 mg IV Q6HP PRN PRN Reason: NAUSEA / VOMITING Pantoprazole Sodium (Pantoprazole 40 Mg Inj) 40 mg IVP DAILY [facility] Last Admin: 12/31/23 08:06 Dose: 40 mg Sodium Chloride (Sodium Chloride 0.9% 10ml Inj) 10 ml IV UD PRN PRN Reason: Diluant Ticagrelor (Ticagrelor 90 Mg Tablet) 90 mg PO BID [facility] Last Admin: 12/31/23 08:06 Dose: 90 mg Microbiology Results 12/19/23 18:50 Blood - Blood Aerobic Blood Culture - Final No growth in 5 days. 12/19/23 18:50 Blood - Blood Anaerobic Blood Culture - Final No growth in 5 days. 12/19/23 18:34 Blood - Blood Aerobic Blood Culture - Final No growth in 5 days. 12/19/23 18:34 Blood - Blood Anaerobic Blood Culture - Final No growth in 5 days. Assessment/ Plan: Nephrology Progress Note No Dyspnea No Chest Pain Acute HD yesterday No Acute Events Overnight Vital Signs, Medications, Blood Work, and Imaging reviewed in the chart NAD. NCAT. MMM. Neck Supple. Normal Respiratory Effort/ CTA. RRR. Abd Tender with wound vac. No C/C. Hip Edema trace. No Rash. AAO. Normal Speech. Assessment & Plan Stage III ARSALAN suspicious for ATN -No NSAIDs -Continue fong -HD CVC placed yesterday -HD prn Hyponatremia -Continue IVF with NS Hyperkalemia -Low potassium diet -Lokelma prn Hypocalcemia Hyperphosphatemia -Calcium with meals -Start Calcitriol Orthostatic Hypotension -Continue IVF Anemia in chronic illness -PRBC prn -Retacrit prn Surgery following for perforation of the intestine Hospitalist notes reviewed Case reviewed with Dr. Dennis
[2023-12-31] MEDS ORDERED: Ringers Lactate 1,000 ML IV SCH (11:00)
[2023-12-31] MEDS: CALCITROL 0.25 MCG CAP PO SCH (11:45)
--- NOTE | 2023-12-31 12:38 | PN ---
Subjective: The patient lying in the ICU bed 3, not in any acute cardiopulmonary distress. Feels mu ch better today. Had dialysis done first time yesterday. Objective: Vital Signs: Temperature 98, pulse 74, respirations 14, blood pressure 116/50. Lungs: Basal crackles. Heart: S1, S2. Regular. Abdomen: Soft. Bowel sounds present. Wound VAC in place. Extremities: Trace edema. Right-sided catheter noted. Laboratory Data: Shows WBC 3.1, hemoglobin 7.7, platelets 204. Chemistry shows sodium 135, BUN 49, creatinine 2. Micro data, no new growth. Assessment And Plan: Perforated diverticulitis, status post sigmoid bowel resection with end colosto my on 12/19, intraabdominal abscess. The patient was on IV antibiotic, which has been stopped. With significant history of multiple myeloma, on chemotherapy. Renal failure, on dialysis since yesterda y. Has improved urinary output since yesterday. Continue current treatment and monitor for signs of infection. Abdominal wound with the VAC in place. NF/MODL Voice ID: [id number] Report ID: [id number]
--- NOTE | 2023-12-31 13:20 | EKG ---
Test Date: 2023-12-30 Test Time: 14:54:54 Tower Control Operator: MEASUREMENT RESULTS: Intervals: Rate: 71 WV: 184 QRSD: 86 QT: 408 QTc: 443 [place]: P: 61 WV: 184 QRS: -41 T: 79 INTERPRETIVE STATEMENTS: Normal sinus rhythm Left axis deviation Low voltage QRS Abnormal ECG Compared to ECG 12/20/2023 06:12:35 Left-axis deviation now present Low QRS voltage now present Atrial premature complex(es) no longer present Aberrant conduction of supraventricular beat(s) no longer present ST (T wave) deviation no longer present Prolonged QT interval no longer present Myocardial infarct finding no longer present Electronically Signed On 12-31-23 13:18:06 CDT by Oni Greenfield
[2023-12-31 20:25] LABS: Hematocrit 20.2 % (39.6-49.0); Hemoglobin 6.8 g/dL (13.6-17.9)
[2024-01-01 05:35] LABS: Hematocrit 23.2 % (39.6-49.0); Hemoglobin 7.8 g/dL (13.6-17.9); MCH 29.2 pg (27.0-35.0); MCHC 33.8 g/dL (32.0-36.0); MCV 86.5 fL (80-100); Platelets 178 thou/uL (152-406); RBC Red Blood Cell Count 2.68 M/uL (4.33-5.43); Red Cell Distribution Width 16.6 % (12.1-15.2)
[2024-01-01 06:08] LABS: Sodium Level 135 mEq/L (136-145)
[2024-01-01 06:09] LABS: AST/SGOT 15 U/L (15-37); Albumin 1.4 g/dL (3.4-5.0); Albumin/Globulin Ratio 0.4 (1.1-1.8); Alkaline Phosphatase 121 U/L (45-117); Anion Gap 6.3 mEq/L (5.0-15.0); BUN Blood Urea Nitrogen 37 mg/dL (7-18); Bicarbonate 27 mEq/L (21-32); Bilirubin Total 0.6 mg/dL (0.2-1.0); Globulin 3.5 g/dL (2.3-3.5); Glomerular Filtration Rate 58 ml/min (=/>90); Glucose Level 177 mg/dL (74-106); Magnesium 1.3 mg/dL (1.6-2.4); Phosphorus 2.4 mg/dL (2.5-4.9); Potassium 3.3 mEq/L (3.5-5.1); Protein, Total 4.9 g/dL (6.4-8.2)
[2024-01-01 06:13] LABS: ALT/SGPT < 14 U/L (16-61)
--- NOTE | 2024-01-01 07:16 | P.PN ---
Date of Service: 01/01/24 Subjective: ~4L output from fong last 24 hours per EMR doesn't feel like anything is worse oozing blood at abdominal/surgical wound last night after wound vac change given 1 blood transfusion overnight appetite improving daily ROS: 10 point ROS as noted above, otherwise negative Physical Exam: GEN: Alert, oriented, NAD HEENT: Normal conjunctiva, sclera anicteric CV: Regular rate and rhythm, trace pedal edema Pulm: Nonlabored respirations on RA ABD: wound vac in place, some bloody output, colostomy bag in place Neuro: Normal speech, normal affect Fong in place MILLY drain x2 in place colostomy bag in place vitals reviewed Problem List: Perforated diverticulitis, s/p sigmoid bowel resection with end colostomy (12/19) intraabdominal abscess s/p evacuation (12/19) Ventral hernia 3cm s/p repair (12/19) Shock - multifactorial - sepsis/hypovolemic; resolved acute blood loss anemia ARSALAN Hyponatremia, Hypokalemia, Hypocalcemia STEMI, Severe CAD, s/p PCI x3 (12/19) Multiple myeloma on chemotherapy Generalized weakness Thrombocytopenia Perforated diverticulitis, s/p sigmoid bowel resection with end colostomy (12/19) intraabdominal abscess s/p evacuation (12/19) Ventral hernia 3cm s/p repair (12/19) Shock - multifactorial - sepsis/hypovolemic; resolved Came to ER per patients oncologist due to outpatient labs with electrolyte abnormalities. Presented with epigastric pain, generalized weakness, poor PO intake over the past weeks. Dr. Moore, general surgery consulted s/p sigmoid bowel resection with end colostomy, evacuation of intraabdominal abscess, and ventral hernia repair (12/19) will need to follow up at wound healing center for continued management. +tentative plan for reversal of colostomy in the next few months MILLY drain x2 in place IV Protonix BID wound cx (12/18): E. coli ESBL completed ~10 days of merrem / vanc (12/19-12/29) ID following dc TPN this afternoon if appetite continues to improve (12/21-12/31) Contract Administration Coordinator consulted acute blood loss anemia pt with unknown IgG antibody - lab report reaction is effect of his MM medication and not true allergy currently on chemo - is immunosupressed s/p 3 unit irradiated PRBCs (12/20 & 12/21, 12/25) hgb down to 6.8 (12/30) s/p 1 uPRBC overnight (12/30-12/31); repeat hgb up to 7.8 Continue to monitor H&H. plt ok, on DAPT ARSALAN Hyponatremia, Hypokalemia, Hypocalcemia Nephrology consulted renal u/s (12/29): 3.2 cm benign-appearing left renal cyst otherwise negative General surgery consulted for non-tunneled HD CVC; placed 12/29 acute HD per nephrology - last received HD 12/29 renal function improving Fong initally dc'd 12/25-12/26. reinserted 12/29 continue to monitor renal function. Monitor electrolytes. replete as needed STEMI, Severe CAD, s/p PCI x3 (12/19) EKG with ST elevations off levophed since 12/21 am Cardiology is following s/p LHC found to have Severe mid LAD disease (~80%) and diagonal disease (80- 90%), s/p PCI to LAD and diagonal Significant mid circ/proximal OM1 disease (90%), s/p PCI Severe proximal RPLV disease (~80%) echo (12/22): 55-60% EF, poor study, grade 1 diastolic dysfunction, mild MR/TR continue aspirin 81 mg, brilinta, metoprolol 12.5 BID Multiple myeloma on chemotherapy Generalized weakness Thrombocytopenia Reports recent diagnosis of multiple myeloma. On chemotherapy weakness and thrombocytopenia likely secondary to cancer / chemo PT/OT/Dietitian consult s/p 1 platelet transfusion (12/19) s/p 2 unit irradiated plt (12/21, 12/22) Daily labs Code: Full Dispo: inpatient rehab, pending stability and how long will need HD
[2024-01-01] MEDS: Magnesium Sulfate 2gm IVPB 2 G/50 ML BAG IV ONE ×2 (08:05→16:38)
[2024-01-01] MEDS: POTASSIUM CL SA 10 MEQ TAB PO ONE ×2 (08:05→16:38)
[2024-01-01] MEDS: POTASS/SODIUM PHOSPHATE 1 PKT POWD.PACK PO SCH (08:06)
[2024-01-01] MEDS: MAGNESIUM CHLORIDE 64 MG TAB PO SCH (10:35)
[2024-01-01] MEDS: CLOPIDOGREL 75 MG TABLET PO ONE (10:36)
[2024-01-01] MEDS: ENSURE MAX PROTEIN 330 ML LIQUID PO SCH (13:10)
[2024-01-01] MEDS: CALCIUM CARBONATE 500 MG TAB PO SCH (13:10)
--- NOTE | 2024-01-01 13:29 | PN ---
Subjective: Patient is feeling much better today. He is able to eat well. Denies any other problem . Had blood transfusion done 1 unit yesterday. Objective: Vital Signs: Temperature 97, pulse 73, respirations 14, blood pressure 114/54. Lungs: Basal crackles. Heart: S1, S2. Regular. Abdomen: Soft, nontender. Bowel sounds present. Abdominal wound noted. Extremity: Trace edema. Laboratory Data: Shows WBC 3.3, hemoglobin 7.8, platelets 178. Chemistry shows BUN of 37, creatinin e 1.2, better from before 2.05. Assessment And Plan: Abdominal wound with the extended-spectrum beta-lactamases Escherichia coli inf ection. Treatment has been completed. Patient with acute renal failure, which is improving. Multip le myeloma. Anemia of chronic disease. Continue supportive care and monitor for signs of infection. Continue wound VAC to the abdominal wound. NF/MODL Voice ID: [id number] Report ID: [id number]
[2024-01-01 16:04] LABS: Magnesium 1.3 mg/dL (1.6-2.4); Phosphorus 2.3 mg/dL (2.5-4.9); Potassium 3.3 mEq/L (3.5-5.1)
[2024-01-01] MEDS: CALCITROL 0.25 MCG CAP PO SCH (16:38)
[2024-01-01] MEDS: POTASSIUM PHOS IN 0.9 % NACL 15 MMOL/250 ML BAG IV ONE (16:38)
--- NOTE | 2024-01-01 18:11 | PN ---
Date of Progress Note: 01/01/2024 Reason For Service: Perforated diverticulum. Subjective: Patient doing well. No complaint. Tolerating the diet. Objective: Chest: Clear. Abdomen: Soft and depressible. Intact incisions. Wound VAC was replaced. Ostomy is functional and viable. Extremities: Good capillary refill. Dialysis catheter in place. Plan: Continue diet. When he gets discharged, follow up in my office. Continue wound care. LUANN/PETER Voice ID: [id number] Report ID: [id number]
--- NOTE | 2024-01-01 22:16 | P.PN ---
Date of Service: 01/01/24 Vital Signs Temp Pulse Resp BP Pulse Ox 97.5 F 69 16 126/57 L 98 01/01/24 16:00 01/01/24 18:00 01/01/24 19:53 01/01/24 18:00 01/01/24 19:53 Medications Hydrocodone Bitart/Acetaminophen (Hydrocodone/Apap 10/325 Tab) 1 tab PO Q6H PRN PRN Reason: Pain scale 5-7 (Moderate) Last Admin: 01/01/24 16:38 Dose: 1 tab Aspirin (Aspirin 81 Mg Chewable Tablet) 81 mg PO DAILY [facility] Last Admin: 01/01/24 08:05 Dose: 81 mg Calcitriol (Calcitrol 0.25 Mcg Cap) 0.5 mcg PO BIDWM [facility] Last Admin: 01/01/24 16:38 Dose: 0.5 mcg Calcium Carbonate/Glycine (Calcium Carbonate 500 Mg Tab) 500 mg PO TID [facility] Last Admin: 01/01/24 21:25 Dose: 500 mg Clopidogrel Bisulfate (Clopidogrel 75 Mg Tablet) 75 mg PO DAILY [facility] Diphenhydr/Magaldrate/Simeth/Lidoca (Magic Mouthwash 180 Ml Btl) 15 ml PO QID PRN PRN Reason: SORE THROAT Last Admin: 12/31/23 05:06 Dose: 15 ml Fentanyl (Fentanyl 25 Mcg/Patch) 25 mcg TD EVERY 3RD DAY [facility] Last Admin: 12/31/23 08:16 Dose: 25 mcg Heparin Sodium (Porcine) (Heparin 1,000 Unit/Ml Vial) 6,000 unit IV EVERY HD PRN PRN Reason: AFTER EACH Last Admin: 12/30/23 21:47 Dose: 6,000 unit Hydromorphone HCl (Hydromorphone Hcl 2 Mg/Ml Inj) 2 mg IV Q4H PRN PRN Reason: Pain scale 8-10 (Severe) Last Admin: 01/01/24 19:23 Dose: 2 mg Sodium Chloride (Sodium Chloride) 250 mls @ 0 mls/hr IV .Q0M [facility] Last Admin: 12/23/23 06:13 Dose: 250 mls Dextrose (Dextrose 10% Water Iv Soln.) 125 mls @ 0 mls/hr IV PRN PRN; Protocol PRN Reason: HYPOGLYCEMIA Dextrose/Sodium Chloride (D5w Ns 1-Liter Bag) 1,000 mls @ 125 mls/hr IV .Q8H [facility] Last Admin: 01/01/24 16:39 Dose: 1,000 mls Albumin Human (Albumin 25%) 50 mls @ 100 mls/hr IV EVERY HD [facility] Magnesium Chloride (Magnesium Chloride 64 Mg Tab) 64 mg PO BID [facility] Last Admin: 01/01/24 21:25 Dose: 64 mg Mannitol (Mannitol 25% 12.5 Gm/50 Ml Vial) 12.5 gm IV EVERY HD PRN PRN Reason: Titrate to SBP (MUST DEFINE) Metoprolol Tartrate (Metoprolol Tar 25 Mg Tab) 12.5 mg PO BID 6AM 6PM [facility] Last Admin: 01/01/24 18:16 Dose: 12.5 mg Ondansetron HCl (Ondansetron 4 Mg/2 Ml Vial) 4 mg IV Q6HP PRN PRN Reason: NAUSEA / VOMITING Pantoprazole Sodium (Pantoprazole 40 Mg Inj) 40 mg IVP DAILY [facility] Last Admin: 01/01/24 08:02 Dose: 40 mg Protein (Ensure Max Protein 330 Ml Liquid) 240 ml PO TID [facility] Last Admin: 01/01/24 21:00 Dose: 240 ml Sodium Chloride (Sodium Chloride 0.9% 10ml Inj) 10 ml IV UD PRN PRN Reason: Diluant Microbiology Results 12/19/23 18:50 Blood - Blood Aerobic Blood Culture - Final No growth in 5 days. 12/19/23 18:50 Blood - Blood Anaerobic Blood Culture - Final No growth in 5 days. 12/19/23 18:34 Blood - Blood Aerobic Blood Culture - Final No growth in 5 days. 12/19/23 18:34 Blood - Blood Anaerobic Blood Culture - Final No growth in 5 days. Assessment/ Plan: Nephrology Progress Note No Dyspnea No Chest Pain Feeling better with improving appetite Working with PT No Acute Events Overnight Vital Signs, Medications, Blood Work, and Imaging reviewed in the chart NAD. NCAT. MMM. Neck Supple. Normal Respiratory Effort/ CTA. RRR. Abd Tender with wound vac. No C/C. Hip Edema trace. No Rash. AAO. Normal Speech. Assessment & Plan Stage III ARSALAN suspicious for ATN -No NSAIDs -Continue fong -HD CVC placed 6-3-24 -HD prn Hyponatremia -Continue IVF with NS Hyperkalemia -Low potassium diet -Lokelma prn Hypocalcemia Hyperphosphatemia -Calcium bn meals -Increase Calcitriol Hypomagnesemia -Replete as ordered -Start SloMag bid Orthostatic Hypotension -Continue IVF Anemia in chronic illness -PRBC prn -Retacrit prn Surgery following for perforation of the intestine Hospitalist notes reviewed Case reviewed with Dr. Dennis
[2024-01-01] MEDS: NA CHLORIDE 0.9% 1,000 ML with POTASSIUM CL 10 MEQ IV SCH (23:00)
[2024-01-01] MEDS: KCL 20 MEQ/100 mL IVPB 100 ML IV SCH (23:45)
[2024-01-01] MEDS: NA CHLORIDE 0.9% 1,000 ML IV SCH (23:45)
[2024-01-02 01:00] LABS: Magnesium 1.3 mg/dL (1.6-2.4); Phosphorus 2.6 mg/dL (2.5-4.9); Potassium 3.9 mEq/L (3.5-5.1)
[2024-01-02] MEDS: Magnesium Sulfate 2gm IVPB 2 G/50 ML BAG IV ONE (01:30)
[2024-01-02 05:07] LABS: Absolute Eosinophils 0.2 K/uL (0-0.5); Absolute Lymphocytes (CBC) 0.4 K/uL (0.7-4.9); Absolute Monocytes 0.3 K/uL (0.1-1.3); Absolute Neutrophil 2.2 K/uL (1.8-8.0); Eosinophils % 5.1 % (0-4.4); Hematocrit 22.6 % (39.6-49.0); Hemoglobin 7.7 g/dL (13.6-17.9); Lymphocytes % 12.7 % (15.3-44.8); MCH 29.9 pg (27.0-35.0); MCHC 34.3 g/dL (32.0-36.0); MCV 87.2 fL (80-100); MPV 7.9 fL (7.6-11.3); Monocytes % 10.6 % (3.3-12.3); Neutrophils % 70.6 % (41.7-73.7); Platelets 165 thou/uL (152-406); RBC Red Blood Cell Count 2.59 M/uL (4.33-5.43); Red Cell Distribution Width 16.3 % (12.1-15.2)
[2024-01-02 05:48] LABS: Albumin 1.4 g/dL (3.4-5.0); Albumin/Globulin Ratio 0.4 (1.1-1.8); Anion Gap 4.9 mEq/L (5.0-15.0); Bilirubin Total 0.4 mg/dL (0.2-1.0); Globulin 3.5 g/dL (2.3-3.5); Magnesium 1.7 mg/dL (1.6-2.4); Potassium 3.9 mEq/L (3.5-5.1); Protein, Total 4.9 g/dL (6.4-8.2)
[2024-01-02] MEDS: MAGNESIUM SULFATE 1 gm IVPB 1 GM/100 ML BAG IV ONE (06:22)
[2024-01-02] MEDS: POTASSIUM PHOS IN 0.9 % NACL 15 MMOL/250 ML BAG IV ONE (06:22)
[2024-01-02] MEDS: ALBUMIN HUMAN 25% 100 ML IV SCH (08:00)
[2024-01-02] MEDS: CLOPIDOGREL 75 MG TABLET PO SCH (08:16)
[2024-01-02] MEDS: MAGNESIUM CHLORIDE 64 MG TAB PO SCH (08:16)
[2024-01-02] MEDS: ALBUMIN HUMAN 25% 50 ML IV SCH (08:17)
[2024-01-02] MEDS: NA CHLORIDE 0.9% 1,000 ML with POTASSIUM CL 10 MEQ IV SCH (08:17)
--- NOTE | 2024-01-02 08:39 | P.PN ---
Date of Service: 01/02/24 Subjective: feels a little better today appetite continues to improve. TPN weaned off yesterday ~3L output from fong last 24 hours breathing okay on room air no issues overnight Continues with pain, mostly in the lower abdomen/hips. ROS: 10 point ROS as noted above, otherwise negative Physical Exam: GEN: Alert, oriented, NAD HEENT: Normal conjunctiva, sclera anicteric CV: Regular rate and rhythm, trace pedal edema Pulm: Nonlabored respirations on RA ABD: wound vac in place, some bloody output, colostomy bag in place (functioning) Neuro: Normal speech, normal affect Fong in place MILLY drain x2 in place colostomy bag in place vitals reviewed Problem List: Perforated diverticulitis, s/p sigmoid bowel resection with end colostomy (12/19) intraabdominal abscess s/p evacuation (12/19) Ventral hernia 3cm s/p repair (12/19) Shock - multifactorial - sepsis/hypovolemic; resolved acute blood loss anemia ARSALAN Hyponatremia, Hypokalemia, Hypocalcemia STEMI, Severe CAD, s/p PCI x3 (12/19) Diastolic CHF Multiple myeloma on chemotherapy Generalized weakness Thrombocytopenia Perforated diverticulitis, s/p sigmoid bowel resection with end colostomy (12/19) intraabdominal abscess s/p evacuation (12/19) Ventral hernia 3cm s/p repair (12/19) Shock - multifactorial - sepsis/hypovolemic; resolved Came to ER per patients oncologist due to outpatient labs with electrolyte abnormalities. Presented with epigastric pain, generalized weakness, poor PO intake over the past weeks. Dr. Moore, general surgery consulted s/p sigmoid bowel resection with end colostomy, evacuation of intraabdominal abscess, and ventral hernia repair (12/19) will need to follow up at wound healing center for continued management. +tentative plan for reversal of colostomy in the next few months MILLY drain x2 in place IV Protonix BID wound cx (12/18): E. coli ESBL completed ~10 days of merrem / vanc (12/19-12/29) ID following TPN dc'd (12/21-12/31) Appetite continues to improve will work to decrease IV pain medication, lowered Dilaudid dose 01/01 acute blood loss anemia pt with unknown IgG antibody - lab report reaction is effect of his MM medication and not true allergy currently on chemo - is immunosupressed s/p 3 unit irradiated PRBCs (12/20 & 12/21, 12/25) s/p 1 uPRBC (12/31) Continue to monitor H&H. hgb stable, plt ok, on DAPT ARSALAN Hyponatremia, Hypokalemia, Hypocalcemia Nephrology consulted renal u/s (12/29): 3.2 cm benign-appearing left renal cyst otherwise negative General surgery consulted for non-tunneled HD CVC; placed 12/29 acute HD per nephrology - last received HD 12/29 renal function improving Fong initally dc'd 12/25-12/26. reinserted 12/29 continue to monitor renal function. Monitor electrolytes. replete as needed TPN dc'd 12/31 Replete electrolytes as needed/per protocol STEMI, Severe CAD, s/p PCI x3 (12/19) Diastolic CHF Cardiology consulted s/p LHC: Severe mid LAD disease (~80%) and diagonal disease (80-90%), s/p PCI to LAD and diagonal Significant mid circ/proximal OM1 disease (90%), s/p PCI Severe proximal RPLV disease (~80%) echo (12/22): 55-60% EF, poor study, grade 1 diastolic dysfunction, mild MR/TR continue aspirin 81 mg, metoprolol 12.5 BID Brillinta switched to plavix per cardio (01/01) Multiple myeloma on chemotherapy Generalized weakness Thrombocytopenia Reports recent diagnosis of multiple myeloma. On chemotherapy weakness and thrombocytopenia likely secondary to cancer / chemo -improving PT/OT/Dietitian consult s/p 1 platelet transfusion (12/19) s/p 2 unit irradiated plt (12/21, 12/22) Daily labs Code: Full Dispo: approved for inpatient rehab - valid thru 01/05 dc pending stability Downgrade from ICU 01/01
--- NOTE | 2024-01-02 11:45 | P.PN ---
Date of Service: 01/02/24 Vital Signs Temp Pulse Resp BP Pulse Ox 97.8 F 68 16 127/65 98 01/02/24 07:00 01/02/24 09:00 01/02/24 11:26 01/02/24 09:00 01/02/24 11:26 Medications Hydrocodone Bitart/Acetaminophen (Hydrocodone/Apap 10/325 Tab) 1 tab PO Q6H PRN PRN Reason: Pain scale 5-7 (Moderate) Last Admin: 01/02/24 09:09 Dose: 1 tab Aspirin (Aspirin 81 Mg Chewable Tablet) 81 mg PO DAILY [facility] Last Admin: 01/02/24 08:17 Dose: 81 mg Calcitriol (Calcitrol 0.25 Mcg Cap) 0.5 mcg PO BIDWM [facility] Last Admin: 01/02/24 08:16 Dose: 0.5 mcg Calcium Carbonate/Glycine (Calcium Carbonate 500 Mg Tab) 500 mg PO TID [facility] Last Admin: 01/02/24 08:16 Dose: 500 mg Clopidogrel Bisulfate (Clopidogrel 75 Mg Tablet) 75 mg PO DAILY [facility] Last Admin: 01/02/24 08:16 Dose: 75 mg Diphenhydr/Magaldrate/Simeth/Lidoca (Magic Mouthwash 180 Ml Btl) 15 ml PO QID PRN PRN Reason: SORE THROAT Last Admin: 12/31/23 05:06 Dose: 15 ml Fentanyl (Fentanyl 25 Mcg/Patch) 25 mcg TD EVERY 3RD DAY [facility] Last Admin: 12/31/23 08:16 Dose: 25 mcg Heparin Sodium (Porcine) (Heparin 1,000 Unit/Ml Vial) 6,000 unit IV EVERY HD PRN PRN Reason: AFTER EACH Last Admin: 12/30/23 21:47 Dose: 6,000 unit Hydromorphone HCl (Hydromorphone Hcl 2 Mg/Ml Inj) 2 mg IV Q4H PRN PRN Reason: Pain scale 8-10 (Severe) Last Admin: 01/02/24 11:26 Dose: 2 mg Sodium Chloride (Sodium Chloride) 250 mls @ 0 mls/hr IV .Q0M [facility] Last Admin: 12/23/23 06:13 Dose: 250 mls Dextrose (Dextrose 10% Water Iv Soln.) 125 mls @ 0 mls/hr IV PRN PRN; Protocol PRN Reason: HYPOGLYCEMIA Albumin Human (Albumin 25%) 50 mls @ 100 mls/hr IV EVERY HD [facility] Potassium Chloride 10 meq/ (Sodium Chloride) 1,005 mls @ 100 mls/hr IV .Q10H3M [facility] Last Admin: 01/02/24 11:20 Dose: 1,005 mls Albumin Human (Albumin 25%) 100 mls @ 100 mls/hr IV Q6H [facility] Stop: 01/02/24 14:59 Last Admin: 01/02/24 08:00 Dose: 100 mls Magnesium Chloride (Magnesium Chloride 64 Mg Tab) 128 mg PO BID [facility] Last Admin: 01/02/24 08:16 Dose: 128 mg Mannitol (Mannitol 25% 12.5 Gm/50 Ml Vial) 12.5 gm IV EVERY HD PRN PRN Reason: Titrate to SBP (MUST DEFINE) Metoprolol Tartrate (Metoprolol Tar 25 Mg Tab) 12.5 mg PO BID 6AM 6PM [facility] Last Admin: 01/02/24 06:22 Dose: 12.5 mg Ondansetron HCl (Ondansetron 4 Mg/2 Ml Vial) 4 mg IV Q6HP PRN PRN Reason: NAUSEA / VOMITING Pantoprazole Sodium (Pantoprazole 40 Mg Inj) 40 mg IVP DAILY [facility] Last Admin: 01/02/24 08:16 Dose: 40 mg Protein (Ensure Max Protein 330 Ml Liquid) 240 ml PO TID [facility] Last Admin: 01/02/24 08:17 Dose: 240 ml Sodium Chloride (Sodium Chloride 0.9% 10ml Inj) 10 ml IV UD PRN PRN Reason: Diluant Microbiology Results 12/19/23 18:50 Blood - Blood Aerobic Blood Culture - Final No growth in 5 days. 12/19/23 18:50 Blood - Blood Anaerobic Blood Culture - Final No growth in 5 days. 12/19/23 18:34 Blood - Blood Aerobic Blood Culture - Final No growth in 5 days. 12/19/23 18:34 Blood - Blood Anaerobic Blood Culture - Final No growth in 5 days. Assessment/ Plan: Nephrology Progress Note No Dyspnea No Chest Pain +Appetite Working with PT No Acute Events Overnight Vital Signs, Medications, Blood Work, and Imaging reviewed in the chart NAD. NCAT. MMM. Neck Supple. Normal Respiratory Effort/ CTA. RRR. Abd Tender with wound vac. Ostomy No C/C. Hip Edema 1+. No Rash. AAO. Normal Speech. Assessment & Plan Stage III ARSALAN likely due to hypotension/ hypovolemia Proteinuria -No NSAIDs -Continue fong -HD CVC placed 6-3-24 -HD prn Hyponatremia -Discontinue IVF Hyperkalemia/ Hypokalemia -Replete as ordered Hypocalcemia Hyperphosphatemia/ Hypophosphatemia -Calcium bn meals -Continue Calcitriol BID -Replete as ordered Hypomagnesemia -Replete as ordered -Increase SloMag Orthostatic Hypotension -Discontinue IVF at this time -Albumin X2 doses Peripheral Edemia -Discontinue IVF Severe Hypoalbuminemia -Albumin 25g IV X2 doses Anemia in chronic illness -PRBC prn -Retacrit prn Surgery following for perforation of the intestine Hospitalist notes reviewed Case reviewed with Dr. Dennis
--- NOTE | 2024-01-02 13:53 | PN ---
Date of Progress Note: 01/02/2024 Subjective: The patient lying in bed, feeling much better. Kidney function is much better. Wound V AC in place. Objective: Vital Signs: Temperature 98, pulse 68, respirations 16, blood pressure 127/65. Laboratory Data: Shows WBC 3.2, hemoglobin 7.7, platelets are 165. Chemistry shows BUN of 22, creat inine 0.9. Assessment And Plan: Abdominal wound with Escherichia coli extended-spectrum beta-lactamases infecti on, status post treatment, now getting local treatment, status post sigmoid bowel resection with end colostomy on December 19, intraabdominal abscess, status post evacuation on December 19, ventral hernia repair, December 19. Anemia of chronic disease. Multiple myeloma. Thrombocytopenia, improved. Continue suppor tive care and we will follow the patient as needed. NF/MODL Voice ID: [id number] Report ID: [id number]
[2024-01-02] MEDS: FENTANYL 25 MCG/PATCH TD SCH (14:56)
[2024-01-02] MEDS: HYDROMORPHONE HCL 1 MG/ML INJ IV PRN (16:18)
[2024-01-02] MEDS: HYDROMORPHONE HCL 1 MG/ML INJ IV ONE (21:20)
[2024-01-03 05:36] LABS: Absolute Eosinophils 0.1 K/uL (0-0.5); Absolute Lymphocytes (CBC) 0.5 K/uL (0.7-4.9); Absolute Monocytes 0.2 K/uL (0.1-1.3); Absolute Neutrophil 2.7 K/uL (1.8-8.0); Basophils % 0.9 % (0-1.3); Eosinophils % 3.7 % (0-4.4); Hematocrit 23.1 % (39.6-49.0); Hemoglobin 7.8 g/dL (13.6-17.9); Lymphocytes % 12.8 % (15.3-44.8); MCH 29.4 pg (27.0-35.0); MCHC 33.9 g/dL (32.0-36.0); MCV 86.6 fL (80-100); MPV 7.5 fL (7.6-11.3); Monocytes % 6.7 % (3.3-12.3); Neutrophils % 75.9 % (41.7-73.7); Platelets 181 thou/uL (152-406); RBC Red Blood Cell Count 2.67 M/uL (4.33-5.43); Red Cell Distribution Width 16.4 % (12.1-15.2)
[2024-01-03 05:56] LABS: AST/SGOT 11 U/L (15-37); Albumin 1.8 g/dL (3.4-5.0); Albumin/Globulin Ratio 0.5 (1.1-1.8); Alkaline Phosphatase 111 U/L (45-117); Anion Gap 7.9 mEq/L (5.0-15.0); BUN Blood Urea Nitrogen 16 mg/dL (7-18); Bicarbonate 24 mEq/L (21-32); Bilirubin Total 0.5 mg/dL (0.2-1.0); Globulin 3.5 g/dL (2.3-3.5); Glomerular Filtration Rate 94 ml/min (=/>90); Glucose Level 121 mg/dL (74-106); Magnesium 1.2 mg/dL (1.6-2.4); Phosphorus 2.2 mg/dL (2.5-4.9); Potassium 3.9 mEq/L (3.5-5.1); Protein, Total 5.3 g/dL (6.4-8.2); Sodium Level 134 mEq/L (136-145); Uric Acid 2.1 mg/dL (3.5-7.2)
[2024-01-03 06:02] LABS: ALT/SGPT < 14 U/L (16-61)
[2024-01-03] MEDS: POTASSIUM 25 MEQ EFFERV TAB PO ONE (07:01)
[2024-01-03] MEDS: Magnesium Sulfate 2gm IVPB 2 G/50 ML BAG IV ONE (07:02)
--- NOTE | 2024-01-03 07:29 | P.PN ---
Subjective Date of Service: 01/03/24 Chief Complaint: Anemia worsening renal function Review of Systems 10-point ROS is otherwise unremarkable Gastrointestinal: Abdominal Pain Genitourinary: Other (scrotal edema) Physical Examination - Vital Signs Temperature: 97.9 F Blood Pressure: 120/58 Pulse: 70 Respirations: 18 Pulse Ox (%): 96 - Physical Exam General: Alert, In no apparent distress HEENT: Atraumatic, Sclerae nonicteric Respiratory: Clear to auscultation bilaterally, Normal air movement Cardiovascular: Regular rate/rhythm, Edema (BLE 1+) Gastrointestinal: Normal bowel sounds, Other (colostomy. abdominal incision site) Integumentary: Other (abdominal surgical site with wound vac) Urinary: Sol catheter - Studies laboratory, microbiology and imaging data reviewed Medications List Reviewed: Yes Assessment And Plan - Plan Problem List: Perforated diverticulitis, s/p sigmoid bowel resection with end colostomy (12/19) intraabdominal abscess s/p evacuation (12/19) Ventral hernia 3cm s/p repair (12/19) Shock - multifactorial - sepsis/hypovolemic; resolved acute blood loss anemia ARSALAN Hyponatremia, Hypokalemia, Hypocalcemia STEMI, Severe CAD, s/p PCI x3 (12/19) Diastolic CHF Multiple myeloma on chemotherapy Generalized weakness Thrombocytopenia Septic shock secondary to perforated diverticulitis with intraadbominal abscess - s/p sigmoid bowel resection with end colostomy. abscess evacuation and ventral hernia repair on 12/19 - abdominal wound culture 12/18: Escherichia coli ESBL - completed 10 days meropenem and vancomycin (12/19-12/29) - afebrile Recommendations - completed 10 days IV meropenem and vancomcycin - continue with local wound care per surgery team - monitor CBC, BMP, fever trends - monitor surgical site for worsening s/s of infection Case discussed with Senait Crocker
[2024-01-03 08:12] LABS: Specific Gravity 1.013 (1.005-1.030); Sqamous Epithelial <5 /HPF (None Seen); Urine Bacteria None Seen /HPF (<20); Urine Bilirubin NEGATIVE (Negative); Urine Blood 2+ (Negative); Urine Clarity Extremely Turbid (Clear); Urine Color Light-Orange (Yellow); Urine Culture Reflex Order REFLEXED; Urine Glucose TRACE (Negative); Urine Ketones NEGATIVE (Negative); Urine Micro Reflex YN NO BILL MICROSCOPIC; Urine Mucus Slight /HPF (None Seen); Urine Nitrite NEGATIVE (Negative); Urine Protein 1+ (Negative); Urine RBC >50 /HPF (None Seen); Urine Urobilinogen Normal (Normal); Urine WBC >50 /HPF (<5); Urine Yeast (Budding) Many /HPF (None Seen); Urine Yeast with Hyphae Moderate /HPF (None Seen); Urine pH 6.5 (5.0-7.0)
[2024-01-03] MEDS: POTASS/SODIUM PHOSPHATE 1 PKT POWD.PACK PO SCH ×2 (09:00→11:48)
[2024-01-03 09:45] LABS: UR MICROALBUMIN 13.2 mg/dL (< 1.9); UR PROTEIN 76.3 mg/dL (<11.9); Urine Protein/Creatinine Ratio 1.86 ratio (<0.15)
--- NOTE | 2024-01-03 10:43 | P.PN ---
Date of Service: 01/03/24 Subjective: difficulty sleeping overnight secondary to pain report scrotal swelling/pain that increased yesterday. +tender ~1.1L output from ostomy over the last 48 hours per EMR appetite improving Breathing okay afebrile ROS: 10 point ROS as noted above, otherwise negative Physical Exam: GEN: Alert, oriented, NAD HEENT: Normal conjunctiva, sclera anicteric CV: Regular rate and rhythm, 1+ bilateral lower extremity edema, penile edema Pulm: Nonlabored respirations on RA ABD: wound vac in place, some bloody output, colostomy bag in place (functioning) Neuro: Normal speech, normal affect : edematous penis / scrotum Sol in place MILLY drain x2 in place colostomy bag in place vitals reviewed Problem List: Perforated diverticulitis, s/p sigmoid bowel resection with end colostomy (12/19) intraabdominal abscess s/p evacuation (12/19) Ventral hernia 3cm s/p repair (12/19) Shock - multifactorial - sepsis/hypovolemic; resolved yeast in urine acute blood loss anemia ARSALAN Hyponatremia, Hypokalemia, Hypocalcemia STEMI, Severe CAD, s/p PCI x3 (12/19) Diastolic CHF Multiple myeloma on chemotherapy Generalized weakness Thrombocytopenia Perforated diverticulitis, s/p sigmoid bowel resection with end colostomy (12/19) intraabdominal abscess s/p evacuation (12/19) Ventral hernia 3cm s/p repair (12/19) Shock - multifactorial - sepsis/hypovolemic; resolved yeast in urine Came to ER per patients oncologist due to outpatient labs with electrolyte abnormalities. Presented with epigastric pain, generalized weakness, poor PO intake over the past weeks. Dr. Moore, general surgery consulted s/p sigmoid bowel resection with end colostomy, evacuation of intraabdominal abscess, and ventral hernia repair (12/19) will need to follow up at wound healing center for continued management. +tentative plan for reversal of colostomy in the next few months MILLY drain x2 in place Protonix wound cx (12/18): E. coli ESBL completed ~10 days of merrem / vanc (12/19-12/29) ID following TPN dc'd (12/21-12/31) Appetite continues to improve will work to decrease IV pain medication, lowered Dilaudid dose 01/01 norco 10/325 switched to oxycodone start diflucan 200mg po x 14 days (01/02 -) due to yeast in urine, pt immuno compromised and at risk acute blood loss anemia pt with unknown IgG antibody - lab report reaction is effect of his MM medication and not true allergy currently on chemo prior to admission- is immunosupressed s/p 3 unit irradiated PRBCs (12/20 & 12/21, 12/25) s/p 1 uPRBC (12/31) Continue to monitor H&H. hgb stable, plt ok, on DAPT ARSALAN Hyponatremia, Hypokalemia, Hypocalcemia Nephrology consulted renal u/s (12/29): 3.2 cm benign-appearing left renal cyst otherwise negative General surgery consulted for non-tunneled HD CVC; placed 12/29 DC CVC catheter today per nephrology. No further HD planned last received acute HD 12/29 renal function improved Sol initally dc'd 12/25-12/26. reinserted 12/29 continue for now, at least until penila/scrotal swelling improved continue to monitor renal function Replete electrolytes as needed/per protocol TPN dc'd 12/31 STEMI, Severe CAD, s/p PCI x3 (12/19) Diastolic CHF Cardiology consulted s/p C: Severe mid LAD disease (~80%) and diagonal disease (80-90%), s/p PCI to LAD and diagonal Significant mid circ/proximal OM1 disease (90%), s/p PCI Severe proximal RPLV disease (~80%) echo (12/22): 55-60% EF, poor study, grade 1 diastolic dysfunction, mild MR/TR continue aspirin 81 mg, metoprolol 12.5 BID Brillinta switched to plavix per cardio (01/01) for possible contribution to oozin g Multiple myeloma on chemotherapy Generalized weakness Thrombocytopenia Reports recent diagnosis of multiple myeloma. On chemotherapy weakness and thrombocytopenia likely secondary to cancer / chemo - improving PT/OT/Dietitian consult s/p 1 platelet transfusion (12/19) s/p 2 unit irradiated plt (12/21, 12/22) Daily labs Code: Full Dispo: approved for inpatient rehab - valid thru 01/05 dc pending stability Downgrade from ICU 01/01 hopeful will be ready for rehab by 01/05
--- NOTE | 2024-01-03 11:33 | P.PN ---
(S) Pt doing better, renal function has recovered after one HD session Mon for hyperkalemia, auto-diuresing, no reports of large stool ostomy output, TPN prev stopped (O) Vitals reviewed in the EMR General: NAD HEENT: Atraumatic, Normocephalic, Other (off NC) Neck: Supple, Respiratory: Other (b/l air entry without wheezes or rhonchi) Cardiovascular: Other (Non tachy, mostly regular) Gastrointestinal: Other (mild distention, left sided stoma, drain, midline wound vac), fong preseny Musculoskeletal/ext: Other (some dependent LE edema, SCDs b/l), Rt fem CVC Integumentary: No rashes Neurological: Other (Awake, alert, no tremors or myoclonus noted) Laboratory Data (last 24 hrs) Reviewed in the EMR Conclusions/Impression: A/P) 1. Stage II ARSALAN in the setting of infection, hypotension, hypovolemia, PORTIA and other, last mo with recurrent Stage III ARF developed over the last weekend in the setting of hypovolemia, hypotension now resolved s/p HD x 1 on Mon. Will d/c Rt fem CVC 2. Hypokalemia initially followed by hyperkalemia earlier in the week, resolved. Off TPN, monitor K levels. 3. Severe hypocalcemia in the setting of acute illness +/- any recent administration of Prolia or bisphosphonates as OP as family mentions a prior hx of hypercelamia with MM. Total corrected Ca higher, although last ionized Ca level checked was still low. Cont Ca carbonate, Vitamin D3 and active Vit D/Calcitriol 4. Hypotension in the setting of infection, peritonitis, auto-diuresis, ostomy/drain losses -resolved, monitor closely 7. Perforated viscus, peritonitis s/p lap, sigmoid colectomy with end colostomy -management per gen surgery. Ike Friend MD, [facility]
[2024-01-03] MEDS: VITAMIN D 1000 UNIT TAB PO SCH (11:45)
[2024-01-03] MEDS: HYDROMORPHONE HCL 2 MG/ML inj IV ONE (15:11)
[2024-01-03] MEDS: FLUCONAZOLE 100 MG TAB PO SCH (15:40)
[2024-01-03] MEDS: Oxycodone HCl/Acetaminophen 5/325 MG TAB PO PRN (17:12)
--- NOTE | 2024-01-04 08:22 | P.PN ---
Date of Service: 01/04/24 Subjective: Doing okay. Doesn't feel anything is getting worse had HD cath, both MILLY drains removed yesterday ostomy bag with soft formed brown-yellow stool emptied yesterday pain more tolerable with current pain regimen penile swelling improving afebrile ROS: 10 point ROS as noted above, otherwise negative Physical Exam: GEN: Alert, oriented, NAD HEENT: Normal conjunctiva, sclera anicteric CV: Regular rate and rhythm, 1+ bilateral lower extremity edema Pulm: Nonlabored respirations on RA ABD: wound vac in place, some bloody output, colostomy bag in place (functioning) Neuro: Normal speech, normal affect : edematous penis / scrotum; improving Sol in place colostomy bag in place vitals reviewed Problem List: Perforated diverticulitis, s/p sigmoid bowel resection with end colostomy (12/19) intraabdominal abscess s/p evacuation (12/19) Ventral hernia 3cm s/p repair (12/19) Shock - multifactorial - sepsis/hypovolemic; resolved yeast in urine acute blood loss anemia ARSALAN, improved Hyponatremia, Hypokalemia, Hypocalcemia STEMI, Severe CAD, s/p PCI x3 (12/19) Diastolic CHF Multiple myeloma on chemotherapy Generalized weakness Thrombocytopenia Perforated diverticulitis, s/p sigmoid bowel resection with end colostomy (12/19) intraabdominal abscess s/p evacuation (12/19) Ventral hernia 3cm s/p repair (12/19) Shock - multifactorial - sepsis/hypovolemic; resolved yeast in urine s/p sigmoid bowel resection with end colostomy, evacuation of intraabdominal abscess, and ventral hernia repair (12/19) will need to follow up at wound healing center for continued management. +tentative plan for reversal of colostomy in the next few months both MILLY drains removed 01/[address] Moore Protonix wound cx (12/18): E. coli ESBL completed ~10 days of merrem / vanc (12/19-12/29) ID following TPN dc'd (12/21-12/31) will work to decrease IV pain medication, lowered Dilaudid dose 01/01 norco 10/325 switched to oxycodone 10/325 (01/02) patient reports pain is more tolerable today after adjusting pain meds yes terday continue diflucan 200mg po x 14 days (01/02-01/16) due to yeast in urine, pt immunocompromised and at risk acute blood loss anemia pt with unknown IgG antibody - lab report reaction is effect of his MM medication and not true allergy currently on chemo prior to admission- is immunosupressed s/p 3 unit irradiated PRBCs (12/20 & 12/21, 12/25) s/p 1 uPRBC (12/31) Continue to monitor H&H. hgb stable, plt ok, on DAPT ARSALAN, improved Hyponatremia, Hypokalemia, Hypocalcemia Nephrology consulted renal u/s (12/29): 3.2 cm benign-appearing left renal cyst otherwise negative General surgery consulted for non-tunneled HD CVC; placed 12/29 HD CVC catheter dc'd 01/02. No further HD planned. last received acute HD 12/29 renal function improved Sol initally dc'd 12/25-12/26. reinserted 12/29 continue for now, at least until penile/scrotal swelling improved continue to monitor renal function Replete electrolytes as needed/per protocol TPN dc'd (12/21-12/31) holding off on diuresis given recent ARSALAN STEMI, Severe CAD, s/p PCI x3 (12/19) Diastolic CHF Cardiology consulted s/p LHC: Severe mid LAD disease (~80%) and diagonal disease (80-90%), s/p PCI to LAD and diagonal Significant mid circ/proximal OM1 disease (90%), s/p PCI Severe proximal RPLV disease (~80%) echo (12/22): 55-60% EF, poor study, grade 1 diastolic dysfunction, mild MR/TR continue aspirin 81 mg, metoprolol 12.5 BID Brillinta switched to plavix per cardio (01/01) for possible contribution to oozing Multiple myeloma on chemotherapy Generalized weakness Thrombocytopenia Reports recent diagnosis of multiple myeloma. On chemotherapy weakness and thrombocytopenia likely secondary to cancer / chemo - improving PT/OT/Dietitian consult s/p 1 platelet transfusion (12/19) s/p 2 unit irradiated plt (12/21, 12/22) Daily labs Code: Full Dispo: approved for inpatient rehab - valid thru 01/05 dc pending stability. Anticipate discharge ~Friday 01/05 if continued improvement over the weekend
[2024-01-04 11:24] LABS: Absolute Eosinophils 0.1 K/uL (0-0.5); Absolute Lymphocytes (CBC) 0.5 K/uL (0.7-4.9); Absolute Monocytes 0.2 K/uL (0.1-1.3); Absolute Neutrophil 3.6 K/uL (1.8-8.0); Basophils % 1.1 % (0-1.3); Eosinophils % 2.9 % (0-4.4); Hematocrit 24.6 % (39.6-49.0); Hemoglobin 8.2 g/dL (13.6-17.9); Lymphocytes % 11.3 % (15.3-44.8); MCH 28.9 pg (27.0-35.0); MCHC 33.2 g/dL (32.0-36.0); MPV 7.2 fL (7.6-11.3); Monocytes % 4.9 % (3.3-12.3); Neutrophils % 79.8 % (41.7-73.7); Platelets 201 thou/uL (152-406); RBC Red Blood Cell Count 2.83 M/uL (4.33-5.43); Red Cell Distribution Width 16.4 % (12.1-15.2)
[2024-01-04 11:36] LABS: Anion Gap 7.2 mEq/L (5.0-15.0); Magnesium 1.6 mg/dL (1.6-2.4); Phosphorus 2.5 mg/dL (2.5-4.9); Potassium 4.2 mEq/L (3.5-5.1)
[2024-01-04] MEDS: POTASS/SODIUM PHOSPHATE 1 PKT POWD.PACK PO SCH (14:59)
[2024-01-04] MEDS: MAGNESIUM SULFATE 1 gm IVPB 1 GM/100 ML BAG IV ONE (14:59)
--- NOTE | 2024-01-04 21:02 | P.PN ---
Date of Service: 01/04/24 Vital Signs Temp Pulse Resp BP Pulse Ox 97.8 F 63 18 119/63 96 01/04/24 19:30 01/04/24 19:30 01/04/24 19:31 01/04/24 19:30 01/04/24 19:31 Medications Aspirin (Aspirin 81 Mg Chewable Tablet) 81 mg PO DAILY [facility] Last Admin: 01/04/24 09:02 Dose: 81 mg Calcitriol (Calcitrol 0.25 Mcg Cap) 0.5 mcg PO BIDWM [facility] Last Admin: 01/04/24 16:58 Dose: 0.5 mcg Calcium Carbonate/Glycine (Calcium Carbonate 500 Mg Tab) 500 mg PO TID [facility] Last Admin: 01/04/24 13:13 Dose: 500 mg Cholecalciferol (Vitamin D 1000 Unit Tab) 2,000 unit PO DAILY [facility] Last Admin: 01/04/24 09:02 Dose: 2,000 unit Clopidogrel Bisulfate (Clopidogrel 75 Mg Tablet) 75 mg PO DAILY [facility] Last Admin: 01/04/24 09:02 Dose: 75 mg Diphenhydr/Magaldrate/Simeth/Lidoca (Magic Mouthwash 180 Ml Btl) 15 ml PO QID PRN PRN Reason: SORE THROAT Last Admin: 01/02/24 23:42 Dose: 15 ml Fentanyl (Fentanyl 25 Mcg/Patch) 25 mcg TD EVERY 3RD DAY [facility] Last Admin: 01/02/24 14:56 Dose: 25 mcg Fluconazole (Fluconazole 100 Mg Tab) 200 mg PO DAILY [facility]; Protocol Stop: 01/17/24 16:01 Last Admin: 01/04/24 09:02 Dose: 200 mg Heparin Sodium (Porcine) (Heparin 1,000 Unit/Ml Vial) 6,000 unit IV EVERY HD PRN PRN Reason: AFTER EACH Last Admin: 12/30/23 21:47 Dose: 6,000 unit Hydromorphone HCl (Hydromorphone Hcl 1 Mg/Ml Inj) 1 mg IV Q4H PRN PRN Reason: BREAKTHROUGH PAIN Last Admin: 01/04/24 19:31 Dose: 1 mg Dextrose (Dextrose 10% Water Iv Soln.) 125 mls @ 0 mls/hr IV PRN PRN; Protocol PRN Reason: HYPOGLYCEMIA Albumin Human (Albumin 25%) 50 mls @ 100 mls/hr IV EVERY HD [facility] Magnesium Chloride (Magnesium Chloride 64 Mg Tab) 128 mg PO BID [facility] Last Admin: 01/04/24 09:04 Dose: 128 mg Metoprolol Tartrate (Metoprolol Tar 25 Mg Tab) 12.5 mg PO BID 6AM 6PM [facility] Last Admin: 01/04/24 16:59 Dose: 12.5 mg Ondansetron HCl (Ondansetron 4 Mg/2 Ml Vial) 4 mg IV Q6HP PRN PRN Reason: NAUSEA / VOMITING Oxycodone/Acetaminophen (Oxycodone Hcl/Acetaminophen 5/325 Mg Tab) 2 tab PO Q6H PRN PRN Reason: Pain scale 8-10 (Severe) Last Admin: 01/04/24 13:12 Dose: 2 tab Pantoprazole Sodium (Pantoprazole 40 Mg Inj) 40 mg IVP DAILY [facility] Last Admin: 01/04/24 09:05 Dose: 40 mg Protein (Ensure Max Protein 330 Ml Liquid) 240 ml PO TID [facility] Last Admin: 01/04/24 13:24 Dose: Not Given Sodium Chloride (Sodium Chloride 0.9% 10ml Inj) 10 ml IV UD PRN PRN Reason: Diluant Microbiology Results 12/19/23 18:50 Blood - Blood Aerobic Blood Culture - Final No growth in 5 days. 12/19/23 18:50 Blood - Blood Anaerobic Blood Culture - Final No growth in 5 days. 12/19/23 18:34 Blood - Blood Aerobic Blood Culture - Final No growth in 5 days. 12/19/23 18:34 Blood - Blood Anaerobic Blood Culture - Final No growth in 5 days. Assessment/ Plan: Nephrology Progress Note No Dyspnea No Chest Pain +Appetite Working with PT No Acute Events Overnight Vital Signs, Medications, Blood Work, and Imaging reviewed in the chart NAD. NCAT. MMM. Neck Supple. Normal Respiratory Effort/ CTA. RRR. Abd Tender with wound vac. Ostomy No C/C. Hip Edema 1+. No Rash. AAO. Normal Speech. Assessment & Plan Stage III ARSALAN likely due to hypotension/ hypovolemia Proteinuria -No NSAIDs -Continue fong -HD CVC placed 6-3-24 -HD prn Hyponatremia Hyperkalemia/ Hypokalemia -Replete as ordered Hypocalcemia Hyperphosphatemia/ Hypophosphatemia -Calcium bn meals -Continue Calcitriol BID -Replete as ordered Hypomagnesemia -Replete as ordered -Continue SloMag Orthostatic Hypotension -Discontinue IVF at this time -Albumin prn Peripheral Edemia -Lasix prn Severe Hypoalbuminemia -Albumin 25g IV prn Anemia in chronic illness -PRBC prn -Retacrit prn Surgery following for perforation of the intestine Hospitalist notes reviewed Case reviewed with Dr. Dennis
[2024-01-05 05:33] LABS: Absolute Basophils 0.1 K/uL (0-0.5); Absolute Eosinophils 0.1 K/uL (0-0.5); Absolute Lymphocytes (CBC) 0.5 K/uL (0.7-4.9); Absolute Monocytes 0.2 K/uL (0.1-1.3); Absolute Neutrophil 3.6 K/uL (1.8-8.0); Basophils % 1.2 % (0-1.3); Eosinophils % 3.1 % (0-4.4); Hematocrit 23.5 % (39.6-49.0); Lymphocytes % 11.3 % (15.3-44.8); MCH 29.5 pg (27.0-35.0); MCV 86.8 fL (80-100); MPV 7.3 fL (7.6-11.3); Monocytes % 5.2 % (3.3-12.3); Neutrophils % 79.2 % (41.7-73.7); Platelets 207 thou/uL (152-406); RBC Red Blood Cell Count 2.71 M/uL (4.33-5.43); Red Cell Distribution Width 16.7 % (12.1-15.2)
[2024-01-05 05:51] LABS: AST/SGOT 12 U/L (15-37); Albumin 1.7 g/dL (3.4-5.0); Albumin/Globulin Ratio 0.5 (1.1-1.8); Alkaline Phosphatase 104 U/L (45-117); Anion Gap 6.1 mEq/L (5.0-15.0); BUN Blood Urea Nitrogen 12 mg/dL (7-18); Bicarbonate 26 mEq/L (21-32); Bilirubin Total 0.4 mg/dL (0.2-1.0); Globulin 3.4 g/dL (2.3-3.5); Glomerular Filtration Rate 100 ml/min (=/>90); Glucose Level 114 mg/dL (74-106); Magnesium 1.5 mg/dL (1.6-2.4); Potassium 4.1 mEq/L (3.5-5.1); Protein, Total 5.1 g/dL (6.4-8.2); Sodium Level 133 mEq/L (136-145)
[2024-01-05 05:53] LABS: ALT/SGPT < 14 U/L (16-61)
--- NOTE | 2024-01-05 08:33 | P.PN ---
Date of Service: 01/05/24 Subjective: feels scrotum is more swollen today, legs better. sitting in position currently that pelvis is lowest point / below legs otherwise no other new / worsening problems improving with PT. ambulating farther with walker per PT note yesterday remains afebrile ROS: 10 point ROS as noted above, otherwise negative Physical Exam: GEN: Alert, oriented, NAD HEENT: Normal conjunctiva, sclera anicteric CV: Regular rate and rhythm, 1-2+ bilateral lower extremity edema Pulm: Nonlabored respirations on RA ABD: wound vac in place, some bloody output, colostomy bag in place (functioning) Neuro: Normal speech, normal affect : edematous penis / scrotum, tender Sol in place colostomy bag in place vitals reviewed Problem List: Perforated diverticulitis, s/p sigmoid bowel resection with end colostomy (12/19) intraabdominal abscess s/p evacuation (12/19) Ventral hernia 3cm s/p repair (12/19) Shock - multifactorial - sepsis/hypovolemic; resolved yeast in urine acute on chronic anemia with acute blood loss component ARSALAN, improved Hyponatremia, Hypokalemia, Hypocalcemia STEMI, Severe CAD, s/p PCI x3 (12/19) Diastolic CHF Multiple myeloma on chemotherapy Generalized weakness Thrombocytopenia Perforated diverticulitis, s/p sigmoid bowel resection with end colostomy (12/19) intraabdominal abscess s/p evacuation (12/19) Ventral hernia 3cm s/p repair (12/19) Shock - multifactorial - sepsis/hypovolemic; resolved yeast in urine s/p sigmoid bowel resection with end colostomy, evacuation of intraabdominal abscess, and ventral hernia repair (12/19) will need to follow up at wound healing center for continued management. +tentative plan for reversal of colostomy in the next few months both MILLY drains removed 01/[address] Moore IV Protonix BID wound cx (12/18): E. coli ESBL completed ~10 days of merrem / vanc (12/19-12/29) ID following TPN dc'd (12/21-12/31) norco 10/325 switched to oxycodone 10/325 (01/02) IV dilaudid dc'd (01/04) continue diflucan 200mg po x 14 days (01/02-01/16) due to yeast in urine, pt immunocompromised and at risk acute on chronic anemia with acute blood loss component pt with unknown IgG antibody - lab report reaction is effect of his MM medication and not true allergy currently on chemo prior to admission- is immunosupressed s/p 3 unit irradiated PRBCs (12/20 & 12/21, 12/25) s/p 1 uPRBC (12/31) Continue to monitor H&H. hgb stable, plt ok, on DAPT ARSALAN, improved Hyponatremia, Hypokalemia, Hypocalcemia Nephrology consulted renal u/s (12/29): 3.2 cm benign-appearing left renal cyst otherwise negative General surgery consulted for non-tunneled HD CVC; placed 12/29 HD CVC catheter dc'd 01/02. No further HD planned. last received acute HD 12/29 renal function improved Sol initally dc'd 12/25-12/26. reinserted 12/29 continue for now, at least until penile/scrotal swelling improved continue to monitor renal function Replete electrolytes as needed/per protocol TPN dc'd (12/21-12/31) holding off on diuresis given recent ARSALAN. Will discuss with nephro - albumin + lasix x1 to assist with diuresis if agreeable given ARSALAN / requiring HD x1 STEMI, Severe CAD, s/p PCI x3 (12/19) Diastolic CHF Cardiology consulted s/p LHC: Severe mid LAD disease (~80%) and diagonal disease (80-90%), s/p PCI to LAD and diagonal Significant mid circ/proximal OM1 disease (90%), s/p PCI Severe proximal RPLV disease (~80%) echo (12/22): 55-60% EF, poor study, grade 1 diastolic dysfunction, mild MR/TR continue aspirin 81 mg, metoprolol 12.5 BID Brillinta switched to plavix per cardio (01/01) for possible contribution to oozin g Multiple myeloma on chemotherapy Generalized weakness Thrombocytopenia Reports recent diagnosis of multiple myeloma. On chemotherapy weakness and thrombocytopenia likely secondary to cancer / chemo - improving PT/OT/Dietitian consult s/p 1 platelet transfusion (12/19) s/p 2 unit irradiated plt (12/21, 12/22) Daily labs Code: Full Dispo: approved for inpatient rehab - valid thru 01/05 dc pending stability. Anticipate discharge ~Friday 01/05 if continued improvement over the weekend
--- NOTE | 2024-01-05 10:21 | P.PN ---
Date of Service: 01/05/24 Vital Signs Temp Pulse Resp BP Pulse Ox 97.5 F 66 18 125/66 95 01/05/24 08:00 01/05/24 08:00 01/05/24 08:02 01/05/24 08:00 01/05/24 08:02 Medications Aspirin (Aspirin 81 Mg Chewable Tablet) 81 mg PO DAILY [facility] Last Admin: 01/05/24 08:02 Dose: 81 mg Calcitriol (Calcitrol 0.25 Mcg Cap) 0.5 mcg PO BIDWM [facility] Last Admin: 01/05/24 08:01 Dose: 0.5 mcg Calcium Carbonate/Glycine (Calcium Carbonate 500 Mg Tab) 500 mg PO TID [facility] Last Admin: 01/05/24 08:01 Dose: 500 mg Cholecalciferol (Vitamin D 1000 Unit Tab) 2,000 unit PO DAILY [facility] Last Admin: 01/05/24 08:01 Dose: 2,000 unit Clopidogrel Bisulfate (Clopidogrel 75 Mg Tablet) 75 mg PO DAILY [facility] Last Admin: 01/05/24 08:01 Dose: 75 mg Diphenhydr/Magaldrate/Simeth/Lidoca (Magic Mouthwash 180 Ml Btl) 15 ml PO QID PRN PRN Reason: SORE THROAT Last Admin: 01/02/24 23:42 Dose: 15 ml Fentanyl (Fentanyl 25 Mcg/Patch) 25 mcg TD EVERY 3RD DAY [facility] Last Admin: 01/02/24 14:56 Dose: 25 mcg Fluconazole (Fluconazole 100 Mg Tab) 200 mg PO DAILY [facility]; Protocol Stop: 01/17/24 16:01 Last Admin: 01/05/24 08:01 Dose: 200 mg Heparin Sodium (Porcine) (Heparin 1,000 Unit/Ml Vial) 6,000 unit IV EVERY HD PRN PRN Reason: AFTER EACH Last Admin: 12/30/23 21:47 Dose: 6,000 unit Dextrose (Dextrose 10% Water Iv Soln.) 125 mls @ 0 mls/hr IV PRN PRN; Protocol PRN Reason: HYPOGLYCEMIA Albumin Human (Albumin 25%) 50 mls @ 100 mls/hr IV EVERY HD [facility] Albumin Human (Albumin 25%) 100 mls @ 100 mls/hr IV Q6H [facility] Stop: 01/05/24 17:29 Magnesium Chloride (Magnesium Chloride 64 Mg Tab) 128 mg PO BID [facility] Last Admin: 01/05/24 08:09 Dose: 128 mg Metoprolol Tartrate (Metoprolol Tar 25 Mg Tab) 12.5 mg PO BID 6AM 6PM [facility] Last Admin: 01/05/24 05:13 Dose: Not Given Ondansetron HCl (Ondansetron 4 Mg/2 Ml Vial) 4 mg IV Q6HP PRN PRN Reason: NAUSEA / VOMITING Oxycodone/Acetaminophen (Oxycodone Hcl/Acetaminophen 5/325 Mg Tab) 2 tab PO Q6H PRN PRN Reason: Pain scale 8-10 (Severe) Last Admin: 01/05/24 05:11 Dose: 2 tab Pantoprazole Sodium (Pantoprazole 40 Mg Inj) 40 mg IVP DAILY [facility] Last Admin: 01/05/24 08:10 Dose: 40 mg Potassium Chloride (Potassium Cl Sa 10 Meq Tab) 20 meq PO 1X ONE Stop: 01/05/24 14:01 Protein (Ensure Max Protein 330 Ml Liquid) 240 ml PO TID [facility] Last Admin: 01/05/24 08:02 Dose: 240 ml Sodium Chloride (Sodium Chloride 0.9% 10ml Inj) 10 ml IV UD PRN PRN Reason: Diluant Torsemide (Torsemide 20 Mg Tab) 20 mg PO 1X ONE Stop: 01/06/24 11:01 Microbiology Results 12/19/23 18:50 Blood - Blood Aerobic Blood Culture - Final No growth in 5 days. 12/19/23 18:50 Blood - Blood Anaerobic Blood Culture - Final No growth in 5 days. 12/19/23 18:34 Blood - Blood Aerobic Blood Culture - Final No growth in 5 days. 12/19/23 18:34 Blood - Blood Anaerobic Blood Culture - Final No growth in 5 days. Assessment/ Plan: Nephrology Progress Note No Dyspnea No Chest Pain +Appetite Working with PT Persistent edema No Acute Events Overnight Vital Signs, Medications, Blood Work, and Imaging reviewed in the chart NAD. NCAT. MMM. Neck Supple. Normal Respiratory Effort/ CTA. RRR. Abd Tender with wound vac. Ostomy No C/C. Hip & LE Edema 1+. No Rash. AAO. Normal Speech. Fong Assessment & Plan Stage III ARSALAN likely due to hypotension/ hypovolemia Proteinuria -No NSAIDs -Continue fong -Temp HD CVC placed 12-30-23 and removed. Hyponatremia -Torsemide X1 Hyperkalemia/ Hypokalemia -Replete as ordered Hypocalcemia Hyperphosphatemia/ Hypophosphatemia -Calcium bn meals -Continue Calcitriol BID -Replete as ordered Hypomagnesemia -Replete as ordered -Continue SloMag Orthostatic Hypotension -Albumin X2 today Peripheral Edemia -Torsemide and Albumin today Severe Hypoalbuminemia -Albumin 25g X2 today Anemia in chronic illness -PRBC prn -Retacrit prn Surgery following for perforation of the intestine Hospitalist notes reviewed Case reviewed with Dr. Dennis
[2024-01-05] MEDS: Magnesium Sulfate 2gm IVPB 2 G/50 ML BAG IV ONE (10:40)
[2024-01-05] MEDS: ALBUMIN HUMAN 25% 100 ML IV SCH (10:47)
[2024-01-05] MEDS: POTASSIUM CL SA 10 MEQ TAB PO ONE (13:15)
--- NOTE | 2024-01-06 05:16 | PN ---
Subjective: Patient is lying in bed, being assisted by nurse physician assistant surgery at this time. Denies any hea dache, nausea, vomiting, chest pain, abdominal pain, constipation, or diarrhea. Objective: Vital Signs: Reviewed. Lungs: Basal crackles. Heart: S1, S2. Regular. Abdomen: Soft, nontender. Bowel sounds present. Extremities: Positive swelling noted . Colostomy bag and abdominal wound with wound VAC i n place. Laboratory Data: Reviewed. Assessment And Plan: Urine cultures, no growth. Urinalysis shows WBC more than 50 with moderate to many yeast noted. The patient was started on Diflucan for funguria and tolerating it well. Perforat ed diverticulitis, status post sigmoid bowel suction with end-colostomy on December 19; intraabdominal abs cess status, post evacuation on December 19; ventral hernia 3 cm, status post repair on December 19; multiple m yeloma, on chemotherapy; coronary artery disease. Continue supportive care and current treatment. W e will follow the patient as needed. Monitor signs of infection with WBC and fever trends. NF/MODL Voice ID: [id number] Report ID: [id number]
[2024-01-06 05:26] LABS: Absolute Eosinophils 0.1 K/uL (0-0.5); Absolute Lymphocytes (CBC) 0.5 K/uL (0.7-4.9); Absolute Monocytes 0.2 K/uL (0.1-1.3); Absolute Neutrophil 4.1 K/uL (1.8-8.0); Eosinophils % 1.6 % (0-4.4); Hemoglobin 7.1 g/dL (13.6-17.9); Lymphocytes % 10.9 % (15.3-44.8); MCH 29.5 pg (27.0-35.0); MCV 86.8 fL (80-100); MPV 7.6 fL (7.6-11.3); Monocytes % 4.8 % (3.3-12.3); Neutrophils % 81.7 % (41.7-73.7); Nucleated Red Blood Cells % 0.1 % (0-0); Platelets 206 thou/uL (152-406); RBC Red Blood Cell Count 2.42 M/uL (4.33-5.43); Red Cell Distribution Width 16.5 % (12.1-15.2)
[2024-01-06 05:41] LABS: Albumin/Globulin Ratio 0.7 (1.1-1.8); Alkaline Phosphatase 92 U/L (45-117); BUN Blood Urea Nitrogen 13 mg/dL (7-18); Bicarbonate 25 mEq/L (21-32); Bilirubin Total 0.4 mg/dL (0.2-1.0); Globulin 2.9 g/dL (2.3-3.5); Glomerular Filtration Rate 96 ml/min (=/>90); Glucose Level 116 mg/dL (74-106); Magnesium 1.9 mg/dL (1.6-2.4); Phosphorus 2.4 mg/dL (2.5-4.9); Protein, Total 4.9 g/dL (6.4-8.2); Sodium Level 135 mEq/L (136-145); Uric Acid 1.8 mg/dL (3.5-7.2)
[2024-01-06 05:42] LABS: ALT/SGPT < 14 U/L (16-61); AST/SGOT < 10 U/L (15-37)
[2024-01-06] MEDS: POTASSIUM PHOS IN 0.9 % NACL 15 MMOL/250 ML BAG IV ONE ×2 (06:40→08:43)
[2024-01-06] MEDS: TORSEMIDE 20 MG TAB ONE (08:46)
--- NOTE | 2024-01-06 08:53 | P.PN ---
Date of Service: 01/06/24 Subjective: reports some lower abdominal pain overnight secondary to kinked fong. no obvious bleeds. No bloody urine. feels a little more run down / tired today afebrile ROS: 10 point ROS as noted above, otherwise negative Physical Exam: GEN: Alert, oriented, NAD HEENT: Normal conjunctiva, sclera anicteric CV: Regular rate and rhythm, 1-2+ bilateral lower extremity edema Pulm: Nonlabored respirations on RA ABD: wound vac in place, some bloody output, colostomy bag in place (functioning) Neuro: Normal speech, normal affect : edematous penis / scrotum, tender Fong in place colostomy bag in place vitals reviewed Problem List: Perforated diverticulitis, s/p sigmoid bowel resection with end colostomy (12/19) intraabdominal abscess s/p evacuation (12/19) Ventral hernia 3cm s/p repair (12/19) Shock - multifactorial - sepsis/hypovolemic; resolved yeast in urine acute on chronic anemia with acute blood loss component ARSALAN, improved Hyponatremia, Hypokalemia, Hypocalcemia STEMI, Severe CAD, s/p PCI x3 (12/19) Diastolic CHF Multiple myeloma on chemotherapy Generalized weakness Thrombocytopenia Perforated diverticulitis, s/p sigmoid bowel resection with end colostomy (12/19) intraabdominal abscess s/p evacuation (12/19) Ventral hernia 3cm s/p repair (12/19) Shock - multifactorial - sepsis/hypovolemic; resolved yeast in urine s/p sigmoid bowel resection with end colostomy, evacuation of intraabdominal abscess, and ventral hernia repair (12/19) will need to follow up at wound healing center for continued management. +tentative plan for reversal of colostomy in the next few months both MILLY drains removed 01/[address] Moore IV Protonix BID wound cx (12/18): E. coli ESBL completed ~10 days of merrem / vanc (12/19-12/29) repeat UA with yeast (01/02); continue diflucan 200mg po x 14 days (01/02-01/16) ID following TPN dc'd (12/21-12/31) norco 10/325 switched to oxycodone 10/325 (01/02) IV dilaudid dc'd (01/04) acute on chronic anemia with acute blood loss component pt with unknown IgG antibody - lab report reaction is effect of his MM medication and not true allergy currently on chemo prior to admission- is immunosupressed s/p 3 unit irradiated PRBCs (12/20 & 12/21, 12/25) s/p 1 uPRBC (12/31) Continue to monitor H&H. hgb down to 7.1 today. Received albumin yesterday. Didn't received torsemide. recheck H&H. ?possible dilution. May need another transfusion. plt ok, on DAPT ARSALAN, improved Hyponatremia, Hypokalemia, Hypocalcemia Nephrology consulted renal u/s (12/29): 3.2 cm benign-appearing left renal cyst otherwise negative General surgery consulted for non-tunneled HD CVC; placed 12/29 HD CVC catheter dc'd 01/02. No further HD planned. last received acute HD 12/29 renal function improved Fong initally dc'd 12/25-12/26. reinserted 12/29 continue for now, at least until penile/scrotal swelling improved continue to monitor renal function Replete electrolytes as needed/per protocol TPN dc'd (12/21-12/31) received albumin x1 yesterday. Didn't receive torsemide yesterday. torsemide x1 20 mg ordered for this morning STEMI, Severe CAD, s/p PCI x3 (12/19) Diastolic CHF Cardiology consulted s/p LHC: Severe mid LAD disease (~80%) and diagonal disease (80-90%), s/p PCI to LAD and diagonal Significant mid circ/proximal OM1 disease (90%), s/p PCI Severe proximal RPLV disease (~80%) echo (12/22): 55-60% EF, poor study, grade 1 diastolic dysfunction, mild MR/TR continue aspirin 81 mg, metoprolol 12.5 BID Brillinta switched to plavix per cardio (01/01) for possible contribution to oozing Multiple myeloma on chemotherapy Generalized weakness Thrombocytopenia Reports recent diagnosis of multiple myeloma. On chemotherapy weakness and thrombocytopenia likely secondary to cancer / chemo - improving PT/OT/Dietitian consult s/p 1 platelet transfusion (12/19) s/p 2 unit irradiated plt (12/21, 12/22) Daily labs Code: Full Dispo: approved for inpatient rehab - valid thru 01/05 dc pending stability. Anticipate later today. recheck H&H. may need another transfusion before going up to rehab
[2024-01-06] MEDS: TORSEMIDE 20 MG TAB PO ONE (09:06)
[2024-01-06] MEDS: Oxycodone HCl/Acetaminophen 5/325 MG TAB PO PRN (09:14)
[2024-01-06 09:28] LABS: Hematocrit 22.2 % (39.6-49.0); Hemoglobin 7.5 g/dL (13.6-17.9)
[2024-01-06] MEDS ORDERED: TORSEMIDE 20 MG TAB PO ONE (11:00)
[2024-01-06 11:12] VITALS: O2SAT 97
--- NOTE | 2024-01-06 11:19 | P.PN ---
Date of Service: 01/06/24 Vital Signs Temp Pulse Resp BP Pulse Ox 97.8 F 66 15 131/67 96 01/06/24 08:00 01/06/24 09:06 01/06/24 09:14 01/06/24 09:06 01/06/24 09:14 Medications Aspirin (Aspirin 81 Mg Chewable Tablet) 81 mg PO DAILY [facility] Last Admin: 01/06/24 08:42 Dose: 81 mg Calcitriol (Calcitrol 0.25 Mcg Cap) 0.5 mcg PO BIDWM [facility] Last Admin: 01/06/24 08:43 Dose: 0.5 mcg Calcium Carbonate/Glycine (Calcium Carbonate 500 Mg Tab) 500 mg PO TID [facility] Last Admin: 01/06/24 08:42 Dose: 500 mg Cholecalciferol (Vitamin D 1000 Unit Tab) 2,000 unit PO DAILY [facility] Last Admin: 01/06/24 08:42 Dose: 2,000 unit Clopidogrel Bisulfate (Clopidogrel 75 Mg Tablet) 75 mg PO DAILY [facility] Last Admin: 01/06/24 08:42 Dose: 75 mg Diphenhydr/Magaldrate/Simeth/Lidoca (Magic Mouthwash 180 Ml Btl) 15 ml PO QID PRN PRN Reason: SORE THROAT Last Admin: 01/02/24 23:42 Dose: 15 ml Fentanyl (Fentanyl 25 Mcg/Patch) 25 mcg TD EVERY 3RD DAY [facility] Last Admin: 01/05/24 10:47 Dose: 25 mcg Fluconazole (Fluconazole 100 Mg Tab) 200 mg PO DAILY [facility]; Protocol Stop: 01/17/24 16:01 Last Admin: 01/06/24 08:42 Dose: 200 mg Heparin Sodium (Porcine) (Heparin 1,000 Unit/Ml Vial) 6,000 unit IV EVERY HD PRN PRN Reason: AFTER EACH Last Admin: 12/30/23 21:47 Dose: 6,000 unit Dextrose (Dextrose 10% Water Iv Soln.) 125 mls @ 0 mls/hr IV PRN PRN; Protocol PRN Reason: HYPOGLYCEMIA Albumin Human (Albumin 25%) 50 mls @ 100 mls/hr IV EVERY HD [facility] Potassium Phosphate (Potassium Phos 15 Mmol/250 Ml Ns) 15 mmol in 250 mls @ 62.5 mls/hr IV 1X ONE; Protocol Stop: 01/06/24 11:59 Last Admin: 01/06/24 08:43 Dose: 250 mls Magnesium Chloride (Magnesium Chloride 64 Mg Tab) 128 mg PO BID [facility] Last Admin: 01/06/24 08:42 Dose: 128 mg Metoprolol Tartrate (Metoprolol Tar 25 Mg Tab) 12.5 mg PO BID 6AM 6PM [facility] Last Admin: 01/06/24 05:03 Dose: 12.5 mg Ondansetron HCl (Ondansetron 4 Mg/2 Ml Vial) 4 mg IV Q6HP PRN PRN Reason: NAUSEA / VOMITING Oxycodone/Acetaminophen (Oxycodone Hcl/Acetaminophen 5/325 Mg Tab) 2 tab PO Q5H PRN PRN Reason: Pain scale 8-10 (Severe) Last Admin: 01/06/24 09:14 Dose: 2 tab Pantoprazole Sodium (Pantoprazole 40 Mg Inj) 40 mg IVP DAILY [facility] Last Admin: 01/06/24 08:43 Dose: 40 mg Protein (Ensure Max Protein 330 Ml Liquid) 240 ml PO TID [facility] Last Admin: 01/06/24 08:43 Dose: 240 ml Sodium Chloride (Sodium Chloride 0.9% 10ml Inj) 10 ml IV UD PRN PRN Reason: Diluant Microbiology Results 12/19/23 18:50 Blood - Blood Aerobic Blood Culture - Final No growth in 5 days. 12/19/23 18:50 Blood - Blood Anaerobic Blood Culture - Final No growth in 5 days. 12/19/23 18:34 Blood - Blood Aerobic Blood Culture - Final No growth in 5 days. 12/19/23 18:34 Blood - Blood Anaerobic Blood Culture - Final No growth in 5 days. Assessment/ Plan: Nephrology Progress Note No Dyspnea No Chest Pain +Appetite Working with PT Persistent edema No Acute Events Overnight Vital Signs, Medications, Blood Work, and Imaging reviewed in the chart NAD. NCAT. MMM. Neck Supple. Normal Respiratory Effort/ CTA. RRR. Abd Tender with wound vac. Ostomy No C/C. Hip & LE Edema 1+. No Rash. AAO. Normal Speech. Fong Assessment & Plan Stage III ARSALAN likely due to hypotension/ hypovolemia Proteinuria -No NSAIDs -Continue fong -Temp HD CVC placed 12-30-23 and removed. Hyponatremia -Torsemide prn Hyperkalemia/ Hypokalemia -Replete prn Hypocalcemia Hyperphosphatemia/ Hypophosphatemia -Calcium bn meals -Continue Calcitriol BID -Replete as ordered Hypomagnesemia -Replete prn -Continue SloMag Orthostatic Hypotension, improved -Albumin IV prn Peripheral Edemia -Torsemide prn Severe Hypoalbuminemia -Albumin IV prn -Continue protein supplementation Anemia in chronic illness -PRBC prn -Retacrit prn Surgery following for perforation of the intestine Hospitalist notes reviewed Case reviewed with Dr. Dennis
--- NOTE | 2024-01-06 13:00 | P.DS ---
Admission Date: 12/19/23 Discharge Date: 01/06/24 Disposition: TRANSFER TO INPATIENT REHAB Discharge Condition: GOOD Reason for Admission: Anemia worsening renal function Consultations: Cardiology - Dr. Greenfield / Dr. Frederick General surgery - Dr. Moore Infectious Disease - Dr. Herring Nephrology - Dr. Martinez, Dr. Cuevas, Dr. Friend Pulmonology - Dr. Rich Brief History of Present Illness: 68yo M, PMH: newly diagnosed multiple myeloma and currently on chemotherapy. Patient presented to the ER accompanied by daughter after his oncologist urged him to present to the ER due to electrolyte abnormalities. Patient has severe hypocalcemia with a calcium of 5.9, hypokalemia with a potassium of 3.0 and hyponatremia with a sodium of 127. He has received some potassium replacement by the ER, 2 L of normal saline and 1 g of calcium gluconate. Daughter states that patient has been weak over the past few weeks. His appetite has been poor as well. Additionally, patient has been having abdominal pain especially in the epigastric area. CT abdomen pelvis revealed perforated small bowel. General surgery was urgently consulted and patient be taken to the OR. Hospital Course: Physician discharge instructions: Patient presented due to outpatient labs with electrolyte abnormalities. Presents with epigastric abdominal pain, generalized weakness, poor PO intake over the past weeks. Patient was found to have a perforated diverticulitis complicated by intraabdominal abscess, 3cm ventral hernia, seen on imaging on admission. Dr. Moore, general surgeon was consulted and patient was taken to OR on 12/19 for sigmoid bowel resection with end colostomy, evacuation of intraabdominal abscess, and ventral hernia repair (12/19) Wound culture grew E. coli ESBL. ID was consulted. Patient completed ~10 days of merrem / vanc (12/19-12/29). Patient received TPN from 12/21-12/31 for supplementation nutrition. Once patient's appetite improved and was tolerating oral intake without issues TPN was discontinued. Repeat Urinalysis on (01/02) noted yeast in his urine. Patient was started on PO diflucan 200mg given risk factors/immunocompromsied state, and is to complete 2 week total course. (End date 01/17/24) Patients hemoglobin levels were noted to fluctuate throughout hospitalization post operatively (lowest 6.6 on 12/28) Patient has history multiple myeloma, on chemotherapy prior to admission and is immunosupressed. Patient required 3 units of irradiated PRBCs (12/20 & 12/21, 12/25), 1 unit of PRBCs (12/31), 1 platelet transfusion (12/19), and 2 unit irradiated platelet (12/21, 12/22). Suspect initial thrombocytopenia secondary to cancer/chemo. Hemoglobin remained stable in high 7s/low 8s for rest of hospitalization since last blood transfusion on 12/31. Patient was noted to have an ARSALAN on admission with serum creatinine of 2.84 along with severe electrolyte abnormalities. Renal ultrasound noted a 3.2 cm benign-appearing left renal cyst otherwise negative. Renal function initially improved with fluids, and ARSALAN resolved 12/24. He was noted to have lower extremity edema / swelling due to low albumin and was diuresed with lasix. Sol catheter was initially dc'd 12/25-12/26. Renal function subsequently down-trended substantially over the next few days (peak 4.17 on 12/29) Sol was replaced and patient underwent HD once given worsening renal function. General surgery placed non-tunneled HD CVC on placed 12/29. Renal function improved the morning after patient received dialysis. HD CVC catheter was dc'd 01/02 as patient no longer needed HD. Sol is to be continued on discharge in rehab until scrotal/penile swelling is improved. On day of discharge patient was noted to be diuresing well. On 01/04 did receive some albumin and one dose of torsemide on 01/05 with good response. Patient developed VT and STEMI after surgery 12/19. Underwent emergent heart cath on 12/19 requiring multiple stents. Echo was obtained this hospitalization (12/22) and noted EF of 55-60%, poor study, grade 1 diastolic dysfunction, mild MR/TR Patient was started on brillinta post operatively and was eventually switched to plavix per cardio (01/01) for possible contribution to oozing. Heart cath report: 1. Severe mid LAD disease (~80%) and diagonal disease (80-90%), s/p PCI to LAD and diagonal 2. Significant mid circ/proximal OM1 disease (90%), s/p PCI 3. Severe proximal RPLV disease (~80%) Wound vac was placed post-operatively, and is to continue with this. Follow up with Dr. Moore. Medications: continue current active medications at inpatient rehab aspirin 81 mg daily PO calcium carbonate 500 mg PO TID calcitrol .5 mcg PO BID Diflucan 200 mg daily (end date: 01/17/24) magic mouthwash 15 ml PO QID as needed fentanyl patch 25 mcg every 3rd day plavix 75 mg daily PO metoprolol 12.5 mg twice daily PO Protonix twice daily 40 mg oral (for prophylaxis) percocet 5/325 2 tabs q5h as needed for pain magnesium chloride 128 mg BID PO Follow up: PCP 3-5 days Nephrology in 1-2 weeks Cardiology in 1-[address] [facility] Please call to schedule / confirm appointments Vital Signs/Physical Exam: Temp Pulse Resp BP Pulse Ox 97.6 F 62 14 142/71 H 99 01/06/24 12:00 01/06/24 12:00 01/06/24 12:00 01/06/24 12:00 01/06/24 12:00 Laboratory Data at Discharge: WBC 5.00 thou/uL (4.3-10.9) 01/06/24 05:00 Hgb 7.5 g/dL (13.6-17.9) L 01/06/24 09:18 Hct 22.2 % (39.6-49.0) L 01/06/24 09:18 Plt Count 206 thou/uL (152-406) 01/06/24 05:00 PT 13.1 SECONDS (9.5-12.5) H 12/21/23 14:50 INR 1.20 12/21/23 14:50 APTT 24.1 SECONDS (24.3-36.9) L 12/21/23 14:50 Sodium 135 mEq/L (136-145) L 01/06/24 05:00 Potassium 4.1 mEq/L (3.5-5.1) 01/06/24 08:20 BUN 13 mg/dL (7-18) 01/06/24 05:00 Creatinine 0.77 mg/dL (0.70-1.30) 01/06/24 05:00 Glucose 116 mg/dL (74-106) H 01/06/24 05:00 Uric Acid 1.8 mg/dL (3.5-7.2) L 01/06/24 05:00 Phosphorus 2.4 mg/dL (2.5-4.9) L 01/06/24 05:00 Magnesium 1.9 mg/dL (1.6-2.4) 01/06/24 05:00 Total Bilirubin 0.4 mg/dL (0.2-1.0) 01/06/24 05:00 AST < 10 U/L (15-37) L 01/06/24 05:00 ALT < 14 U/L (16-61) L 01/06/24 05:00 Alkaline Phosphatase 92 U/L (45-117) 01/06/24 05:00 Home Medications: Aspirin 81 mg PO DAILY 12/20/23 Lenalidomide [Revlimid] 25 mg PO DAILY 12/20/23 Olmesartan Medoxomil [Benicar] 20 mg PO DAILY 12/20/23 Simvastatin 20 mg PO DAILY 12/20/23 Vitamin D [Drisdol] 50 mcg PO DAILY 12/20/23 Vitamin E (Dl,Tocopheryl Acet) [Vitamin E] 180 mg PO DAILY 12/20/23 dexAMETHasone [Hemady] 20 mg PO DAILY 12/20/23 hydroCHLOROthiazide [Hydrochlorothiazide] 25 mg PO DAILY 12/20/23 Daratumumab [Darzalex] 0 units SQ SEECOM 12/23/23 Velcade 0 units SQ SEECOM 12/23/23 Zometa 0 units SQ SEECOM 12/23/23 Aspirin Chewable [Aspirin Chewable*] 81 mg PO DAILY tab.chew 01/06/24 Calcitrol [Rocaltrol*] 0.5 mcg PO BIDWM cap 01/06/24 Calcium Carbonate [Oscal*] 500 mg PO TID tab 01/06/24 Cholecalciferol (Vitamin D3) [Vitamin D 1000 Iu Tab*] 2,000 unit PO DAILY tab 01/06/24 Clopidogrel Bisulfate [Plavix*] 75 mg PO DAILY 01/06/24 Magic Mouthwash [Magic Mouthwash*] 15 ml PO QID PRN bottle 01/06/24 Magnesium Chloride [Slow-Mag*] 128 mg PO BID tab 01/06/24 Metoprolol Tartrate [Lopressor*] 12.5 mg PO BID 6AM 6PM tab 01/06/24 Oxycodone HCl/Acetaminophen [Percocet 5/325 Tab*] 2 tab PO Q5H PRN tab 01/06/24 Physician Discharge Instructions: Physician discharge instructions: Patient presented due to outpatient labs with electrolyte abnormalities. Presents with epigastric abdominal pain, generalized weakness, poor PO intake over the past weeks. Patient was found to have a perforated diverticulitis complicated by intraabdominal abscess, 3cm ventral hernia, seen on imaging on admission. Dr. Moore, general surgeon was consulted and patient was taken to OR on 12/19 for sigmoid bowel resection with end colostomy, evacuation of intraabdominal abscess, and ventral hernia repair (12/19) Wound culture grew E. coli ESBL. ID was consulted. Patient completed ~10 days of merrem / vanc (12/19-12/29). Patient received TPN from 12/21-12/31 for supplementation nutrition. Once patient's appetite improved and was tolerating oral intake without issues TPN was discontinued. Repeat Urinalysis on (01/02) noted yeast in his urine. Patient was started on PO diflucan 200mg given risk factors/immunocompromsied state, and is to complete 2 week total course. (End date 01/17/24) Patients hemoglobin levels were noted to fluctuate throughout hospitalization post operatively (lowest 6.6 on 12/28) Patient has history multiple myeloma, on chemotherapy prior to admission and is immunosupressed. Patient required 3 units of irradiated PRBCs (12/20 & 12/21, 12/25), 1 unit of PRBCs (12/31), 1 platelet transfusion (12/19), and 2 unit irradiated platelet (12/21, 12/22). Suspect initial thrombocytopenia secondary to cancer/chemo. Hemoglobin remained stable in high 7s/low 8s for rest of hospitalization since last blood transfusion on 12/31. Patient was noted to have an ARSALAN on admission with serum creatinine of 2.84 along with severe electrolyte abnormalities. Renal ultrasound noted a 3.2 cm benign-appearing left renal cyst otherwise negative. Renal function initially improved with fluids, and ARSALAN resolved 12/24. He was noted to have lower extremity edema / swelling due to low albumin and was diuresed with lasix. Sol catheter was initially dc'd 12/25-12/26. Renal function subsequently down-trended substantially over the next few days (peak 4.17 on 12/29) Sol was replaced and patient underwent HD once given worsening renal function. General surgery placed non-tunneled HD CVC on placed 12/29. Renal function improved the morning after patient received dialysis. HD CVC catheter was dc'd 01/02 as patient no longer needed HD. Sol is to be continued on discharge in rehab until scrotal/penile swelling is improved. On day of discharge patient was noted to be diuresing well. On 01/04 did receive some albumin and one dose of torsemide on 01/05 with good response. Patient developed VT and STEMI after surgery 12/19. Underwent emergent heart cath on 12/19 requiring multiple stents. Echo was obtained this hospitalization (12/22) and noted EF of 55-60%, poor study, grade 1 diastolic dysfunction, mild MR/TR Patient was started on brillinta post operatively and was eventually switched to plavix per cardio (01/01) for possible contribution to oozing. Heart cath report: 1. Severe mid LAD disease (~80%) and diagonal disease (80-90%), s/p PCI to LAD and diagonal 2. Significant mid circ/proximal OM1 disease (90%), s/p PCI 3. Severe proximal RPLV disease (~80%) Wound vac was placed post-operatively, and is to continue with this. Follow up with Dr. Moore. Medications: continue current active medications at inpatient rehab aspirin 81 mg daily PO calcium carbonate 500 mg PO TID calcitrol .5 mcg PO BID Diflucan 200 mg daily (end date: 01/17/24) magic mouthwash 15 ml PO QID as needed fentanyl patch 25 mcg every 3rd day plavix 75 mg daily PO metoprolol 12.5 mg twice daily PO Protonix twice daily 40 mg oral (for prophylaxis) percocet 5/325 2 tabs q5h as needed for pain magnesium chloride 128 mg BID PO Follow up: PCP 3-5 days Nephrology in 1-2 weeks Cardiology in 1-[address] [facility] Please call to schedule / confirm appointments Activity: Bedrest Followup: Suhas Martinez DO [ACTIVE - CAN ADMIT] - Fred Moore MD [ACTIVE - CAN ADMIT] - Darren Allan DO [Primary Care Provider] - Oni Greenfield MD [ACTIVE - CAN ADMIT] - Time spent managing pt's care (in minutes): 45
[2024-01-06 13:01] VITALS: TEMP 97.6
[2024-01-06 15:37] VITALS: BP 127/71
--- NOTE | 2024-01-06 16:26 | PN ---
Subjective: Patient lying in bed. No new acute event, getting dialyzed. The patient is lying in be d, not in any acute distress. No other complaints. Objective: Vital Signs: Reviewed. Lungs: Clear to auscultate. Basal crackles. Heart: S1, S2. Regular. Abdomen: Soft, nontender. Bowel sounds present. Extremity: 1+ edema scrotal and penile 3+ edema noted. Laboratory Data: WBC 5, hemoglobin 7.1, platelets are 206, BUN 13, creatinine 0.7. Abdominal wound with wound VAC in place. Colostomy in place. Assessment And Plan: Patient doing better, being transferred to rehab unit. Abdominal wound. Doing well with no abdominal pain. Fluid overload. The patient is getting diuresed. Continue supportive care and wound care. Urinary tract funguria and urine with funguria. Continue to treat with Difluc an. Follow the patient as needed. NF/MODL Voice ID: [id number] Report ID: [id number]
== END 2024-01-06 15:47 | DRG 853 ==
LOC: ER 17:22 → ERHOLD 21:15 → 3RD-ICU 12-20 01:33 → 4TH 12-27 16:50 → 2ND 12-27 19:43 → 3RD-ICU 12-30 15:20 → 2ND 01-02 19:18
PROVIDERS: ADMIT Internal Medicine; ATTEND Hospitalist
PROC: 0DBN0ZZ Excision of Sigmoid Colon, Open Approach (ICD-10-PCS; principal; 2023-12-20)
PROC: 027236Z Dilation of Coronary Artery, Three Arteries with Three Drug-eluting Intraluminal Devices, Percutaneous Approach (ICD-10-PCS; 2023-12-20)
PROC: 0D1N0Z4 Bypass Sigmoid Colon to Cutaneous, Open Approach (ICD-10-PCS; 2023-12-20)
PROC: 0WQF0ZZ Repair Abdominal Wall, Open Approach (ICD-10-PCS; 2023-12-20)
PROC: 02HV33Z Insertion of Infusion Device into Superior Vena Cava, Percutaneous Approach (ICD-10-PCS; 2023-12-20)
PROC: 4A023N7 Measurement of Cardiac Sampling and Pressure, Left Heart, Percutaneous Approach (ICD-10-PCS; 2023-12-20)
PROC: B2111ZZ Fluoroscopy of Multiple Coronary Arteries using Low Osmolar Contrast (ICD-10-PCS; 2023-12-20)
PROC: 3E043XZ Introduction of Vasopressor into Central Vein, Percutaneous Approach (ICD-10-PCS; 2023-12-20)
PROC: 30233R1 Transfusion of Nonautologous Platelets into Peripheral Vein, Percutaneous Approach (ICD-10-PCS; 2023-12-20)
PROC: 02H633Z Insertion of Infusion Device into Right Atrium, Percutaneous Approach (ICD-10-PCS; 2023-12-20)
PROC: 0DH67UZ Insertion of Feeding Device into Stomach, Via Natural or Artificial Opening (ICD-10-PCS; 2023-12-21)
PROC: 3E0G76Z Introduction of Nutritional Substance into Upper GI, Via Natural or Artificial Opening (ICD-10-PCS; 2023-12-21)
PROC: 30233N1 Transfusion of Nonautologous Red Blood Cells into Peripheral Vein, Percutaneous Approach (ICD-10-PCS; 2023-12-21)
PROC: 0T9B70Z Drainage of Bladder with Drainage Device, Via Natural or Artificial Opening (ICD-10-PCS; 2023-12-30)
PROC: 5A1D70Z Performance of Urinary Filtration, Intermittent, Less than 6 Hours Per Day (ICD-10-PCS; 2023-12-30)
PROC: 06PY33Z Removal of Infusion Device from Lower Vein, Percutaneous Approach (ICD-10-PCS; 2024-01-03)
DX: A41.51 Sepsis due to Escherichia coli [E. coli] (principal); I21.3 ST elevation (STEMI) myocardial infarction of unspecified site; K65.1 Peritoneal abscess; K65.9 Peritonitis, unspecified; N17.0 Acute kidney failure with tubular necrosis; R65.21 Severe sepsis with septic shock; K57.20 Diverticulitis of large intestine with perforation and abscess without bleeding; C90.00 Multiple myeloma not having achieved remission; E87.1 Hypo-osmolality and hyponatremia; I47.20 Ventricular tachycardia, unspecified; D62 Acute posthemorrhagic anemia; Z16.12 Extended spectrum beta lactamase (ESBL) resistance; D61.818 Other pancytopenia; I50.30 Unspecified diastolic (congestive) heart failure; E83.51 Hypocalcemia; E87.6 Hypokalemia; E86.0 Dehydration; N28.1 Cyst of kidney, acquired; E83.41 Hypermagnesemia; N50.82 Scrotal pain; E87.5 Hyperkalemia; D63.8 Anemia in other chronic diseases classified elsewhere; D69.59 Other secondary thrombocytopenia; D72.825 Bandemia; E11.9 Type 2 diabetes mellitus without complications; E66.01 Morbid (severe) obesity due to excess calories; K43.9 Ventral hernia without obstruction or gangrene; I25.10 Atherosclerotic heart disease of native coronary artery without angina pectoris; T45.1X5A Adverse effect of antineoplastic and immunosuppressive drugs, initial encounter; M84.58XD Pathological fracture in neoplastic disease, other specified site, subsequent encounter for fracture with routine healing; Z68.33 Body mass index [BMI] 33.0-33.9, adult; Z79.82 Long term (current) use of aspirin; Z79.899 Other long term (current) drug therapy
CPT/HCPCS: 36415; 36430; 36569; 71045; 74018; 74177; 76770; 76937; 80048; 80053; 80202; 81001; 82043; 82310; 82330; 82435; 82570; 82947; 83605; 83615; 83735; 83930; 83935; 84100; 84132; 84156; 84300; 84484; 84550; 85014; 85018; 85025; 85027; 85049; 85347; 85384; 85610; 85730; 86705; 86706; 86850; 86870; 86880; 86900; 86901; 86902; 86920; 86922; 86971; 87040; 87070; 87075; 87076; 87077; 87086; 87088; 87185; 87186; 87205; 87340; 88305; 88307; 90935; 93005; 93306; 93454; 94010; 94640; 96361; 96365; 96367; 96368; 96401; 97110; 97116; 97163; 97165; 97530; 99152; 99153; 99285; C1725; C1760; C1893; C9113; C9600; C9601; G0269; J0461; J0612; J0692; J0694; J1170; J1644; J1650; J1940; J2001; J2185; J2250; J2371; J2543; J3010; J3475; J3480; J7030; J7040; J7042; J7050; J7060; J7120; J7613; J9041; P9016; P9037; P9040; P9047; P9073; P9100; Q5106; Q9967

== ENCOUNTER 2024-03-01 05:33 | Emergency (ER) | payer BC, OTHER ==
[2024-03-01] MEDS ORDERED: CEFTRIAXONE 1000 MG/VIAL ONE (06:42)
[2024-03-01] MEDS ORDERED: METRONIDAZOLE 500mg IVPB 500 MG/100 ML BAG IV ONE (06:42)
[2024-03-01] MEDS ORDERED: NA CHLORIDE 0.9% 1,000 ML ONE ×2 (06:42→08:12)
[2024-03-01] MEDS ORDERED: NA CHLORIDE 0.9% 50 ML ONE (06:42)
[2024-03-01 07:14] LABS: Absolute Eosinophils 0.1 K/uL (0-0.5); Absolute Lymphocytes (CBC) 0.8 K/uL (0.7-4.9); Absolute Monocytes 0.6 K/uL (0.1-1.3); Basophils % 0.2 % (0-1.3); Eosinophils % 1.4 % (0-4.4); Hematocrit 25.2 % (39.6-49.0); Hemoglobin 8.4 g/dL (13.6-17.9); Lymphocytes % 10.9 % (15.3-44.8); MCH 29.4 pg (27.0-35.0); MCHC 33.2 g/dL (32.0-36.0); MCV 88.5 fL (80-100); MPV 7.2 fL (7.6-11.3); Monocytes % 8.4 % (3.3-12.3); Neutrophils % 79.1 % (41.7-73.7); Platelets 211 thou/uL (152-406); RBC Red Blood Cell Count 2.85 M/uL (4.33-5.43); Red Cell Distribution Width 15.6 % (12.1-15.2)
[2024-03-01 07:32] LABS: Albumin 2.2 g/dL (3.4-5.0); Albumin/Globulin Ratio 0.6 (1.1-1.8); Anion Gap 6.8 mEq/L (5.0-15.0); Bilirubin Total 0.4 mg/dL (0.2-1.0); Globulin 3.5 g/dL (2.3-3.5); Potassium 2.8 mEq/L (3.5-5.1); Protein, Total 5.7 g/dL (6.4-8.2)
[2024-03-01] MEDS ORDERED: KCL 20 MEQ/100 mL IVPB 100 ML IV ONE (08:12)
[2024-03-01 08:15] LABS: Specific Gravity 1.022 (1.005-1.030); Sqamous Epithelial None Seen /HPF (None Seen); Urine Bacteria None Seen /HPF (<20); Urine Bilirubin NEGATIVE (Negative); Urine Blood Negative (Negative); Urine Clarity Turbid (Clear); Urine Color Yellow (Yellow); Urine Crystals Unidentified Few /HPF (None Seen); Urine Culture Reflex Order REFLEXED; Urine Glucose NEGATIVE (Negative); Urine Ketones NEGATIVE (Negative); Urine Microscopic Reflex YN ORDER UMIC; Urine Mucus Slight /HPF (None Seen); Urine Nitrite NEGATIVE (Negative); Urine Protein 1+ (Negative); Urine RBC <5 /HPF (None Seen); Urine Urobilinogen 1+ (Normal)
[2024-03-01] MEDS ORDERED: KETOROLAC 30 MG/ML INJ ONE (08:45)
--- NOTE | 2024-03-01 09:24 | RAD REPORT ---
EXAM DESCRIPTION: CT - Abdomen Pelvis W Contrast - 03/01/2024 8:23 am CLINICAL HISTORY: ENTEROCUTANEOUS FISTULA UNDER COLOSTOMY COMPARISON: Abdomen Pelvis W Contrast dated 12/19/2023 TECHNIQUE: Thin cut axial CT imaging of the abdomen and pelvis was performed following intravenous a dministration of iodinated contrast. Multiplanar reformats were generated and reviewed. All CT scans are performed using dose optimization technique as appropriate and may include automated exposure control or mA/KV adjustment according to patient size. FINDINGS: No suspicious findings in the lung bases. The liver, spleen, adrenal glands, and pancreas show no suspicious findings. Gallbladder shows jefry us small layering calculi. Symmetric renal function is seen with no hydronephrosis or suspicious renal mass. Incidental left upp er to mid pole 3.1 cm renal cyst is again seen. Status post partial colectomy, with left lower quadrant colostomy formation. A contained leak has dev eloped near the rectal pouch suture line, predominantly containing gas, measuring 5.0 x 1.9 cm in gre atest axial dimensions. An inflamed segment of small bowel closely approximates the region of the con tained leak, with some small bowel wall thickening, and the low likelihood of enterocolic fistula for mation, see sagittal image 91 series 203 and coronal image 36 series 202. A small fistulous tract ext ends from the collection ventrally and caudally, measuring 8 mm in thickness, and approximately 2.1 c m in length, see series 203 image 92 and axial image 71 series 201. This tract contains some locules of gas. There is inflammation/thickening of the inferior aspect of the left rectus muscle at the leve l of the tract and more caudally. Another ill-defined tract of fluid and gas extends across the lower left anterior abdominal wall to the skin, measuring 4.5 cm in length although see axial image 78. Mild soft tissue thickening along the ventral wall along the midline, correlate with prior median lap arotomy. A small triangular collection measures 2.2 x 1.3 cm, present below the level of the umbilicu s, may represent a seroma. No dilated bowel loops. No free fluid. No hernia, mass or bulky lymphadenopathy. The urinary bladder is without significant finding. No suspicious bony findings. IMPRESSION: Contained leak arising from the colorectal pouch suture line, with adjacent inflammatory changes of small bowel, with possibility but low likelihood of enterocolic fistula. 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 Mild soft tissue thickening of the midline ventral abdominal soft tissues with a small triangular col lection tract, may represent a seroma. Cholelithiasis. The findings were communicated to Juan Diego Guerra on 03/01/2024 at 09:05 hours.
--- NOTE | 2024-03-01 09:42 | ER ---
Nurse's Notes [facility] Name: Shailesh Zavala Age: 68 yrs Sex: Male : 1955 Arrival Date: 03/01/2024 Time: 05:33 Bed 16 Private MD: Darren Allan Diagnosis: Fistula of intestine;Abdominal pain, Generalized Presentation: 03/01 06:05 Chief complaint: Patient's son or daughter states: He had what looked like a boil on jw7 his abdomen, below his 'Ostomy bag. The boil popped and now it is draining liquid that smells like "poop". This spot gets hard and tender to the touch until it is drained and cleaned and now we are worried it might be a fistula. Coronavirus screen: At this time, the client does not indicate any symptoms associated with coronavirus-19. Ebola Screen: No symptoms or risks identified at this time. Initial Sepsis Screen: Does the patient meet any 2 criteria? No. Patient's initial sepsis screen is negative. Does the patient have a suspected source of infection? No. Patient's initial sepsis screen is negative. Risk Assessment: Do you want to hurt yourself or someone else? Patient reports no desire to harm self or others. Onset of symptoms was February 27, 2024. 06:05 Method Of Arrival: Wheelchair jw7 06:05 Acuity: LUCRETIA 3 jw7 Triage Assessment: 06:09 General: Appears in no apparent distress. comfortable, Behavior is calm, cooperative, jw7 appropriate for age. Pain: Complains of pain in abdomen Pain does not radiate. Pain currently is 3 out of 10 on a pain scale. Quality of pain is described as aching, throbbing, Pain began gradually, Is continuous. EENT: No deficits noted. No signs and/or symptoms were reported regarding the EENT system. Neuro: Level of Consciousness is awake, alert, obeys commands, Oriented to person, place, time, situation, Appropriate for age. Cardiovascular: Heart tones S1 S2 present Capillary refill < 3 seconds Clubbing of nail beds is absent JVD is absent Patient's skin is warm and dry. Respiratory: Airway is patent Trachea midline Respiratory effort is even, unlabored, Respiratory pattern is regular, symmetrical. GI: Abdomen is flat, non-distended, Colostomy site is clean and dry. Ostomy appliance is intact. Abd is soft Abdomen is tender to palpation Reports lower abdominal pain, upper abdominal pain. : No deficits noted. No signs and/or symptoms were reported regarding the genitourinary system. Derm: Skin is healthy with good turgor, Skin is dry, Skin is normal, Skin temperature is warm Reports "Popped boil on abdomen under Colostomy on left side of lower abdomen. Musculoskeletal: Circulation, motion, and sensation intact. Range of motion: intact in all extremities. Historical: - Allergies: 06: No Known Allergies; jw7 - Home Meds: 06: duloxetine 30 mg oral Capsule, Delayed Release Sprinkle 1 cap 2 times per day [Active]; jw7 aspirin 81 mg Oral capsule 1 cap daily [Active]; Calcium 500 mg 1 Tab daily [Active]; Vitamine D3 2000 Units 1 cap daily [Active]; Vitamin E 180 mg Oral 1 cap daily [Active]; clopidogrel 75 mg oral tablet 1 tab daily [Active]; metoprolol tartrate 25 mg Oral tablet 1 tab daily [Active]; simvastatin 20 mg Oral tablet 1 tab daily [Active]; omeprazole 20 mg Oral Tablet,disintegrating,delayed release 1 tab daily [Active]; gabapentin 300 mg oral capsule 1 cap 3 times per day [Active]; oxycodone-acetaminophen 10-325 mg Oral tablet 1 tab every 4 to 6 hours for PRN Pain [Active]; - PMHx: 06:09 multiple myeloma; jw7 06:09 Hypertensive disorder; Diabetes mellitus; Hypercholesterolemia; Perforated Bowl; jw7 Cholithiasis; - PSHx: 06:09 Stents X3; Arms - NELDA; Femur - R; jw7 - Immunization history:: Adult Immunizations up to date, Client reports receiving the 2nd dose of the Covid vaccine, Last tetanus immunization: up to date Pneumococcal vaccine is up to date, Flu vaccine is up to date. - Infectious Disease History:: Denies. - Social history:: Smoking status: Patient denies any tobacco usage or history of. Patient/guardian denies using alcohol, street drugs, IV drugs. - Family history:: not pertinent. Screenin:09 [facility] ED Fall Risk Assessment (Adult) History of falling in the last 3 months, jw7 including since admission No falls in past 3 months (0 pts) Confusion or Disorientation No (0 pts) Intoxicated or Sedated No (0 pts) Impaired Gait Yes (1 pt) Mobility Assist Device Used Yes (1 pt) Altered Elimination Yes (1 pt) Score/Fall Risk Level 3 or more points = High Risk Oriented to surroundings, Maintained a safe environment, Educated pt \\T\\ family on fall prevention, incl call for assistance when getting out of bed, Assessed \\T\\ reinforced patient's understanding of fall precautions, Provided non-skid footwear, Hourly rounding (assess needs \\T\\ fall precautionary measures) done. Abuse screen: Denies threats or abuse. Denies injuries from another. Nutritional screening: No deficits noted. Tuberculosis screening: No symptoms or risk factors identified. Assessment: 06:29 General: See Triage Assessment. jw7 07:30 General: Appears in no apparent distress. comfortable, well groomed, well developed, kc6 Behavior is calm, cooperative, appropriate for age. Pain: Complains of pain in abdomen. Neuro: Level of Consciousness is awake, alert, obeys commands, Oriented to person, place, time, situation, Appropriate for age. Cardiovascular: Capillary refill < 3 seconds. Respiratory: Airway is patent Trachea midline Respiratory effort is even, unlabored, Respiratory pattern is regular, symmetrical. : No signs and/or symptoms were reported regarding the genitourinary system. EENT: No signs and/or symptoms were reported regarding the EENT system. Derm: Skin with poor turgor Skin is dry, Skin is normal, Skin temperature is warm. Musculoskeletal: No signs and/or symptoms reported regarding the musculoskeletal system. Circulation, motion, and sensation intact. Capillary refill < 3 seconds, Range of motion: intact in all extremities. 08:30 Reassessment: Patient appears in no apparent distress at this time. No changes from kc6 previously documented assessment. Patient and/or family updated on plan of care and expected duration. Pain level reassessed. Patient is alert, oriented x 3, equal unlabored respirations, skin warm/dry/pink. 09:30 Reassessment: Patient appears in no apparent distress at this time. No changes from kc6 previously documented assessment. Patient and/or family updated on plan of care and expected duration. Pain level reassessed. Patient is alert, oriented x 3, equal unlabored respirations, skin warm/dry/pink. 10:30 Reassessment: Patient appears in no apparent distress at this time. No changes from kc6 previously documented assessment. Patient and/or family updated on plan of care and expected duration. Pain level reassessed. Patient is alert, oriented x 3, equal unlabored respirations, skin warm/dry/pink. Vital Signs: 06:05 BP 112 / 53; Pulse 71; Resp 20; Temp 97.3; Pulse Ox 95% ; Weight 75.75 kg; Height 5 ft. jw7 6 in. ; Pain 3/10; 07:00 BP 120 / 65; Pulse 72; Resp 15 S; Pulse Ox 100% on R/A; kc6 08:52 BP 118 / 63; Pulse 65; Resp 16 S; Pulse Ox 97% on R/A; Pain 8/10; kc6 11:19 BP 137 / 67; Pulse 76; Resp 16 S; Pulse Ox 100% on R/A; kc6 12:00 BP 125 / 67; Pulse 68; Resp 16; Temp 98.4; Pulse Ox 100% ; me1 06:05 Body Mass Index 26.95 (75.75 kg, 167.64 cm) jw7 06:05 Pain Scale: Adult jw7 08:52 Pain Scale: Adult 6 ED Course: 05:43 Patient arrived in ED. gm2 05:44 Darren Allan DO is Private Physician. gm2 06:05 Nakia Valencia RN is Primary Nurse. jw7 06:08 Maximilian Manzo MD is Attending Physician. sp4 06:09 Triage completed. jw7 06:09 Arm band placed on. jw7 06:09 Patient has correct armband on for positive identification. Bed in low position. Call [facility] light in reach. Side rails up X 1. Family accompanied patient. 06:45 Initial lab(s) drawn, by mt, sent to lab. Inserted saline lock: 22 gauge in left jw7 forearm, using aseptic technique. Blood collected. Flushed with 10 mL NS. 07:00 Report received from Nakia Valencia RN. kc6 07:00 Pulse ox on. NIBP on. Door closed. Noise minimized. Lights dimmed. Warm blanket given. kc6 Pillow given. 07:14 Attending Physician role handed off by Maximilian Manzo MD ec2 07:14 Juan Diego Guerra MD is Attending Physician. ec2 08:45 Patient requests pain medication. kc6 09:42 Stanton Rodriguez MD is Hospitalizing Provider. ec2 12:23 No provider procedures requiring assistance completed. IV discontinued, intact, me1 bleeding controlled, No redness/swelling at site. Pressure dressing applied. 12:28 Provided Education on: POC. Verbalized understanding. . me1 Administered Medications: 06:55 Drug: NS 0.9% IV 1000 ml IV at 1 bolus Per protocol; 1000 mL bolus Route: IV; Rate: 1 jw7 bolus; Site: left forearm; 08:51 Follow up: Response: No adverse reaction; IV Status: Completed infusion; IV Intake: kc6 1000ml 06:55 Drug: metroNIDAZOLE IVPB 500 mg 100 ml IVPB at 200 ml/hr once over 30 mins Volume: 100 jw7 ml; Route: IVPB; Rate: 200 ml/hr; Infused Over: 30 mins; Site: left forearm; 08:51 Follow up: Response: No adverse reaction; IV Status: Completed infusion; IV Intake: kc6 100ml 07:35 Drug: Rocephin - Rocephin (cefTRIAXone) IVPB 1 grams IVPB once over 30 mins; (mix in 50 kc6 mL NS) Route: IVPB; Infused Over: 30 mins; Site: left forearm; 08:52 Follow up: Response: No adverse reaction; IV Status: Completed infusion; IV Intake: 14ptwo7 08:44 Drug: Potassium Chloride IV 20 mEq IV at calculated rate once; administer over 1-2 kc6 hours Route: IV; Rate: calculated rate; Site: left forearm; 11:19 Follow up: Response: No adverse reaction; IV Status: Completed infusion; IV Intake: kc6 100ml 08:51 Drug: Ketorolac IVP 15 mg IVP once Route: IVP; Site: left forearm; kc6 11:18 Follow up: Response: No adverse reaction; Pain is decreased kc6 Medication: 12:23 VIS not applicable for this client. me1 Intake: 08:51 IV: 1000ml; Total: 1000ml. kc6 08:51 IV: 100ml; Total: 1100ml. kc6 08:52 IV: 50ml; Total: 1150ml. kc6 11:19 IV: 100ml; Total: 1250ml. kc6 Outcome: 09:42 Decision to Hospitalize by Provider. ec2 12:20 Discharge ordered by . ec2 12:23 Discharged to home via wheelchair, with family, me1 12:23 Condition: stable 12:23 Discharge instructions given to patient, family, Instructed on discharge instructions, follow up and referral plans. Demonstrated understanding of instructions, follow-up care, 12:28 Patient left the ED. me1 Signatures: Nakia Valencia RN RN jw7 Nidhi Sanchez RN RN kc6 Maximilian Manzo MD MD sp4 Deann Peterson RN RN me1 Juan Diego Guerra MD MD ec2 Cat Smiley 2
--- NOTE | 2024-03-01 09:42 | EDPHYS ---
Physician Documentation [facility] Name: Shailesh Zavala Age: 68 yrs Sex: Male : 1955 Arrival Date: 03/01/2024 Time: 05:33 Bed 16 Private MD: Darren Allan ED Physician Juan Diego Guerra HPI: 03/01 06:08 This 68 yrs old Male presents to ER via Unassigned with complaints of BOWEL sp4 ISSUES. 06:27 68-year-old male presents with complaint of draining fecal matter through a small sp4 fistula just underneath his left lower quadrant abdominal colostomy.. . Historical: - Allergies: 06:09 No Known Allergies; jw7 - Home Meds: 06:09 duloxetine 30 mg oral Capsule, Delayed Release Sprinkle 1 cap 2 times per day [Active]; jw7 aspirin 81 mg Oral capsule 1 cap daily [Active]; Calcium 500 mg 1 Tab daily [Active]; Vitamine D3 2000 Units 1 cap daily [Active]; Vitamin E 180 mg Oral 1 cap daily [Active]; clopidogrel 75 mg oral tablet 1 tab daily [Active]; metoprolol tartrate 25 mg Oral tablet 1 tab daily [Active]; simvastatin 20 mg Oral tablet 1 tab daily [Active]; omeprazole 20 mg Oral Tablet,disintegrating,delayed release 1 tab daily [Active]; gabapentin 300 mg oral capsule 1 cap 3 times per day [Active]; oxycodone-acetaminophen 10-325 mg Oral tablet 1 tab every 4 to 6 hours for PRN Pain [Active]; - PMHx: 06:09 multiple myeloma; jw7 06:09 Hypertensive disorder; Diabetes mellitus; Hypercholesterolemia; Perforated Bowl; jw7 Cholithiasis; - PSHx: 06:09 Stents X3; Arms - NELDA; Femur - R; jw7 - Immunization history:: Adult Immunizations up to date, Client reports receiving the 2nd dose of the Covid vaccine, Last tetanus immunization: up to date Pneumococcal vaccine is up to date, Flu vaccine is up to date. - Infectious Disease History:: Denies. - Social history:: Smoking status: Patient denies any tobacco usage or history of. Patient/guardian denies using alcohol, street drugs, IV drugs. - Family history:: not pertinent. ROS: 06:27 Constitutional: Negative for fever, chills, and weight loss, Abdomen/GI: Negative for sp4 abdominal pain, nausea, positive draining enterocutaneous fistula left lower abdomen 06:27 All other systems are negative, Exam: 06:27 Constitutional: This is a well developed, well nourished patient who is awake, alert, sp4 ill-appearing male but nontoxic Head/Face: Normocephalic, atraumatic. Eyes: Pupils equal round and reactive to light, extra-ocular motions intact. Lids and lashes normal. Conjunctiva and sclera are not injected. Cornea within normal limits. Periorbital areas with no swelling, redness, or edema. ENT: Nares patent. No nasal discharge, no septal abnormalities noted. Tympanic membranes are normal and external auditory canals are clear. Oropharynx with no redness, swelling, or masses, exudates, or evidence of obstruction, uvula midline. Mucous membranes moist. Neck: Trachea midline, no thyromegaly or masses palpated, and no cervical lymphadenopathy. Supple, full range of motion without nuchal rigidity, or vertebral point tenderness. Chest/axilla: Normal chest wall appearance and motion. Nontender with no deformity. No lesions are appreciated. Cardiovascular: Regular rate and rhythm with a normal S1 and S2. No gallops, murmurs, or rubs. Normal PMI, no JVD. No pulse deficits. Respiratory: Lungs have equal breath sounds bilaterally, clear to auscultation and percussion. No rales, rhonchi or wheezes noted. No increased work of breathing, no retractions or nasal flaring. Abdomen/GI: Soft, with normal bowel sounds. No distension or tympany. No guarding or rebound. 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 No signs of abscess Back: No spinal tenderness. No costovertebral tenderness. Skin: Warm, dry with normal turgor. Normal color with no rashes, no lesions, and no evidence of cellulitis. MS/ Extremity: Pulses equal, no cyanosis. Neurovascular intact. Full, normal range of motion. Neuro: Awake and alert, GCS 15, oriented to person, place, time, and situation. Cranial nerves II-XII grossly intact. Motor strength 5/5 in all extremities. Sensory grossly intact. Psych: Awake, alert, with orientation to person, place and time. Behavior, mood, and affect are within normal limits Vital Signs: 06:05 BP 112 / 53; Pulse 71; Resp 20; Temp 97.3; Pulse Ox 95% ; Weight 75.75 kg; Height 5 ft. jw7 6 in. ; Pain 3/10; 07:00 BP 120 / 65; Pulse 72; Resp 15 S; Pulse Ox 100% on R/A; kc6 08:52 BP 118 / 63; Pulse 65; Resp 16 S; Pulse Ox 97% on R/A; Pain 8/10; kc6 11:19 BP 137 / 67; Pulse 76; Resp 16 S; Pulse Ox 100% on R/A; kc6 12:00 BP 125 / 67; Pulse 68; Resp 16; Temp 98.4; Pulse Ox 100% ; me1 06:05 Body Mass Index 26.95 (75.75 kg, 167.64 cm) jw7 06:05 Pain Scale: Adult jw7 08:52 Pain Scale: Adult kc6 MDM: 06:15 Patient medically screened. sp4 06:29 Differential diagnosis: bowel obstruction, diverticulitis, gastritis. Data reviewed: sp4 vital signs, nurses notes, lab test result(s), radiologic studies, CT scan. Transition of care: After a detail discussion of the patient's case, care is transferred to Juan Diego Guerra MD. 07:14 ED course: Patient s/o to me by previous physician, in brief, arrives today d/t concern ec2 for enterocutaneous fistula, previous sx w/ Dr. Moore, plan to f/u labs, CTAP. . 07:38 ED course: Metabolic profile shows slight hypokalemia. Lipase within normal ranges. ec2 Pending CT imaging. . 09:38 ED course: CT abdomen pelvis show contained leak in the left lower quadrant measuring ec2 approximately 5 x 2 cm in size. Small fistula noted to the abdominal wall. Will discuss case with Dr. Moore. . 09:41 ED course: Discussed case with Dr. Moore who recommended keeping the patient n.p.o. ec2 admitted to the hospitalist with continued IV antibiotics.. 09:42 ED course: MDM: Differential diagnosis as documented above in ED course; All lab tests ec2 ordered and reviewed as documented above; External records reviewed: Previous ED visit and associated lab work; Discuss inpatient hospitalization: Yes; I discussed the case with: Hospitalist . 12:19 ED course: I discussed case with the surgeon, Dr. Moore who personally evaluated the ec2 patient and recommended transfer. Patient did not want to undergo transfer, is requesting for discharge and he expressed understanding regarding risk and benefits. Will discharge home. Return precautions given. 03/01 07:22 Order name: CBC with Automated Diff; Complete Time: 07:26 EDMS 03/01 07:32 Order name: Comprehensive Metabolic Panel; Complete Time: 07:38 EDMS 03/01 07:32 Order name: Lipase; Complete Time: 07:38 EDMS 03/01 08:17 Order name: Urinalysis w/ reflexes; Complete Time: 08:31 EDMS 03/01 10:16 Order name: Comprehensive Metabolic Panel EDMS 03/01 10:16 Order name: Lipase EDMS 03/01 10:16 Order name: CBC with Automated Diff EDMS 03/01 10:16 Order name: Urinalysis w/ reflexes EDMS 03/01 10:16 Order name: Urine Culture EDMS 03/01 09:24 Order name: CT; Complete Time: 09:49 EDMS 03/01 10:17 Order name: Abdomen EDMS 03/01 06:26 Order name: IV Saline Lock; Complete Time: 06:55 sp4 03/01 06:26 Order name: Labs collected and sent; Complete Time: 06:55 sp4 Administered Medications: 06:55 Drug: NS 0.9% IV 1000 ml IV at 1 bolus Per protocol; 1000 mL bolus Route: IV; Rate: 1 jw7 bolus; Site: left forearm; 08:51 Follow up: Response: No adverse reaction; IV Status: Completed infusion; IV Intake: kc6 1000ml 06:55 Drug: metroNIDAZOLE IVPB 500 mg 100 ml IVPB at 200 ml/hr once over 30 mins Volume: 100 jw7 ml; Route: IVPB; Rate: 200 ml/hr; Infused Over: 30 mins; Site: left forearm; 08:51 Follow up: Response: No adverse reaction; IV Status: Completed infusion; IV Intake: kc6 100ml 07:35 Drug: Rocephin - Rocephin (cefTRIAXone) IVPB 1 grams IVPB once over 30 mins; (mix in 50 kc6 mL NS) Route: IVPB; Infused Over: 30 mins; Site: left forearm; 08:52 Follow up: Response: No adverse reaction; IV Status: Completed infusion; IV Intake: [id number] 08:44 Drug: Potassium Chloride IV 20 mEq IV at calculated rate once; administer over 1-2 kc6 hours Route: IV; Rate: calculated rate; Site: left forearm; 11:19 Follow up: Response: No adverse reaction; IV Status: Completed infusion; IV Intake: kc6 100ml 08:51 Drug: Ketorolac IVP 15 mg IVP once Route: IVP; Site: left forearm; kc6 11:18 Follow up: Response: No adverse reaction; Pain is decreased kc6 Disposition Summary: 03/01/24 12:20 Discharge Ordered Notes: Location: Home(03/01/24 12:20) ec2 Condition: Stable(03/01/24 12:20) ec2 Diagnosis - Fistula of intestine(03/01/24 12:20) ec2 - Abdominal pain, Generalized(03/01/24 12:20) ec2 Followup: ec2 - With: Private Physician - When: - Reason: Recheck today's complaints Discharge Instructions: - Discharge Summary Sheet ec2 - Colostomy With Mucous Fistula, Care After ec2 Forms: - Medication Reconciliation Form ec2 - Antibiotic Education ec2 - Prescription Opioid Use ec2 - Patient Portal Instructions ec2 - Leadership Thank You Letter ec2 Signatures: Dispatcher [employer] Nakia Bustos RN RN jw7 Nidhi Sanchez RN RN kc6 Maximilian Manzo MD MD sp4 Juan Diego Guerra MD MD ec2 Corrections: (The following items were deleted from the chart) 12:20 09:42 Inpatient Admission ec2 ec2 12:20 09:42 Stanton Rodriguez ec2 ec2 12:20 09:42 Telemetry/MedSurg (Inpatient) ec2 ec2 12:20 09:42 Stable ec2 ec2 12:20 09:42 an ongoing problem ec2 ec2 12:20 09:42 are unchanged ec2 ec2 12:20 09:42 Standard ec2 ec2 12:20 09:42 ec2 ec2 12:20 09:42 Fistula of intestine ec2 ec2 12:20 09:42 Abdominal pain, Generalized ec2 ec2
[2024-03-01 13:06] VITALS: O2SAT 100
[2024-03-01 13:07] VITALS: BP 125/67; TEMP 98.4
== END 2024-03-01 12:28 | disposition home or self-care (01) ==
LOC: ER 05:33
DX: K63.2 Fistula of intestine (principal); R10.84 Generalized abdominal pain; Z93.3 Colostomy status
CPT/HCPCS: 96365; 96367; 87088; 85025; 81001; 87086; 36415; 87077; 87186; 83690; 80053; 74177; 96375; 99284; 96366; Q9967; J3480; J7030 ×2; J0696